=== PATIENT | female | born 1955 | race African-American/Black ===

== ENCOUNTER 2016-09-26 21:34 | Inpatient (IN) ==
[2016-09-26] MEDS ORDERED: Ondansetron 4 MG/2 ML VIAL IVP ONE (21:51)
[2016-09-26] MEDS ORDERED: *HR* Morphine 2 MG/ML SYRINGE IVP ONE (21:51)
--- NOTE | 2016-09-26 21:55 | Emergency Department Note ---
Disposition Clinical Impression: Hyperglycemia Abdominal pain Qualifiers: Abdominal location: generalized Qualified Code(s): R10.84 - Generalized abdominal pain Disposition: Still a Patient Condition: Fair Forms: ED Satisfaction Letter Nausea/Vomiting/Diarrhea HPI - General Chief complaint: ED Nausea/Vomiting/Diarrhea Stated complaint: hyperglycemia/n/abd pain Source: patient Limitations: no limitations Nursing Notes Reviewed: Yes Vital Signs Reviewed: Yes - History of Present Illness HPI Narrative: 60-year-old female presents to the emergency Department chief complaint of abdominal pain and nausea. Patient states that she was seen by her primary care doctor and had an abdominal x-rays, but was told she had a high glucose and was subsequently sent to the emergency department for evaluation and treatment. She says she has had nausea without vomiting no diarrhea. Denies fevers or chills. She said the abdominal pain is diffuse and dull in nature. She is a very poor historian and is unsure what medications she is on she is unsure what allergies she has and she is unsure what her medical conditions are. Pt Subjective Complaint: nausea, abdominal pain Onset (ago): day(s) Description of emesis: food contents Associated Abdominal Pain: Yes If pain, Location of pain: diffuse Radiation: diffuse Severity: none Consistency: constant Improves with: nothing Worsens with: nonthing Associated symptoms: Reports: denies other symptoms - Related Data Home Medications Medication Instructions Recorded Confirmed Oxygen 1 each .ROUTE AD 09/26/16 09/26/16 Previous Rx's Medication Instructions Recorded Docusate [Colace] 1 tab PO BID #60 capsule 02/09/16 Polyethylene Glycol 3350 [MiraLAX] 17 gm PO DAILY #1 tub 02/09/16 Fluticasone Propionate Nasal 50 mcg NS BID #1 bottle 03/30/16 [Flonase] Supplies [SUPPLIES] 1 each .ROUTE DAILY #1 each 03/30/16 Supplies [SUPPLIES] 1 each .ROUTE DAILY #1 each 06/09/16 Loratadine [Claritin] 10 mg PO DAILY #30 capsule 08/22/16 GuaiFENesin/Codeine [Robitussin 5 ml PO Q6HR #240 liquid 09/26/16 w/Codeine] Omeprazole [PriLOSEC] 1 cap PO DAILY #30 cap 09/26/16 Oxycodone HCl/Acetaminophen 1 each PO Q6H PRN #60 tablet 09/26/16 [Percocet 5-325 mg Tablet] Promethazine [Phenergan] 25 mg PO Q6HR PRN #30 tablet 09/26/16 Ranitidine HCl [Zantac] 1 tab PO BID #60 tablet 09/26/16 Vitamin E (Dl,Tocopheryl Acet) 1 tab PO BID #60 cap 09/26/16 [Vitamin E] Allergies Allergy/AdvReac Type Severity Reaction Status Date / Time Penicillins [PCN] Allergy Hives Verified 09/26/16 15:11 All systems ED: reviewed and negative except as stated. Constitutional: Reports: as per HPI Eyes: Reports: as per HPI ENT ED: Reports: as per HPI Cardiovascular: Reports: as per HPI Respiratory: Reports: as per HPI Past Medical History - Past Medical History Attestation: Yes The following information was validated with the patient. Medical history: Reports: asthma, CHF, COPD, diabetes, hypertension Psychiatric history: Reports: no psych history - Social History Smoking Status: Former smoker Smokeless Tobacco Status: No Alcohol use: Reports: none Drug use: Reports: none Physical Exam - General Limitations: no limitations General appearance: alert, in no apparent distress - Head Head exam: atraumatic - Eye Eye exam: Present: normal appearance - ENT ENT exam: normal exam - Neck Neck exam: Present: normal inspection - Chest Chest inspection: Present: normal inspection - Respiratory Respiratory exam: Present: normal lung sounds bilaterally - Cardiovascular Cardiovascular exam: Present: regular rate, normal rhythm - Abdominal Exam Abdominal exam: Present: soft, tenderness, normal bowel sounds. Absent: guarding, rigidity Abdominal tenderness: Present: diffuse - Neurological Exam Neurological exam: Present: alert, oriented X3 - Psychiatric Psychiatric exam: Present: normal affect, normal mood - Skin Skin exam: Present: warm, dry, intact Course Vital Signs Temperature 98.8 F 09/26/16 21:36 Pulse Rate 97 09/26/16 21:36 Respiratory Rate 16 09/26/16 21:36 Blood Pressure 133/88 09/26/16 21:36 O2 Sat by Pulse Oximetry 92 09/26/16 21:36 Temperature 98.8 F 09/26/16 21:36 Pulse Rate 99 09/26/16 22:10 Respiratory Rate 20 09/26/16 22:10 Blood Pressure 106/75 09/26/16 22:10 O2 Sat by Pulse Oximetry 94 09/26/16 22:10 Oxygen Delivery Oxygen Delivery Room Air Nausea/Vomiting/Diarrhea - MDM Narrative Medical decision making narrative: Workup for acute abdominal pain, and hyperglycemia. Have to be judicious about fluid used because patient has CHF. Patient was given IV insulin and a small amount of IV fluids. An ABG was ordered but looks to be resulting more like a VBG VBG was then ordered separately to help determine exactly what it was. At the time of shift in patient's workup was still incomplete. The patient was signed out to Dr. Hunt for follow-up on lab testing and final disposition which I anticipate will be admission to the hospital. We see his addendum for final results. - Lab Data Lab results reviewed: Yes I reviewed the patient's lab results. Lab Results 09/26/16 09/26/16 09/26/16 Range/Units 21:39 22:20 22:20 ABG pH 7.42 (7.32-7.45) pH Units ABG pCO2 42 (35-45) mmHg ABG pO2 49 L* (85-104) mmHg ABG HCO3 27.2 H (21-27) mEQ/L ABG Total CO2 28.5 H (20-26) mEq/L ABG O2 Saturation 85 L (95-98) % ABG Base Excess 2.3 (-2.0 to 3.0) mEq/L Blood Gas Modality RA Inspired O2 21 % POC Glucose 540 H* (58-89) Beta-Hydroxybutyric Acd 0.31 H (0.02-0.27) mmol/L S.B.A.R. - S.B.A.R. Transition of Care: Transition of care to 11 PM [facility] shift doctor. Report was given to . Who assumed care. Very little information was available in terms of lab testing and no radiology reports had been completed at the time of transfer care. Situation: Demographics Background: Presenting Complaint Assessment: Vital Signs, Course and respsone to treatment, Exam Concerns, Pertinant Lab Results, Outstanding Labs Recommendation: Recommendation based on pending studies, treatments, or consults S.B.A.R. Report Given to: Dr Hunt S.B.A.RJoseph Repor Time: 23:06
[2016-09-26 22:28] LABS: ABG Base Excess 2.3 mEq/L (-2.0 to 3.0); ABG HCO3 27.2 mEQ/L (21-27); ABG Oxygen Saturation 85 % (95-98); ABG PCO2 42 mmHg (35-45); ABG PH 7.42 pH Units (7.32-7.45); ABG TCO2 28.5 mEq/L (20-26)
[2016-09-26 22:32] LABS: ABG PO2 49 mmHg (85-104)
[2016-09-26 22:33] LABS: Blood Gas FiO2 21 %
[2016-09-26] MEDS ORDERED: Insulin Human Regular 10 UNIT in 0.9 % Sodium Chloride 10 ML IV ONE (22:47)
[2016-09-26] MEDS ORDERED: 0.9 % Sodium Chloride 250 ML IVC ONE (22:48)
[2016-09-26 22:59] LABS: Bilirubin,Urine Negative (Negative); Blood,Urine Small (Negative); Clarity,Urine Cloudy (Clear); Color,Urine Yellow (Yellow); Glucose,Urine (UA) >=1000 mg/dL (Normal); Ketones,Urine Negative (Negative); Leukocyte Esterase,Urine Small (Negative); Nitrite,Urine Negative (Negative); Protein,Urine 30 mg/dL (Neg-Trace); Specific Gravity,Urine 1.027 (1.010-1.025); Urobilinogen,Urine Normal (Normal)
[2016-09-26 23:04] LABS: Bacteria,Urine Moderate per hpf (None-Few); Hyaline Casts,Urine None Seen per lpf (None-Few); RBC,Urine 15-30 per hpf (0-3); Squamous Epithelial Cell,Urine Many per lpf (None-Few); WBC,Urine 50-100 per hpf (0-3)
[2016-09-26 23:50] LABS: VBG HCO3 26.6 mEq/L (21-27); VBG PH 7.3 pH Units (7.32-7.42)
[2016-09-26 23:57] LABS: Basophils % 0.4 %; Eosinophils % 0.1 %; Hematocrit 45.6 % (35.3-44.9); Hemoglobin 13.8 g/dL (11.5-15.4); Immature Granulocytes % 0.5 % (0-4); Immature Platelets 8.7 % (1.1-6.1); Lymphocytes # 1.3 K/mcL (0.6-4.6); Lymphocytes % 12.8 %; Mean Corpuscular HGB Conc 30.3 g/dL (31.6-35.5); Mean Corpuscular Hemoglobin 21.8 pg (28.0-33.3); Monocytes # 0.3 K/mcL (0.0-1.3); Monocytes % 3.3 %; Platelet Count 136 K/mcL (140-400); Red Blood Count 6.33 M/mcL (3.82-4.97); Red Cell Distribution Width 17.2 % (11.5-14.5); Segmented Neutrophils % 82.9 %
[2016-09-27] LABS: Neutrophils # 8.5 K/mcL (1.6-8.9)
[2016-09-27 00:15] LABS: Anisocytosis 1+ (Not Present); Hypochromasia Present (Not Present); Large Platelets Present (Not Present); Microcytosis Present (Not Present); Platelet Estimate Normal (Normal)
[2016-09-27 00:44] LABS: Albumin/Globulin Ratio 0.7 (1.1-2.2); Bilirubin,Total 1.6 mg/dL (0.2-1.2); Globulin 4.7 g/dL (2.4-3.5)
[2016-09-27 00:45] LABS: Calcium 9.5 mg/dL (8.6-10.8); Total Protein 7.8 g/dL (6.0-8.3)
[2016-09-27 00:46] LABS: Albumin 3.1 g/dL (3.5-5.0)
[2016-09-27] MEDS ORDERED: Levofloxacin 750 MG/150 ML 750 MG/150 ML BAG IVPB STA (00:52)
[2016-09-27] MEDS ORDERED: 0.9 % Sodium Chloride 500 ML IVC ONE ×2 (00:58→20:01)
[2016-09-27] MEDS ORDERED: Insulin Human Regular 20 UNIT in 0.9 % Sodium Chloride 10 ML IV ONE (00:59)
[2016-09-27] MEDS ORDERED: 0.9 % Sodium Chloride 1,000 ML IVC ONE ×2 (02:54→04:17)
--- NOTE | 2016-09-27 02:56 | Emergency Department Note ---
Disposition Clinical Impression: Hyperglycemia, DKA (diabetic ketoacidoses), UTI (urinary tract infection), Hypotension Abdominal pain Qualifiers: Abdominal location: generalized Qualified Code(s): R10.84 - Generalized abdominal pain Disposition: Admitted As Inpatient Condition: Fair Referrals: NO,PCP [Primary Care Provider] - Forms: ED Satisfaction Letter Time of Disposition: 01:00 General Adult HPI - General Chief complaint: ED Nausea/Vomiting/Diarrhea Stated complaint: hyperglycemia/n/abd pain Time Seen by Provider: 09/26/16 23:02 Source: patient Limitations: no limitations - History of Present Illness Pain Scale: 2 - Related Data Home Medications Medication Instructions Recorded Confirmed Oxygen 1 each .ROUTE AD 09/26/16 09/26/16 Previous Rx's Medication Instructions Recorded Docusate [Colace] 1 tab PO BID #60 capsule 02/09/16 Polyethylene Glycol 3350 [MiraLAX] 17 gm PO DAILY #1 tub 02/09/16 Fluticasone Propionate Nasal 50 mcg NS BID #1 bottle 03/30/16 [Flonase] Supplies [SUPPLIES] 1 each .ROUTE DAILY #1 each 03/30/16 Supplies [SUPPLIES] 1 each .ROUTE DAILY #1 each 06/09/16 Loratadine [Claritin] 10 mg PO DAILY #30 capsule 08/22/16 GuaiFENesin/Codeine [Robitussin 5 ml PO Q6HR #240 liquid 09/26/16 w/Codeine] Omeprazole [PriLOSEC] 1 cap PO DAILY #30 cap 09/26/16 Oxycodone HCl/Acetaminophen 1 each PO Q6H PRN #60 tablet 09/26/16 [Percocet 5-325 mg Tablet] Promethazine [Phenergan] 25 mg PO Q6HR PRN #30 tablet 09/26/16 Ranitidine HCl [Zantac] 1 tab PO BID #60 tablet 09/26/16 Vitamin E (Dl,Tocopheryl Acet) 1 tab PO BID #60 cap 09/26/16 [Vitamin E] Allergies Allergy/AdvReac Type Severity Reaction Status Date / Time Penicillins [PCN] Allergy Hives Verified 09/27/16 06:50 Constitutional: Reports: as per HPI Eyes: Reports: as per HPI ENT ED: Reports: as per HPI Cardiovascular: Reports: as per HPI Respiratory: Reports: as per HPI Past Medical History - Past Medical History Medical history: Reports: asthma, CHF, COPD, diabetes, hypertension Psychiatric history: Reports: no psych history - Social History Smoking Status: Former smoker Smokeless Tobacco Status: No Alcohol use: Reports: none Drug use: Reports: none Physical Exam - General Limitations: no limitations General appearance: alert, in no apparent distress Course Vital Signs Temperature 98.8 F 09/26/16 21:36 Pulse Rate 97 09/26/16 21:36 Respiratory Rate 16 09/26/16 21:36 Blood Pressure 133/88 09/26/16 21:36 O2 Sat by Pulse Oximetry 92 09/26/16 21:36 Temperature 98.8 F 09/26/16 21:36 Pulse Rate 100 09/27/16 06:40 Respiratory Rate 20 09/27/16 06:40 Blood Pressure 97/45 09/27/16 06:40 O2 Sat by Pulse Oximetry 96 09/27/16 06:40 Oxygen Delivery Oxygen Delivery Nasal Cannula Procedures - Central Line Placement Right IJ Central Line Inserted*: Yes Central Line Insertion: emergent Consent Obtained: written consent Procedural Pause: verify patient name and date of , timeout performed per policy, yoav and assess the site, assemble equipment and verify supplies, perform hand hygiene Patient Placed on Monitor/Pulse Ox: Yes During the Procedure: clinician is wearing sterile gloves, cap, mask,& gown during insertion, sterile field and sterile technique are maintained, patient's face is covered with drape or mask and wearing a cap, everyone in room is wearing a mask Prep the Procedure Site: apply chloraprep to the skin using a back and forth scrubbing motion, apply chloraprep for 30 seconds (upper body), 1-2 min ( femoral sites), allow prep to dry, drape the patient with a full body drape Local Anesthetic: lidocaine 1% Amount of anesthesia used (mL): 3 Ultrasound Used for Placement: Yes Central Line Lumen Inserted: triple Post Procedure: sutured in place, good blood return, all ports aspirated, flushed, capped, sterile dressing applied, guide wire removed and visualized, dressing is dated Post Procedure X-Ray: tip of catheter in good position, no pneumothorax seen Patient Tolerated Procedure: well, no complications Complications: none Name of Clinician Inserting Central Line: Zackery Date: 09/27/16 Time: 02:56 Medical Decision Making - MDM Narrative Medical decision making narrative: Patient received in sign out from Dr. Rider pending laboratory evaluation, imaging and disposition. Patient blood pressure became hypotensive during her stay and required resuscitation with IV fluids. Patient was possibly going to require pressors for control of her blood pressure. However after administration of 2 L of IV fluid her BP improved to a map greater than 65. Patient given levofloxacin for likely urinary tract infection causing DKA. Patient is comfortable with the plan for admission to the hospital for continuation of care. - Lab Data Result diagrams: 09/27/16 06:06 09/27/16 06:06 Lab Results 09/26/16 09/26/16 09/26/16 Range/Units 21:39 21:51 22:20 WBC (4.3-11.1) K/mcL RBC (3.82-4.97) M/mcL Hgb (11.5-15.4) g/dL Hct (35.3-44.9) % MCV (83.0-100.0) fL MCH (28.0-33.3) pg MCHC (31.6-35.5) g/dL RDW (11.5-14.5) % Plt Count (140-400) K/mcL MPV Immature Gran % (0-4) % Seg Neutrophils % % Lymphocytes % % Monocytes % % Eosinophils % % Basophils % % Neutrophils # (1.6-8.9) K/mcL Lymphocytes # (0.6-4.6) K/mcL Monocytes # (0.0-1.3) K/mcL Eosinophils # (0.0-0.6) K/mcL Basophils # (0.0-0.2) K/mcL Platelet Estimate (Normal) Large Platelets (Not Present) Immature Plt Fraction (1.1-6.1) % Hypochromasia (Not Present) Anisocytosis (Not Present) Microcytosis (Not Present) ABG pH (7.32-7.45) pH Units ABG pCO2 (35-45) mmHg ABG pO2 (85-104) mmHg ABG HCO3 (21-27) mEQ/L ABG Total CO2 (20-26) mEq/L ABG O2 Saturation (95-98) % ABG Base Excess (-2.0 to 3.0) mEq/L VBG pH (7.32-7.42) pH Units VBG pCO2 (41-51) mmHg VBG pO2 (25-40) mmHg VBG HCO3 (21-27) mEq/L Blood Gas Modality Inspired O2 % Sodium (136-145) mEq/L Potassium (3.5-4.5) mEq/L Chloride (98-109) mEq/L Carbon Dioxide (19-29) mEq/L BUN (7-20) mg/dL Creatinine (0.57-1.11) mg/dL Est GFR ( Amer) (> 60) Est GFR (Non-Af Amer) (> 60) BUN/Creatinine Ratio (6-26) Glucose (70-99) mg/dL POC Glucose 540 H* (58-89) Calculated Osmolality (280-300) Calcium (8.6-10.8) mg/dL Magnesium (1.6-2.6) mg/dL Total Bilirubin (0.2-1.2) mg/dL AST (5-34) Units/L ALT (0-55) Units/L Alkaline Phosphatase (38-126) Units/L Serum Total Protein (6.0-8.3) g/dL Albumin (3.5-5.0) g/dL Globulin (2.4-3.5) g/dL Albumin/Globulin Ratio (1.1-2.2) Beta-Hydroxybutyric Acd 0.31 H (0.02-0.27) mmol/L Urine Color Yellow (Yellow) Urine Clarity Cloudy A (Clear) Urine pH 6.0 (5.0-8.0) pH Units Ur Specific [place] 1.027 H (1.010-1.025) Urine Protein 30 H (Neg-Trace) mg/dL Urine Glucose (UA) >=1000 H (Normal) mg/dL Urine Ketones Negative (Negative) mg/dL Urine Blood Small H (Negative) Urine Nitrite Negative (Negative) Urine Bilirubin Negative (Negative) Urine Urobilinogen Normal (Normal) mg/dL Ur Leukocyte Esterase Small H (Negative) Urine Microscopic RBC 15-30 H (0-3) per hpf Urine Microscopic WBC 50-100 H (0-3) per hpf Ur Squamous Epith Cells Many H (None-Few) per lpf Urine Bacteria Moderate H (None-Few) per hpf Hyaline Casts None Seen (None-Few) per lpf Ur Culture Indicated? YES A (NO) 09/26/16 09/26/16 09/26/16 Range/Units 22:20 23:45 23:45 WBC 10.3 (4.3-11.1) K/mcL RBC 6.33 H (3.82-4.97) M/mcL Hgb 13.8 (11.5-15.4) g/dL Hct 45.6 H (35.3-44.9) % MCV 72.0 L (83.0-100.0) fL MCH 21.8 L (28.0-33.3) pg MCHC 30.3 L (31.6-35.5) g/dL RDW 17.2 H (11.5-14.5) % Plt Count 136 L (140-400) K/mcL MPV TNP Immature Gran % 0.5 (0-4) % Seg Neutrophils % 82.9 % Lymphocytes % 12.8 % Monocytes % 3.3 % Eosinophils % 0.1 % Basophils % 0.4 % Neutrophils # 8.5 (1.6-8.9) K/mcL Lymphocytes # 1.3 (0.6-4.6) K/mcL Monocytes # 0.3 (0.0-1.3) K/mcL Eosinophils # 0.0 (0.0-0.6) K/mcL Basophils # 0.0 (0.0-0.2) K/mcL Platelet Estimate Normal (Normal) Large Platelets Present A (Not Present) Immature Plt Fraction 8.7 H (1.1-6.1) % Hypochromasia Present A (Not Present) Anisocytosis 1+ A (Not Present) Microcytosis Present A (Not Present) ABG pH 7.42 (7.32-7.45) pH Units ABG pCO2 42 (35-45) mmHg ABG pO2 49 L* (85-104) mmHg ABG HCO3 27.2 H (21-27) mEQ/L ABG Total CO2 28.5 H (20-26) mEq/L ABG O2 Saturation 85 L (95-98) % ABG Base Excess 2.3 (-2.0 to 3.0) mEq/L VBG pH (7.32-7.42) pH Units VBG pCO2 (41-51) mmHg VBG pO2 (25-40) mmHg VBG HCO3 (21-27) mEq/L Blood Gas Modality RA Inspired O2 21 % Sodium 133 L (136-145) mEq/L Potassium 5.0 H (3.5-4.5) mEq/L Chloride 95 L (98-109) mEq/L Carbon Dioxide 22 (19-29) mEq/L BUN 20 (7-20) mg/dL Creatinine 2.04 H (0.57-1.11) mg/dL Est GFR ( Amer) 30 L (> 60) Est GFR (Non-Af Amer) 25 L (> 60) BUN/Creatinine Ratio 10 (6-26) Glucose 529 H* (70-99) mg/dL POC Glucose (58-89) Calculated Osmolality 303 H (280-300) Calcium 9.5 (8.6-10.8) mg/dL Magnesium (1.6-2.6) mg/dL Total Bilirubin 1.6 H (0.2-1.2) mg/dL AST 28 (5-34) Units/L ALT 43 (0-55) Units/L Alkaline Phosphatase 118 (38-126) Units/L Serum Total Protein 7.8 (6.0-8.3) g/dL Albumin 3.1 L (3.5-5.0) g/dL Globulin 4.7 H (2.4-3.5) g/dL Albumin/Globulin Ratio 0.7 L (1.1-2.2) Beta-Hydroxybutyric Acd (0.02-0.27) mmol/L Urine Color (Yellow) Urine Clarity (Clear) Urine pH (5.0-8.0) pH Units Ur Specific [place] (1.010-1.025) Urine Protein (Neg-Trace) mg/dL Urine Glucose (UA) (Normal) mg/dL Urine Ketones (Negative) mg/dL Urine Blood (Negative) Urine Nitrite (Negative) Urine Bilirubin (Negative) Urine Urobilinogen (Normal) mg/dL Ur Leukocyte Esterase (Negative) Urine Microscopic RBC (0-3) per hpf Urine Microscopic WBC (0-3) per hpf Ur Squamous Epith Cells (None-Few) per lpf Urine Bacteria (None-Few) per hpf Hyaline Casts (None-Few) per lpf Ur Culture Indicated? (NO) 09/26/16 09/27/16 09/27/16 Range/Units 23:45 00:21 00:22 WBC (4.3-11.1) K/mcL RBC (3.82-4.97) M/mcL Hgb (11.5-15.4) g/dL Hct (35.3-44.9) % MCV (83.0-100.0) fL MCH (28.0-33.3) pg MCHC (31.6-35.5) g/dL RDW (11.5-14.5) % Plt Count (140-400) K/mcL MPV Immature Gran % (0-4) % Seg Neutrophils % % Lymphocytes % % Monocytes % % Eosinophils % % Basophils % % Neutrophils # (1.6-8.9) K/mcL Lymphocytes # (0.6-4.6) K/mcL Monocytes # (0.0-1.3) K/mcL Eosinophils # (0.0-0.6) K/mcL Basophils # (0.0-0.2) K/mcL Platelet Estimate (Normal) Large Platelets (Not Present) Immature Plt Fraction (1.1-6.1) % Hypochromasia (Not Present) Anisocytosis (Not Present) Microcytosis (Not Present) ABG pH (7.32-7.45) pH Units ABG pCO2 (35-45) mmHg ABG pO2 (85-104) mmHg ABG HCO3 (21-27) mEQ/L ABG Total CO2 (20-26) mEq/L ABG O2 Saturation (95-98) % ABG Base Excess (-2.0 to 3.0) mEq/L VBG pH 7.30 L (7.32-7.42) pH Units VBG pCO2 54 H (41-51) mmHg VBG pO2 25 (25-40) mmHg VBG HCO3 26.6 (21-27) mEq/L Blood Gas Modality Inspired O2 % Sodium (136-145) mEq/L Potassium (3.5-4.5) mEq/L Chloride (98-109) mEq/L Carbon Dioxide (19-29) mEq/L BUN (7-20) mg/dL Creatinine (0.57-1.11) mg/dL Est GFR ( Amer) (> 60) Est GFR (Non-Af Amer) (> 60) BUN/Creatinine Ratio (6-26) Glucose (70-99) mg/dL POC Glucose 449 H* 468 H* (58-89) Calculated Osmolality (280-300) Calcium (8.6-10.8) mg/dL Magnesium (1.6-2.6) mg/dL Total Bilirubin (0.2-1.2) mg/dL AST (5-34) Units/L ALT (0-55) Units/L Alkaline Phosphatase (38-126) Units/L Serum Total Protein (6.0-8.3) g/dL Albumin (3.5-5.0) g/dL Globulin (2.4-3.5) g/dL Albumin/Globulin Ratio (1.1-2.2) Beta-Hydroxybutyric Acd (0.02-0.27) mmol/L Urine Color (Yellow) Urine Clarity (Clear) Urine pH (5.0-8.0) pH Units Ur Specific [place] (1.010-1.025) Urine Protein (Neg-Trace) mg/dL Urine Glucose (UA) (Normal) mg/dL Urine Ketones (Negative) mg/dL Urine Blood (Negative) Urine Nitrite (Negative) Urine Bilirubin (Negative) Urine Urobilinogen (Normal) mg/dL Ur Leukocyte Esterase (Negative) Urine Microscopic RBC (0-3) per hpf Urine Microscopic WBC (0-3) per hpf Ur Squamous Epith Cells (None-Few) per lpf Urine Bacteria (None-Few) per hpf Hyaline Casts (None-Few) per lpf Ur Culture Indicated? (NO) 09/27/16 09/27/16 09/27/16 Range/Units 04:42 06:06 06:06 WBC 15.8 H D (4.3-11.1) K/mcL RBC 5.26 H (3.82-4.97) M/mcL Hgb 11.7 D (11.5-15.4) g/dL Hct 37.3 (35.3-44.9) % MCV 70.9 L (83.0-100.0) fL MCH 22.2 L (28.0-33.3) pg MCHC 31.4 L (31.6-35.5) g/dL RDW 15.7 H (11.5-14.5) % Plt Count 137 L (140-400) K/mcL MPV 12.4 Immature Gran % (0-4) % Seg Neutrophils % % Lymphocytes % % Monocytes % % Eosinophils % % Basophils % % Neutrophils # (1.6-8.9) K/mcL Lymphocytes # (0.6-4.6) K/mcL Monocytes # (0.0-1.3) K/mcL Eosinophils # (0.0-0.6) K/mcL Basophils # (0.0-0.2) K/mcL Platelet Estimate (Normal) Large Platelets (Not Present) Immature Plt Fraction 8.6 H (1.1-6.1) % Hypochromasia (Not Present) Anisocytosis (Not Present) Microcytosis (Not Present) ABG pH (7.32-7.45) pH Units ABG pCO2 (35-45) mmHg ABG pO2 (85-104) mmHg ABG HCO3 (21-27) mEQ/L ABG Total CO2 (20-26) mEq/L ABG O2 Saturation (95-98) % ABG Base Excess (-2.0 to 3.0) mEq/L VBG pH (7.32-7.42) pH Units VBG pCO2 (41-51) mmHg VBG pO2 (25-40) mmHg VBG HCO3 (21-27) mEq/L Blood Gas Modality Inspired O2 % Sodium 133 L (136-145) mEq/L Potassium 4.7 H (3.5-4.5) mEq/L Chloride 101 (98-109) mEq/L Carbon Dioxide 22 (19-29) mEq/L BUN 22 H (7-20) mg/dL Creatinine 2.54 H (0.57-1.11) mg/dL Est GFR ( Amer) 23 L (> 60) Est GFR (Non-Af Amer) 19 L (> 60) BUN/Creatinine Ratio 9 (6-26) Glucose 478 H (70-99) mg/dL POC Glucose 409 H* (58-89) Calculated Osmolality 300 (280-300) Calcium 8.1 L (8.6-10.8) mg/dL Magnesium 1.1 L (1.6-2.6) mg/dL Total Bilirubin (0.2-1.2) mg/dL AST (5-34) Units/L ALT (0-55) Units/L Alkaline Phosphatase (38-126) Units/L Serum Total Protein (6.0-8.3) g/dL Albumin (3.5-5.0) g/dL Globulin (2.4-3.5) g/dL Albumin/Globulin Ratio (1.1-2.2) Beta-Hydroxybutyric Acd (0.02-0.27) mmol/L Urine Color (Yellow) Urine Clarity (Clear) Urine pH (5.0-8.0) pH Units Ur Specific [place] (1.010-1.025) Urine Protein (Neg-Trace) mg/dL Urine Glucose (UA) (Normal) mg/dL Urine Ketones (Negative) mg/dL Urine Blood (Negative) Urine Nitrite (Negative) Urine Bilirubin (Negative) Urine Urobilinogen (Normal) mg/dL Ur Leukocyte Esterase (Negative) Urine Microscopic RBC (0-3) per hpf Urine Microscopic WBC (0-3) per hpf Ur Squamous Epith Cells (None-Few) per lpf Urine Bacteria (None-Few) per hpf Hyaline Casts (None-Few) per lpf Ur Culture Indicated? (NO) Critical Care Time Critical Care Time: Yes Total Critical Care Time: 62 Attestation: The high probability of a clinically significant, sudden or life threatening deterioration of the cardiovascular system(s) required my full and direct attention, intervention and personal management. The aggregate critical care time was 62 minutes. This time is in addition to time spent performing reported procedures but includes the following: x Data Review and interpretation x Patient assessment and monitoring of vital signs x Documentation x Medication orders and management
[2016-09-27] MEDS ORDERED: 0.9 % Sodium Chloride 1,000 ML ONE (04:16)
[2016-09-27] MEDS ORDERED: Sodium Bicarbonate 50 MEQ/50 ML VIAL IVP ONE (05:06)
[2016-09-27] MEDS ORDERED: Sodium Bicarbonate 150 MEQ in D5% in Water 1,000 ML IVC SCH (05:15)
[2016-09-27 06:18] LABS: Mean Corpuscular Hemoglobin 22.2 pg (28.0-33.3)
[2016-09-27 06:20] LABS: Hematocrit 37.3 % (35.3-44.9); Hemoglobin 11.7 g/dL (11.5-15.4); Immature Platelets 8.6 % (1.1-6.1); Mean Corpuscular HGB Conc 31.4 g/dL (31.6-35.5); Mean Corpuscular Volume 70.9 fL (83.0-100.0); Mean Platelet Volume 12.4 fL (9.4-12.4); Platelet Count 137 K/mcL (140-400); Red Blood Count 5.26 M/mcL (3.82-4.97); Red Cell Distribution Width 15.7 % (11.5-14.5)
[2016-09-27 06:32] LABS: Calcium 8.1 mg/dL (8.6-10.8); Magnesium 1.1 mg/dL (1.6-2.6); Potassium 4.7 mEq/L (3.5-4.5)
[2016-09-27] MEDS ORDERED: Sodium Bicarbonate 50 MEQ/50 ML VIAL ONE (06:58)
[2016-09-27 07:03] LABS: Hypochromasia Present (Not Present); Lymphocytes # 2.2 K/mcL (0.6-4.6); Neutrophils # 11.7 K/mcL (1.6-8.9)
[2016-09-27 07:04] LABS: Large Platelets Present (Not Present); Microcytosis Present (Not Present); Platelet Estimate Normal (Normal)
[2016-09-27] MEDS ORDERED: Insulin Regular, Human 100 UNIT/ML IV PRN (07:10)
[2016-09-27] MEDS ORDERED: *HR* Dextrose 50 % in Water (Syg) 50 ML SYRINGE IVP PRN ×2 (07:10→14:30)
[2016-09-27] MEDS ORDERED: D5% in 0.45% NACL 1,000 ML IVC PRN (07:10)
--- NOTE | 2016-09-27 07:57 | Emergency Department Note ---
Disposition Clinical Impression: Hyperglycemia, DKA (diabetic ketoacidoses), UTI (urinary tract infection), Hypotension Abdominal pain Qualifiers: Abdominal location: generalized Qualified Code(s): R10.84 - Generalized abdominal pain Disposition: Admitted As Inpatient Condition: Fair Referrals: NO,PCP [Primary Care Provider] - Forms: ED Satisfaction Letter General Adult HPI - General Chief complaint: ED Nausea/Vomiting/Diarrhea Stated complaint: hyperglycemia/n/abd pain Time Seen by Provider: 09/26/16 23:02 Source: patient Limitations: no limitations - History of Present Illness Pain Scale: 3 - Related Data Home Medications Medication Instructions Recorded Confirmed Oxygen 1 each .ROUTE AD 09/26/16 09/26/16 Previous Rx's Medication Instructions Recorded Docusate [Colace] 1 tab PO BID #60 capsule 02/09/16 Polyethylene Glycol 3350 [MiraLAX] 17 gm PO DAILY #1 tub 02/09/16 Fluticasone Propionate Nasal 50 mcg NS BID #1 bottle 03/30/16 [Flonase] Supplies [SUPPLIES] 1 each .ROUTE DAILY #1 each 03/30/16 Supplies [SUPPLIES] 1 each .ROUTE DAILY #1 each 06/09/16 Loratadine [Claritin] 10 mg PO DAILY #30 capsule 08/22/16 GuaiFENesin/Codeine [Robitussin 5 ml PO Q6HR #240 liquid 09/26/16 w/Codeine] Omeprazole [PriLOSEC] 1 cap PO DAILY #30 cap 09/26/16 Oxycodone HCl/Acetaminophen 1 each PO Q6H PRN #60 tablet 09/26/16 [Percocet 5-325 mg Tablet] Promethazine [Phenergan] 25 mg PO Q6HR PRN #30 tablet 09/26/16 Ranitidine HCl [Zantac] 1 tab PO BID #60 tablet 09/26/16 Vitamin E (Dl,Tocopheryl Acet) 1 tab PO BID #60 cap 09/26/16 [Vitamin E] Allergies Allergy/AdvReac Type Severity Reaction Status Date / Time Penicillins [PCN] Allergy Hives Verified 09/27/16 06:50 Constitutional: Reports: as per HPI Eyes: Reports: as per HPI ENT ED: Reports: as per HPI Cardiovascular: Reports: as per HPI Respiratory: Reports: as per HPI Past Medical History - Past Medical History Medical history: Reports: asthma, CHF, COPD, diabetes, hypertension Psychiatric history: Reports: no psych history - Social History Smoking Status: Former smoker Smokeless Tobacco Status: No Alcohol use: Reports: none Drug use: Reports: none Physical Exam - General Limitations: no limitations General appearance: alert, in no apparent distress Course Vital Signs Temperature 98.8 F 09/26/16 21:36 Pulse Rate 97 09/26/16 21:36 Respiratory Rate 16 09/26/16 21:36 Blood Pressure 133/88 09/26/16 21:36 O2 Sat by Pulse Oximetry 92 09/26/16 21:36 Temperature 98.8 F 09/26/16 21:36 Pulse Rate 99 09/27/16 07:45 Respiratory Rate 24 09/27/16 07:45 Blood Pressure 112/96 09/27/16 07:45 O2 Sat by Pulse Oximetry 96 09/27/16 07:45 Oxygen Delivery Oxygen Delivery Nasal Cannula Medical Decision Making - Lab Data Result diagrams: 09/27/16 06:06 09/27/16 06:06 Lab Results 09/26/16 09/26/16 09/26/16 Range/Units 21:39 21:51 22:20 WBC (4.3-11.1) K/mcL RBC (3.82-4.97) M/mcL Hgb (11.5-15.4) g/dL Hct (35.3-44.9) % MCV (83.0-100.0) fL MCH (28.0-33.3) pg MCHC (31.6-35.5) g/dL RDW (11.5-14.5) % Plt Count (140-400) K/mcL MPV Immature Gran % (0-4) % Seg Neutrophils % % Band Neutrophils % (0-4) % Lymphocytes % % Monocytes % % Eosinophils % % Basophils % % Metamyelocytes % (0) % Myelocytes % (0) % Neutrophils # (1.6-8.9) K/mcL Lymphocytes # (0.6-4.6) K/mcL Monocytes # (0.0-1.3) K/mcL Eosinophils # (0.0-0.6) K/mcL Basophils # (0.0-0.2) K/mcL Platelet Estimate (Normal) Large Platelets (Not Present) Immature Plt Fraction (1.1-6.1) % Hypochromasia (Not Present) Anisocytosis (Not Present) Microcytosis (Not Present) ABG pH (7.32-7.45) pH Units ABG pCO2 (35-45) mmHg ABG pO2 (85-104) mmHg ABG HCO3 (21-27) mEQ/L ABG Total CO2 (20-26) mEq/L ABG O2 Saturation (95-98) % ABG Base Excess (-2.0 to 3.0) mEq/L VBG pH (7.32-7.42) pH Units VBG pCO2 (41-51) mmHg VBG pO2 (25-40) mmHg VBG HCO3 (21-27) mEq/L Blood Gas Modality Inspired O2 % Sodium (136-145) mEq/L Potassium (3.5-4.5) mEq/L Chloride (98-109) mEq/L Carbon Dioxide (19-29) mEq/L BUN (7-20) mg/dL Creatinine (0.57-1.11) mg/dL Est GFR ( Amer) (> 60) Est GFR (Non-Af Amer) (> 60) BUN/Creatinine Ratio (6-26) Glucose (70-99) mg/dL POC Glucose 540 H* (58-89) Calculated Osmolality (280-300) Lactic Acid (0.5-2.2) mmol/L Calcium (8.6-10.8) mg/dL Magnesium (1.6-2.6) mg/dL Total Bilirubin (0.2-1.2) mg/dL AST (5-34) Units/L ALT (0-55) Units/L Alkaline Phosphatase (38-126) Units/L Serum Total Protein (6.0-8.3) g/dL Albumin (3.5-5.0) g/dL Globulin (2.4-3.5) g/dL Albumin/Globulin Ratio (1.1-2.2) Beta-Hydroxybutyric Acd 0.31 H (0.02-0.27) mmol/L Urine Color Yellow (Yellow) Urine Clarity Cloudy A (Clear) Urine pH 6.0 (5.0-8.0) pH Units Ur Specific [place] 1.027 H (1.010-1.025) Urine Protein 30 H (Neg-Trace) mg/dL Urine Glucose (UA) >=1000 H (Normal) mg/dL Urine Ketones Negative (Negative) mg/dL Urine Blood Small H (Negative) Urine Nitrite Negative (Negative) Urine Bilirubin Negative (Negative) Urine Urobilinogen Normal (Normal) mg/dL Ur Leukocyte Esterase Small H (Negative) Urine Microscopic RBC 15-30 H (0-3) per hpf Urine Microscopic WBC 50-100 H (0-3) per hpf Ur Squamous Epith Cells Many H (None-Few) per lpf Urine Bacteria Moderate H (None-Few) per hpf Hyaline Casts None Seen (None-Few) per lpf Ur Culture Indicated? YES A (NO) 09/26/16 09/26/16 09/26/16 Range/Units 22:20 23:45 23:45 WBC 10.3 (4.3-11.1) K/mcL RBC 6.33 H (3.82-4.97) M/mcL Hgb 13.8 (11.5-15.4) g/dL Hct 45.6 H (35.3-44.9) % MCV 72.0 L (83.0-100.0) fL MCH 21.8 L (28.0-33.3) pg MCHC 30.3 L (31.6-35.5) g/dL RDW 17.2 H (11.5-14.5) % Plt Count 136 L (140-400) K/mcL MPV TNP Immature Gran % 0.5 (0-4) % Seg Neutrophils % 82.9 % Band Neutrophils % (0-4) % Lymphocytes % 12.8 % Monocytes % 3.3 % Eosinophils % 0.1 % Basophils % 0.4 % Metamyelocytes % (0) % Myelocytes % (0) % Neutrophils # 8.5 (1.6-8.9) K/mcL Lymphocytes # 1.3 (0.6-4.6) K/mcL Monocytes # 0.3 (0.0-1.3) K/mcL Eosinophils # 0.0 (0.0-0.6) K/mcL Basophils # 0.0 (0.0-0.2) K/mcL Platelet Estimate Normal (Normal) Large Platelets Present A (Not Present) Immature Plt Fraction 8.7 H (1.1-6.1) % Hypochromasia Present A (Not Present) Anisocytosis 1+ A (Not Present) Microcytosis Present A (Not Present) ABG pH 7.42 (7.32-7.45) pH Units ABG pCO2 42 (35-45) mmHg ABG pO2 49 L* (85-104) mmHg ABG HCO3 27.2 H (21-27) mEQ/L ABG Total CO2 28.5 H (20-26) mEq/L ABG O2 Saturation 85 L (95-98) % ABG Base Excess 2.3 (-2.0 to 3.0) mEq/L VBG pH (7.32-7.42) pH Units VBG pCO2 (41-51) mmHg VBG pO2 (25-40) mmHg VBG HCO3 (21-27) mEq/L Blood Gas Modality RA Inspired O2 21 % Sodium 133 L (136-145) mEq/L Potassium 5.0 H (3.5-4.5) mEq/L Chloride 95 L (98-109) mEq/L Carbon Dioxide 22 (19-29) mEq/L BUN 20 (7-20) mg/dL Creatinine 2.04 H (0.57-1.11) mg/dL Est GFR ( Amer) 30 L (> 60) Est GFR (Non-Af Amer) 25 L (> 60) BUN/Creatinine Ratio 10 (6-26) Glucose 529 H* (70-99) mg/dL POC Glucose (58-89) Calculated Osmolality 303 H (280-300) Lactic Acid (0.5-2.2) mmol/L Calcium 9.5 (8.6-10.8) mg/dL Magnesium (1.6-2.6) mg/dL Total Bilirubin 1.6 H (0.2-1.2) mg/dL AST 28 (5-34) Units/L ALT 43 (0-55) Units/L Alkaline Phosphatase 118 (38-126) Units/L Serum Total Protein 7.8 (6.0-8.3) g/dL Albumin 3.1 L (3.5-5.0) g/dL Globulin 4.7 H (2.4-3.5) g/dL Albumin/Globulin Ratio 0.7 L (1.1-2.2) Beta-Hydroxybutyric Acd (0.02-0.27) mmol/L Urine Color (Yellow) Urine Clarity (Clear) Urine pH (5.0-8.0) pH Units Ur Specific [place] (1.010-1.025) Urine Protein (Neg-Trace) mg/dL Urine Glucose (UA) (Normal) mg/dL Urine Ketones (Negative) mg/dL Urine Blood (Negative) Urine Nitrite (Negative) Urine Bilirubin (Negative) Urine Urobilinogen (Normal) mg/dL Ur Leukocyte Esterase (Negative) Urine Microscopic RBC (0-3) per hpf Urine Microscopic WBC (0-3) per hpf Ur Squamous Epith Cells (None-Few) per lpf Urine Bacteria (None-Few) per hpf Hyaline Casts (None-Few) per lpf Ur Culture Indicated? (NO) 09/26/16 09/27/16 09/27/16 Range/Units 23:45 00:21 00:22 WBC (4.3-11.1) K/mcL RBC (3.82-4.97) M/mcL Hgb (11.5-15.4) g/dL Hct (35.3-44.9) % MCV (83.0-100.0) fL MCH (28.0-33.3) pg MCHC (31.6-35.5) g/dL RDW (11.5-14.5) % Plt Count (140-400) K/mcL MPV Immature Gran % (0-4) % Seg Neutrophils % % Band Neutrophils % (0-4) % Lymphocytes % % Monocytes % % Eosinophils % % Basophils % % Metamyelocytes % (0) % Myelocytes % (0) % Neutrophils # (1.6-8.9) K/mcL Lymphocytes # (0.6-4.6) K/mcL Monocytes # (0.0-1.3) K/mcL Eosinophils # (0.0-0.6) K/mcL Basophils # (0.0-0.2) K/mcL Platelet Estimate (Normal) Large Platelets (Not Present) Immature Plt Fraction (1.1-6.1) % Hypochromasia (Not Present) Anisocytosis (Not Present) Microcytosis (Not Present) ABG pH (7.32-7.45) pH Units ABG pCO2 (35-45) mmHg ABG pO2 (85-104) mmHg ABG HCO3 (21-27) mEQ/L ABG Total CO2 (20-26) mEq/L ABG O2 Saturation (95-98) % ABG Base Excess (-2.0 to 3.0) mEq/L VBG pH 7.30 L (7.32-7.42) pH Units VBG pCO2 54 H (41-51) mmHg VBG pO2 25 (25-40) mmHg VBG HCO3 26.6 (21-27) mEq/L Blood Gas Modality Inspired O2 % Sodium (136-145) mEq/L Potassium (3.5-4.5) mEq/L Chloride (98-109) mEq/L Carbon Dioxide (19-29) mEq/L BUN (7-20) mg/dL Creatinine (0.57-1.11) mg/dL Est GFR ( Amer) (> 60) Est GFR (Non-Af Amer) (> 60) BUN/Creatinine Ratio (6-26) Glucose (70-99) mg/dL POC Glucose 449 H* 468 H* (58-89) Calculated Osmolality (280-300) Lactic Acid (0.5-2.2) mmol/L Calcium (8.6-10.8) mg/dL Magnesium (1.6-2.6) mg/dL Total Bilirubin (0.2-1.2) mg/dL AST (5-34) Units/L ALT (0-55) Units/L Alkaline Phosphatase (38-126) Units/L Serum Total Protein (6.0-8.3) g/dL Albumin (3.5-5.0) g/dL Globulin (2.4-3.5) g/dL Albumin/Globulin Ratio (1.1-2.2) Beta-Hydroxybutyric Acd (0.02-0.27) mmol/L Urine Color (Yellow) Urine Clarity (Clear) Urine pH (5.0-8.0) pH Units Ur Specific [place] (1.010-1.025) Urine Protein (Neg-Trace) mg/dL Urine Glucose (UA) (Normal) mg/dL Urine Ketones (Negative) mg/dL Urine Blood (Negative) Urine Nitrite (Negative) Urine Bilirubin (Negative) Urine Urobilinogen (Normal) mg/dL Ur Leukocyte Esterase (Negative) Urine Microscopic RBC (0-3) per hpf Urine Microscopic WBC (0-3) per hpf Ur Squamous Epith Cells (None-Few) per lpf Urine Bacteria (None-Few) per hpf Hyaline Casts (None-Few) per lpf Ur Culture Indicated? (NO) 09/27/16 09/27/16 09/27/16 Range/Units 04:42 06:06 06:06 WBC 15.8 H D (4.3-11.1) K/mcL RBC 5.26 H (3.82-4.97) M/mcL Hgb 11.7 D (11.5-15.4) g/dL Hct 37.3 (35.3-44.9) % MCV 70.9 L (83.0-100.0) fL MCH 22.2 L (28.0-33.3) pg MCHC 31.4 L (31.6-35.5) g/dL RDW 15.7 H (11.5-14.5) % Plt Count 137 L (140-400) K/mcL MPV 12.4 Immature Gran % (0-4) % Seg Neutrophils % 70.0 % Band Neutrophils % 4.0 (0-4) % Lymphocytes % 14.0 % Monocytes % 6.0 % Eosinophils % % Basophils % % Metamyelocytes % 4.0 H (0) % Myelocytes % 2.0 H (0) % Neutrophils # 11.7 H (1.6-8.9) K/mcL Lymphocytes # 2.2 (0.6-4.6) K/mcL Monocytes # 1.0 (0.0-1.3) K/mcL Eosinophils # (0.0-0.6) K/mcL Basophils # (0.0-0.2) K/mcL Platelet Estimate Normal (Normal) Large Platelets Present A (Not Present) Immature Plt Fraction 8.6 H (1.1-6.1) % Hypochromasia Present A (Not Present) Anisocytosis (Not Present) Microcytosis Present A (Not Present) ABG pH (7.32-7.45) pH Units ABG pCO2 (35-45) mmHg ABG pO2 (85-104) mmHg ABG HCO3 (21-27) mEQ/L ABG Total CO2 (20-26) mEq/L ABG O2 Saturation (95-98) % ABG Base Excess (-2.0 to 3.0) mEq/L VBG pH (7.32-7.42) pH Units VBG pCO2 (41-51) mmHg VBG pO2 (25-40) mmHg VBG HCO3 (21-27) mEq/L Blood Gas Modality Inspired O2 % Sodium 133 L (136-145) mEq/L Potassium 4.7 H (3.5-4.5) mEq/L Chloride 101 (98-109) mEq/L Carbon Dioxide 22 (19-29) mEq/L BUN 22 H (7-20) mg/dL Creatinine 2.54 H (0.57-1.11) mg/dL Est GFR ( Amer) 23 L (> 60) Est GFR (Non-Af Amer) 19 L (> 60) BUN/Creatinine Ratio 9 (6-26) Glucose 478 H (70-99) mg/dL POC Glucose 409 H* (58-89) Calculated Osmolality 300 (280-300) Lactic Acid (0.5-2.2) mmol/L Calcium 8.1 L (8.6-10.8) mg/dL Magnesium 1.1 L (1.6-2.6) mg/dL Total Bilirubin (0.2-1.2) mg/dL AST (5-34) Units/L ALT (0-55) Units/L Alkaline Phosphatase (38-126) Units/L Serum Total Protein (6.0-8.3) g/dL Albumin (3.5-5.0) g/dL Globulin (2.4-3.5) g/dL Albumin/Globulin Ratio (1.1-2.2) Beta-Hydroxybutyric Acd (0.02-0.27) mmol/L Urine Color (Yellow) Urine Clarity (Clear) Urine pH (5.0-8.0) pH Units Ur Specific [place] (1.010-1.025) Urine Protein (Neg-Trace) mg/dL Urine Glucose (UA) (Normal) mg/dL Urine Ketones (Negative) mg/dL Urine Blood (Negative) Urine Nitrite (Negative) Urine Bilirubin (Negative) Urine Urobilinogen (Normal) mg/dL Ur Leukocyte Esterase (Negative) Urine Microscopic RBC (0-3) per hpf Urine Microscopic WBC (0-3) per hpf Ur Squamous Epith Cells (None-Few) per lpf Urine Bacteria (None-Few) per hpf Hyaline Casts (None-Few) per lpf Ur Culture Indicated? (NO) 09/27/16 09/27/16 Range/Units 07:54 07:54 WBC (4.3-11.1) K/mcL RBC (3.82-4.97) M/mcL Hgb (11.5-15.4) g/dL Hct (35.3-44.9) % MCV (83.0-100.0) fL MCH (28.0-33.3) pg MCHC (31.6-35.5) g/dL RDW (11.5-14.5) % Plt Count (140-400) K/mcL MPV Immature Gran % (0-4) % Seg Neutrophils % % Band Neutrophils % (0-4) % Lymphocytes % % Monocytes % % Eosinophils % % Basophils % % Metamyelocytes % (0) % Myelocytes % (0) % Neutrophils # (1.6-8.9) K/mcL Lymphocytes # (0.6-4.6) K/mcL Monocytes # (0.0-1.3) K/mcL Eosinophils # (0.0-0.6) K/mcL Basophils # (0.0-0.2) K/mcL Platelet Estimate (Normal) Large Platelets (Not Present) Immature Plt Fraction (1.1-6.1) % Hypochromasia (Not Present) Anisocytosis (Not Present) Microcytosis (Not Present) ABG pH (7.32-7.45) pH Units ABG pCO2 (35-45) mmHg ABG pO2 (85-104) mmHg ABG HCO3 (21-27) mEQ/L ABG Total CO2 (20-26) mEq/L ABG O2 Saturation (95-98) % ABG Base Excess (-2.0 to 3.0) mEq/L VBG pH 7.41 (7.32-7.42) pH Units VBG pCO2 45 (41-51) mmHg VBG pO2 51 H (25-40) mmHg VBG HCO3 28.5 H (21-27) mEq/L Blood Gas Modality Inspired O2 % Sodium (136-145) mEq/L Potassium (3.5-4.5) mEq/L Chloride (98-109) mEq/L Carbon Dioxide (19-29) mEq/L BUN (7-20) mg/dL Creatinine (0.57-1.11) mg/dL Est GFR ( Amer) (> 60) Est GFR (Non-Af Amer) (> 60) BUN/Creatinine Ratio (6-26) Glucose (70-99) mg/dL POC Glucose (58-89) Calculated Osmolality (280-300) Lactic Acid 2.0 (0.5-2.2) mmol/L Calcium (8.6-10.8) mg/dL Magnesium (1.6-2.6) mg/dL Total Bilirubin (0.2-1.2) mg/dL AST (5-34) Units/L ALT (0-55) Units/L Alkaline Phosphatase (38-126) Units/L Serum Total Protein (6.0-8.3) g/dL Albumin (3.5-5.0) g/dL Globulin (2.4-3.5) g/dL Albumin/Globulin Ratio (1.1-2.2) Beta-Hydroxybutyric Acd (0.02-0.27) mmol/L Urine Color (Yellow) Urine Clarity (Clear) Urine pH (5.0-8.0) pH Units Ur Specific [place] (1.010-1.025) Urine Protein (Neg-Trace) mg/dL Urine Glucose (UA) (Normal) mg/dL Urine Ketones (Negative) mg/dL Urine Blood (Negative) Urine Nitrite (Negative) Urine Bilirubin (Negative) Urine Urobilinogen (Normal) mg/dL Ur Leukocyte Esterase (Negative) Urine Microscopic RBC (0-3) per hpf Urine Microscopic WBC (0-3) per hpf Ur Squamous Epith Cells (None-Few) per lpf Urine Bacteria (None-Few) per hpf Hyaline Casts (None-Few) per lpf Ur Culture Indicated? (NO) Attestation Statement - Attestation Attestation: Care assumed from at 7 AM pending admission. Patient with a known history of diabetes presented with hyperglycemia. She was hypotensive. She required IV fluids through a central line. 07:30: Dr. Stockton, aspirins, recommends admission to the ICU based on her persistent hypotension. I discussed this case with the lace sewer states the patient does not need an ICU bed. The hospitalist and lace sewer discussed this case and mutually agreed that the patient could go to an ICU bed, however there are none available at this time. Recommended transfer. The patient agrees to be transferred to a tertiary center. Call placed to [facility] 08:32: Dr. Welsh accepts transfer to [facility]
[2016-09-27 08:02] LABS: VBG HCO3 28.5 mEq/L (21-27); VBG PH 7.41 pH Units (7.32-7.42)
[2016-09-27] MEDS: Insulin Regular, Human 100 UNIT/ML IV PRN ×2 (10:52→12:41)
[2016-09-27] MEDS ORDERED: Vancomycin 1,000 MG in D5% in Water 250 ML IVPB SCH (14:00)
[2016-09-27] MEDS ORDERED: Magnesium Sulfate 2 GM in D5% in Water 100 ML IVPB ONE (14:07)
[2016-09-27] MEDS ORDERED: Vancomycin 2,000 MG in D5% in Water 500 ML IVPB ONE (14:13)
--- NOTE | 2016-09-27 14:13 | Event Note ---
Date of Encounter: 09/27/16 Time of Encounter: 14:25 Patient seen and examined with nurse practitioner. Acute pyelonephritis with severe sepsis. She had received 5 L of fluids in the emergency room. Blood pressure currently 110 to 120 systolic. She still tachycardic rate 110-120. ICU evaluated the patient and felt that she can go to step down bed. Blood cultures and urine culture will be drawn broad-spectrum antibiotics with vancomycin and cefepime. Lactic acid now is 2. She is currently alert, oriented times 3. She has a central line. Will attempt to check central venous pressure. Continue normal saline 100 ml/h. Perera catheter will be placed. hourly monitoring of urine output. Keep MAP > 65 at all times. If map decreases below 65 shall be transferred to intensive care unit for pressor support.
[2016-09-27] MEDS ORDERED: 0.9 % Sodium Chloride 1,000 ML IVC SCH ×2 (14:15→17:14)
[2016-09-27] MEDS ORDERED: Naloxone 0.4 MG/ML INJ IVP PRN (14:23)
[2016-09-27] MEDS ORDERED: Acetaminophen 325 MG TABLET PO PRN (14:23)
[2016-09-27] MEDS ORDERED: Dextrose Gel 15 GM PO PRN ×2 (14:30)
[2016-09-27] MEDS ORDERED: D5% in Water 1,000 ML IVC PRN (14:30)
--- NOTE | 2016-09-27 14:39 | Internal Med History&Physical ---
Date of Encounter: 09/27/16 Time of Encounter: 13:30 Assessment and Plan (1) Sepsis Current visit: Yes Status: Acute 1 patient presented with abdominal pain nausea vomiting heart rate was greater than 100 white count was 15,000 lactate was 2 creatinines greater than 2. Source appears to be urinary Blood cultures as well as urine cultures were obtained 2 broad-spectrum antibiotic treatment vancomycin cefepime 3 strict intake and output-Perera catheter is maintain urine output greater than 0.05 mL/kg per hour 4 maintain MAP greater than 60 5 continuous cardiac monitoring 6 we will continue with IV fluid at 100 hour Qualifiers: Sepsis type: sepsis due to unspecified organism Qualified Code(s): A41.9 - Sepsis, unspecified organism (2) DKA (diabetic ketoacidoses) Current visit: Yes Status: Acute 1 presently improving. Upon presentation the patient's blood sugar greater than 500 bid hydroxylate 0.31 pH was 7.3 PCO2 is 54 bicarbonate was 26. Anion gap is 10. We will place patient on Accu-Cheks every 4 hours with sliding scale insulin presently blood sugar down around 300 continue to monitor Qualifiers: Diabetes mellitus type: type 2 Diabetes mellitus complication detail: without coma Qualified Code(s): E13.10 - Other specified diabetes mellitus with ketoacidosis without coma (3) BRENDA (acute kidney injury) Current visit: Yes Status: Acute 1 most likely secondary to sepsis. Appears patient's baseline is around less than 1. Continue to monitor creatinine 2 avoid nephrotoxins 3 maintain MAP greater than 60 4 renal dose antibiotics (4) Pyelonephritis, acute Current visit: Yes Status: Acute 1 patient's white count was greater than 15 urinalysis positive for leuk esterase and bacteria and blood CT of abdomen revealed mild inflammatory process. We will continue with antibiotics awaiting cultures 2 monitor intake and output continue IV fluids (5) COPD (chronic obstructive pulmonary disease) Current visit: Yes Status: Acute 1 no exacerbation at this time. We will continue with oxygen and maintain SPO2 greater than 92% Qualifiers: COPD type: unspecified COPD Qualified Code(s): J44.9 - Chronic obstructive pulmonary disease, unspecified (6) HTN (hypertension) Current visit: Yes Status: Acute 1 presently hypotensive we will hold antihypertensives for now resume once back to baseline Qualifiers: Hypertension type: essential hypertension Qualified Code(s): I10 - Essential (primary) hypertension (7) DVT prophylaxis Current visit: Yes Status: Acute 1 heparin Internal Medicine - H&P: HPI Admitted From: Emergency Dept Plans for Post Hospital Care: Home History of present illness: Ms. Carl is a 60 year old female past history of asthma CHF COPD diabetes hypertension. According to patient on Monday she began to experience an onset of right abdominal pain nausea vomiting dry nonproductive cough subjective fever chills, as well as dysuria and frequency. She saw her oncologist on Monday which was a reversely scheduled appointment at that time CT of abdomen and lab work was obtained. She was notified later in the evening to report to the ER for evaluation. According to the ER records on presentation patient's blood pressure was in the 70 systolic she was tachycardic white count was 15.8, glucose was greater than 500 lactate 2.0 [address] revealed U[address] CT of abdomen indicates pyelonephritis. Patient was given aggressive fluid resuscitation, blood and urine cultures obtained given antibiotics. Patient to be transferred to [facility] due to no ICU beds available however at that time. No [facility] beds available. Case discussed with ICU physician per ER physician who advised him to patient's lactate is trending down as well as pressures are stable patient can go to 2 N. patient's been admitted for further workup and evaluation. Presently patient pressures systolic 120 blood sugars 300 afebrile continues to be tachycardic. Patient given broad-spectrum antibiotics, continue with IV fluids, denies any chest pain or shortness of breath this time. Abdomen is soft to palpation in right upper quadrant. I reviewed this case with Dr. Stockton who agrees with plan Past Med Surg Social Fam HX - Past Medical History Medical history: asthma, CHF, COPD, diabetes, hypertension Psychiatric history: no psych history - Past Surgical History Surgical History: - Social History Smoking Status: Former smoker Smokeless Tobacco Status: No Alcohol use: none Drug use: none - Family History Mother Living Status: Still Living Hx Family Endocrine Disorder: Yes (DM) Father Living Status: Still Living Hx Family Respiratory Disorders: Yes (blood clot) Internal Medicine - H&P: Meds Loratadine [Claritin] 10 mg PO DAILY #30 capsule 08/22/16 [Rx] Ranitidine HCl [Zantac] 1 tab PO BID #60 tablet 09/26/16 [Rx] Aspirin 81 mg PO DAILY 09/27/16 [History] Atorvastatin Calcium [Lipitor] 80 mg PO HS 09/27/16 [History] Docusate [Colace] 100 mg PO BID 09/27/16 [History] Insulin Glargine [Lantus] 35 unit SQ HS 09/27/16 [History] Insulin LISPRO [Humalog Kwikpen U-100] 0 unit SQ TID PRN 09/27/16 [History] Losartan Potassium [Cozaar] 50 mg PO DAILY 09/27/16 [History] Metoprolol [Lopressor] 25 mg PO BID 09/27/16 [History] Montelukast [Singulair] 10 mg PO DAILY 09/27/16 [History] Mv-Mn/FA/Vit K/Lycop/Lut/Coq10 [Daily Multivitamin Capsule] 1 each PO DAILY 07/15 [History] Omeprazole [PriLOSEC] 20 mg PO DAILY 09/27/16 [History] Potassium Chloride [K-Tab ER] 20 meq PO DAILY 09/27/16 [History] Torsemide [Demadex] 20 mg PO DAILY 09/27/16 [History] Allergies Penicillins [PCN] Allergy (Verified 09/27/16 13:45) Hives All Systems PM: A 10-system review of systems was performed and is negative for pertinent findings except as documented above in the HPI. - Constitutional Constitutional: fever(s) - Cardiovascular Cardiovascular ROS IM: no chest pain, no diaphoresis, no dyspnea, no lightheadedness, no palpitations, no syncope - Respiratory Respiratory: cough, dyspnea - Gastrointestinal Gastrointestinal: abdominal pain, nausea, vomiting, no diarrhea, no hematemesis , no hematochezia, no melena - Genitourinary Genitourinary: dysuria, urinary frequency - Musculoskeletal Musculoskeletal ROS IM: no numbness, no tingling - Integumentary Integumentary IM: no rash, no unusual bruising - Neurological Neurological ROS: no confusion, no convulsions, no focal weakness, no numbness, no tingling, no tremor(s) - Constitutional Vitals: Temp Pulse Resp BP Pulse Ox 99 F 116 19 117/42 97 09/27/16 14:17 09/27/16 14:17 09/27/16 14:17 09/27/16 14:17 09/27/16 14:17 General appearance: Present: A&O X 3 - Head Head exam: Present: atraumatic, normocephalic - Eye Eye exam: Present: PERRL, conjuntiva pink, sclera anicteric Pupils: Present: PERRL Additional comments: Strabismus - Neck Neck exam general surgery: Present: supple, trachea midline. Absent: lymphadenopathy - Respiratory Respiratory exam: Present: CTAB. Absent: accessory muscle use, rales, rhonchi, wheezes - Cardiovascular Cardiovascular exam: Present: RRR, +S1, +S2. Absent: diastolic murmur, gallop, rubs, systolic murmur - GI/Abdominal GI/Abdominal exam: Present: normal bowel sounds, soft, tenderness, no peritoneal signs. Absent: distended - Extremities Exam Extremities exam: Present: warm, radial pulses palpable and symetrical. Absent : calf tenderness, cyanotic, pedal edema - Neurological Exam Neurological exam: Present: CN II-XII intact, oriented X3, no focal deficits. Absent: pronater drift, facial droop, speech deficit - Skin Skin exam: Present: dry, intact Internal Med - H&P Results - Labs CBC & Chem 7: 09/27/16 06:06 09/27/16 06:06 - Diagnostic Studies Other Images Additional comments: Abdomen/Pelvis CT 09/26/16 21:51 IMPRESSION: 1. Severe fatty infiltration of the liver with multiple areas of hyperdensity and inhomogeneity. This appearance is significantly worse compared with the previous evaluation. Neoplasm should be considered. Areas of liver necrosis should also be considered. 2. No evidence of acute gallbladder or biliary disease. 3. Mild inflammatory changes around the left kidney although no obstructive uropathy noted. 4. Diverticulosis but no acute diverticulitis. Normal appendix. RECOMMENDATIONS: Liver MRI for further evaluation for the possibility of neoplasm. D/ / 09/26/2016 23:16:54 Margie Camargo MD / Shari Ellsworth Interpreting Provider: Margie Camargo MD Chest X-Ray 09/27/16 02:54 IMPRESSION: Central line in adequate position with the tip at the SVC/right atrial junction. No obvious complications. D/ / 09/27/2016 06:50:30 Margie Camargo MD / tkyer Interpreting Provider: Margie Camargo MD
[2016-09-27] MEDS: Cefepime HCl 2,000 MG in D5% in Water (Mini-Bag+) 100 ML IVPB SCH (15:37)
[2016-09-27] MEDS ORDERED: Insulin LISPRO 300 UNITS/3 ML VIAL SQ SCH (16:00)
[2016-09-27] MEDS: Insulin Human Regular 100 UNIT in 0.9 % Sodium Chloride 100 ML IVC SCH ×2 (17:45→23:25)
[2016-09-27 17:46] LABS: Calcium 7.6 mg/dL (8.6-10.8); Potassium 4.2 mEq/L (3.5-4.5)
[2016-09-27] MEDS: *HR* Heparin 5,000 UNIT/ML VIAL SQ SCH (17:56)
[2016-09-27] MEDS ORDERED: Ipratropium/Albuterol Neb 3 ML IH PRN (20:01)
[2016-09-27] MEDS ORDERED: 0.9 % Sodium Chloride w KCl 20 MEQ/1,000 ML MLS IVC ONE (20:22)
[2016-09-27] MEDS: 0.9 % Sodium Chloride w KCl 20 MEQ/1,000 ML MLS IVC SCH (20:30)
[2016-09-27 21:38] LABS: Basophils % 0.3 %; Eosinophils % 0.2 %; Hemoglobin 10.8 g/dL (11.5-15.4); Immature Granulocytes % 0.7 % (0-4); Immature Platelets 10.6 % (1.1-6.1); Lymphocytes # 2.2 K/mcL (0.6-4.6); Lymphocytes % 16.8 %; Mean Corpuscular HGB Conc 30.9 g/dL (31.6-35.5); Mean Corpuscular Volume 71.4 fL (83.0-100.0); Monocytes # 1.3 K/mcL (0.0-1.3); Monocytes % 10.1 %; Platelet Count 113 K/mcL (140-400); Red Cell Distribution Width 15.8 % (11.5-14.5); Segmented Neutrophils % 71.9 %
[2016-09-27 21:44] LABS: Calcium 7.6 mg/dL (8.6-10.8); Magnesium 1.7 mg/dL (1.6-2.6); Neutrophils # 9.4 K/mcL (1.6-8.9); Phosphorous 2.1 mg/dL (2.3-4.7); Potassium 3.8 mEq/L (3.5-4.5)
[2016-09-27 22:02] LABS: Dohle Bodies Present (Not Present)
[2016-09-28 01:29] LABS: Phosphorous 2.4 mg/dL (2.3-4.7); Potassium 3.7 mEq/L (3.5-4.5)
[2016-09-28] MEDS: 0.9 % Sodium Chloride w KCl 20 MEQ/1,000 ML MLS IVC SCH ×2 (04:27→11:34)
[2016-09-28 04:39] LABS: Hemoglobin 10.6 g/dL (11.5-15.4)
[2016-09-28 04:41] LABS: Hematocrit 34.6 % (35.3-44.9); Immature Platelets 10.5 % (1.1-6.1); Mean Corpuscular HGB Conc 30.6 g/dL (31.6-35.5); Mean Corpuscular Hemoglobin 21.9 pg (28.0-33.3); Mean Corpuscular Volume 71.6 fL (83.0-100.0); Platelet Count 120 K/mcL (140-400); Red Blood Count 4.83 M/mcL (3.82-4.97)
[2016-09-28 04:49] LABS: Calcium 7.7 mg/dL (8.6-10.8); Magnesium 1.6 mg/dL (1.6-2.6); Phosphorous 2.5 mg/dL (2.3-4.7); Potassium 3.9 mEq/L (3.5-4.5)
[2016-09-28 05:22] LABS: Basophils # 0.3 K/mcL (0.0-0.2); Eosinophils # 0.3 K/mcL (0.0-0.6); Lymphocytes # 1.8 K/mcL (0.6-4.6); Monocytes # 1.3 K/mcL (0.0-1.3); Neutrophils # 9.1 K/mcL (1.6-8.9); Platelet Estimate Slight Decrease (Normal)
[2016-09-28] MEDS ORDERED: *HR* Enoxaparin 40 MG/0.4 ML SYRINGE SQ SCH (06:00)
[2016-09-28] MEDS: *HR* Heparin 5,000 UNIT/ML VIAL SQ SCH ×2 (06:20→16:44)
[2016-09-28] MEDS: Cefepime HCl 2,000 MG in D5% in Water (Mini-Bag+) 100 ML IVPB SCH ×2 (08:51→11:35)
[2016-09-28] MEDS: Aspirin 81 MG TAB.CHEW PO SCH (08:51)
[2016-09-28] MEDS: Insulin Human Regular 100 UNIT in 0.9 % Sodium Chloride 100 ML IVC SCH (09:07)
[2016-09-28] MEDS: Vancomycin 1,500 MG in D5% in Water 250 ML IVPB SCH (11:39)
--- NOTE | 2016-09-28 12:16 | Gastroenterology Consult Note ---
<Tyler Wade - Last Filed: 09/28/16 12:09> Date of Encounter: 09/28/16 Time of Encounter: 11:30 - Assessment and plan (1) Liver lesion Current Visit: Yes Status: Acute Assessment and plan: CT A/P with severe fatty infiltration, multiple areas of hypodensity and inhomogeneity concerning for neoplasm or necrosis. Check MRI to better evaluate liver lesion. Consider biopsy of liver lesion. Continue to monitor hepatic panel. (2) Sepsis Current Visit: Yes Status: Acute Assessment and plan: Continue IV antibiotics and IV fluids. Qualifiers: Sepsis type: sepsis due to unspecified organism Qualified Code(s): A41.9 - Sepsis, unspecified organism (3) DKA (diabetic ketoacidoses) Current Visit: Yes Status: Acute Assessment and plan: Management per primary team. Qualifiers: Diabetes mellitus type: type 2 Diabetes mellitus complication detail: without coma Qualified Code(s): E13.10 - Other specified diabetes mellitus with ketoacidosis without coma (4) UTI (urinary tract infection) Current Visit: Yes Status: Acute Assessment and plan: Management per primary team. Qualifiers: Qualified Code(s): N39.0 - Urinary tract infection, site not specified (5) Morbid obesity Current Visit: Yes Status: Acute Qualifiers: Obesity type: due to excess calories Qualified Code(s): E66.01 - Morbid ( severe) obesity due to excess calories (6) Pyelonephritis, acute Current Visit: Yes Status: Acute Assessment and plan: Management per primary team. - Time Spent With Patient Total time spent is greater than 50% in coordination of care (as documented) at patient's floor/unit and/or counseling patient: GI History of Present Illness - Data of Consult Patient: new to practice Consult date: 09/28/16 Requesting Physician: Isaiah Hsieh MD - Consult Narrative Reason for consult: Liver lesion History of present illness: Ms. Carl is a 60 year old female with PMHx of asthma, CHF, COPD, and HTN who was admitted with sepsis, DKA, BRENDA, and acute pyelonephritis. On arrival to the ED her SBP was 70, she was tachycardic, with WBC of 15.8, glucose over 500, and lactate 2. Blood and urine cultures pending. Patient was started on vancomycin and cefepime. She was to be transferred to [facility] is no ICU beds were available here, but no ICU beds were available at [facility] either. CT A/P with severe fatty infiltration, multiple areas of hypodensity and inhomogeneity concerning for neoplasm or necrosis. We were consulted to evaluate her liver lesion. Procedures: EGD 03/16/2009 Dr. Hinojosa: Minimal gastritis Colonoscopy 03/13/2009 Dr. Hinojosa: Serrated adenoma in the transverse colon, 2 hyperplastic polyps. NSAIDs: ASA Anticoagulation: None Past Med Surg Social Fam HX - Past Medical History Medical history: asthma, CHF, COPD, diabetes, hypertension Psychiatric history: no psych history - Past Surgical History Surgical History: - Social History Smoking Status: Former smoker Smokeless Tobacco Status: No Alcohol use: none Drug use: none - Family History Mother Living Status: Still Living Hx Family Endocrine Disorder: Yes (DM) Father Living Status: Still Living Hx Family Respiratory Disorders: Yes (blood clot) - Gastrointestinal Gastrointestinal: Present: as per HPI - Constitutional Constitutional: as per HPI - EENT Eyes: as per HPI Ears: Present: as per HPI Nose, mouth and throat: Present: as per HPI - Cardiovascular Cardiovascular ROS: Present: as per HPI - Respiratory Respiratory IM: Present: as per HPI - Genitourinary Genitourinary: Absent: change in color, Urinary frequency - Neurological ROS Neurological GI: Present: as per HPI - Hematologic/Lymphatic Hematologic/Lymphatic pediatric: Present: as per HPI - Musculoskeletal Musculoskeletal ROS GI: Present: as per HPI - Integumentary Integumentary GI: Present: as per HPI - Psychiatric ROS Psychiatric GI: Present: as per HPI - Endocrine Endocrine IM: Present: as per HPI - Constitutional Vitals: Temp Pulse Resp BP Pulse Ox 98.4 F 100 18 110/60 96 09/28/16 11:07 09/28/16 11:07 09/28/16 11:07 09/28/16 11:07 09/28/16 11:07 General appearance: Present: cooperative, A&O X 3, no acute distress, answers questions appropriately - Head Head exam: Present: atraumatic, normocephalic - Eye Eye exam: Present: normal appearance, sclera anicteric - ENT ENT exam: Present: mucous membranes moist - Neck Neck exam general surgery: Present: normal inspection, trachea midline - Respiratory Respiratory exam: Present: CTAB. Absent: rales, rhonchi, wheezes - Cardiovascular Cardiovascular exam: Present: RRR, +S1, +S2 - GI/Abdominal GI/Abdominal exam: Present: soft, tenderness (generalized), no peritoneal signs. Absent: distended, guarding, hernia Additional comments: morbid obesity - Rectal Rectal exam: Present: deferred - Extremities Exam Extremities exam: Present: warm - Neurological Exam Neurological exam: Present: no focal deficits - Psychiatric Psychiatric exam: Present: normal affect, normal mood - Skin Skin exam: Present: dry, intact, normal color, warm Results - Labs CBC & Chem 7: 09/28/16 04:15 09/28/16 04:15 Labs: Last Result Calcium 7.7 mg/dL (8.6-10.8) L 09/28/16 04:15 C-Reactive Protein 253 mg/L (Less than 5) H 09/27/16 21:20 Entire Visit Hgb 10.6 g/dL (11.5-15.4) L 09/28/16 04:15 Hct 34.6 % (35.3-44.9) L 09/28/16 04:15 Total Bilirubin 1.6 mg/dL (0.2-1.2) H 09/26/16 23:45 AST 28 Units/L (5-34) 09/26/16 23:45 ALT 43 Units/L (0-55) 09/26/16 23:45 - ABG ABG results: ABG ABG pH 7.42 pH Units (7.32-7.45) 09/26/16 22:20 ABG pCO2 42 mmHg (35-45) 09/26/16 22:20 ABG pO2 49 mmHg (85-104) L* 09/26/16 22:20 ABG O2 Saturation 85 % (95-98) L 09/26/16 22:20 Consult Discharge Plan - Plan Referrals: Yeyo Faye DO [Resident] - (SENT WEB REQUEST FOR APPOINMENT ON 09-27 @ 3402) <Lety Richmond - Last Filed: 09/28/16 18:00> Date of Encounter: 09/28/16 Time of Encounter: 13:00 - Time Spent With Patient Total time spent is greater than 50% in coordination of care (as documented) at patient's floor/unit and/or counseling patient: GI History of Present Illness - Data of Consult Requesting Physician: Isaiah Hsieh MD - Consult Narrative History of present illness: Ms. Carl is a 60 year old female - Constitutional Vitals: Temp Pulse Resp BP Pulse Ox 98.3 F 100 18 119/86 97 09/28/16 16:33 09/28/16 16:33 09/28/16 16:33 09/28/16 16:33 09/28/16 16:42 Results - Labs CBC & Chem 7: 09/28/16 04:15 09/28/16 04:15 Labs: Last Result Calcium 7.7 mg/dL (8.6-10.8) L 09/28/16 04:15 C-Reactive Protein 253 mg/L (Less than 5) H 09/27/16 21:20 Entire Visit Hgb 10.6 g/dL (11.5-15.4) L 09/28/16 04:15 Hct 34.6 % (35.3-44.9) L 09/28/16 04:15 Total Bilirubin 1.6 mg/dL (0.2-1.2) H 09/26/16 23:45 AST 28 Units/L (5-34) 09/26/16 23:45 ALT 43 Units/L (0-55) 09/26/16 23:45 - ABG ABG results: ABG ABG pH 7.42 pH Units (7.32-7.45) 09/26/16 22:20 ABG pCO2 42 mmHg (35-45) 09/26/16 22:20 ABG pO2 49 mmHg (85-104) L* 09/26/16 22:20 ABG O2 Saturation 85 % (95-98) L 09/26/16 22:20 - Attending Attestation I examined this patient and my medical decision-making was reviewed with the ROLL UP MACHINE OPERATOR/PA/Advanced Practice Nurse/Resident Physician. I agree with the documented findings, disposition and treatment plan as described except to the extent set forth below. Patient seen CT reviewed with radiology lesion are concerning for abscesses versus metastases. Need MRI and then possible biopsy
--- NOTE | 2016-09-28 12:18 | Internal Med Progress Note ---
Date of Encounter: 09/28/16 Time of Encounter: 12:18 - Assessment and plan (1) Hyperglycemia Current Visit: Yes Status: Acute Assessment and plan: Secondary to uncontrolled DM FS have been acceptable D/C insulin drip and bridge ADA diet A1C 7.0 01/2016, repeat a.m Resume basal, prandial and correction dose insulin (2) DKA (diabetic ketoacidoses) Current Visit: Yes Status: Ruled-out Assessment and plan: Patient did not have DKA There is no diagnosis of DKA with a PH of 7.4 She did have severe hyperglycemia , however her ABG does not agree with DKA Rest of management as in hyperglycemia above Qualifiers: Diabetes mellitus type: type 2 Diabetes mellitus complication detail: without coma Qualified Code(s): E13.10 - Other specified diabetes mellitus with ketoacidosis without coma (3) Sepsis Current Visit: Yes Status: Acute Assessment and plan: Patient presented with tachycardia, vomiting, RUQ pain, evidence of pyelonephritis on CT, elevated lactate and low blood pressure She was started o cefepime and vanco pending culture results Urine culture grossly mixed Leukocytosis has improved, lactate has improved BRENDA is improved Urine culture has been sent again today Continue current antibiotics Follow blood cultures High risk patient due to Vancomycin use Qualifiers: Sepsis type: sepsis due to unspecified organism Qualified Code(s): A41.9 - Sepsis, unspecified organism (4) Pyelonephritis, acute Current Visit: Yes Status: Acute Assessment and plan: As above CT scan with mild inflammatory process, no stones or hydronephrosis (5) COPD (chronic obstructive pulmonary disease) Current Visit: Yes Status: Chronic Assessment and plan: Not in exacerbation Continue to monitor closely Duonebs prn Qualifiers: COPD type: unspecified COPD Qualified Code(s): J44.9 - Chronic obstructive pulmonary disease, unspecified (6) HTN (hypertension) Current Visit: Yes Status: Chronic Assessment and plan: Low normal BPs on admission hence meds were held Restart home BB Continue to hold diuretic and ARB Qualifiers: Hypertension type: essential hypertension Qualified Code(s): I10 - Essential (primary) hypertension (7) BRENDA (acute kidney injury) Current Visit: Yes Status: Acute Assessment and plan: Improving D/C IVF Encourage liberal fluid intake (8) Morbid obesity Current Visit: Yes Status: Chronic Assessment and plan: BMI 67.8 Lifestyle modification Qualifiers: Obesity type: due to excess calories Qualified Code(s): E66.01 - Morbid ( severe) obesity due to excess calories (9) Liver lesion Current Visit: Yes Status: Acute Assessment and plan: Follow MRI GI on board - Subjective Interval history: Seen and evaluated at bedside patient beinf managed for hyperglycemia, sepsis, BRENDA, pyelonephritis, new liver lesions She has a PMH of DM, HTN, Morbid Obesity, CHFpEF FS have improved BRENDA and leuocytosis improved Urine culture grossly mixed, will resend urine culture - Constitutional Vitals: Temp Pulse Resp BP Pulse Ox 98.4 F 100 18 110/60 96 09/28/16 11:07 09/28/16 11:07 09/28/16 11:07 09/28/16 11:07 09/28/16 11:07 General appearance: Present: A&O X 3 Exam: VSS, Gen: Morbidly obese, Not in any form of distress, speaks full sentences, Neuro: AAOX3, moves all limbs spontaneously, no focal deficits, no speech abnormality or facial asymmetry HEENT: Moist mucosa, no cyanosis, BARNEY Chest: Clear to auscultation bilaterally, no wheezes, no rhonchi, no stridor. Heart: S1, S2, no m/g/r Abdomen: Soft, vague RUQ tenderness, no palpably enlarged organs Extremities: Chronic venous stasis changes Internal Medicine: Result - Labs CBC & Chem 7: 09/28/16 04:15 09/28/16 04:15 Labs: Short CBC 09/27/16 09/28/16 Range/Units 21:20 04:15 WBC 13.0 H 12.6 H (4.3-11.1) K/mcL Hgb 10.8 L 10.6 L (11.5-15.4) g/dL Hct 35.0 L 34.6 L (35.3-44.9) % Plt Count 113 L 120 L (140-400) K/mcL Neutrophils # 9.4 H 9.1 H (1.6-8.9) K/mcL BMP 09/27/16 09/27/16 09/28/16 17:25 21:20 01:00 Sodium 131 L 132 L Potassium 4.2 3.8 3.7 Chloride 95 L 98 Carbon Dioxide 26 28 BUN 24 H 24 H Creatinine 2.19 H 2.07 H Glucose 572 H* 412 H Calcium 7.6 L 7.6 L 09/28/16 04:15 Sodium 137 Potassium 3.9 Chloride 102 Carbon Dioxide 29 BUN 24 H Creatinine 1.61 H Glucose 162 H Calcium 7.7 L - ABG Interpretation ABG results: ABG ABG pH 7.42 pH Units (7.32-7.45) 09/26/16 22:20 ABG pCO2 42 mmHg (35-45) 09/26/16 22:20 ABG pO2 49 mmHg (85-104) L* 09/26/16 22:20 ABG O2 Saturation 85 % (95-98) L 09/26/16 22:20 Consult Discharge Plan - Plan Referrals: Yeyo Faye DO [Resident] - (SENT WEB REQUEST FOR APPOINMENT ON 09-27 @ 1909)
[2016-09-28] MEDS ORDERED: D5% in Water 1,000 ML IVC PRN (12:41)
[2016-09-28] MEDS ORDERED: *HR* Dextrose 50 % in Water (Syg) 50 ML SYRINGE IVP PRN (12:41)
[2016-09-28] MEDS ORDERED: Dextrose Gel 15 GM PO PRN ×2 (12:41)
[2016-09-28] MEDS ORDERED: Insulin DETEMIR 100 UNIT/ML X5UNITS SQ ONE (12:43)
[2016-09-28] MEDS: Insulin LISPRO 300 UNITS/3 ML VIAL SQ SCH ×3 (16:44→21:50)
[2016-09-28] MEDS: Ondansetron 4 MG/2 ML VIAL IVP PRN (20:08)
[2016-09-28] MEDS ORDERED: Famotidine 20 MG TABLET PO SCH (21:00)
[2016-09-28] MEDS: Insulin DETEMIR 100 UNIT/ML X5UNITS SQ SCH (21:49)
[2016-09-29] MEDS: Cefepime HCl 2,000 MG in D5% in Water (Mini-Bag+) 100 ML IVPB SCH ×2 (00:38→11:55)
[2016-09-29 04:57] LABS: Hemoglobin 10.8 g/dL (11.5-15.4)
[2016-09-29 04:59] LABS: Basophils # 0.1 K/mcL (0.0-0.2); Basophils % 0.5 %; Eosinophils # 0.3 K/mcL (0.0-0.6); Eosinophils % 2.9 %; Hematocrit 35.5 % (35.3-44.9); Immature Granulocytes % 0.8 % (0-4); Immature Platelets 11.8 % (1.1-6.1); Lymphocytes # 2.1 K/mcL (0.6-4.6); Lymphocytes % 21.4 %; Mean Corpuscular HGB Conc 30.4 g/dL (31.6-35.5); Mean Corpuscular Hemoglobin 21.8 pg (28.0-33.3); Mean Corpuscular Volume 71.6 fL (83.0-100.0); Monocytes % 10.5 %; Neutrophils # 6.3 K/mcL (1.6-8.9); Platelet Count 136 K/mcL (140-400); Red Blood Count 4.96 M/mcL (3.82-4.97); Red Cell Distribution Width 16.2 % (11.5-14.5); Segmented Neutrophils % 63.9 %
[2016-09-29 05:04] LABS: Hemoglobin A1C 11.3 %
[2016-09-29 05:20] LABS: Calcium 8.1 mg/dL (8.6-10.8); Potassium 4.4 mEq/L (3.5-4.5)
[2016-09-29] MEDS: *HR* Heparin 5,000 UNIT/ML VIAL SQ SCH ×2 (06:35→17:07)
[2016-09-29 06:37] LABS: Anisocytosis 1+ (Not Present); Platelet Estimate Slight Decrease (Normal); Polychromasia 1+ (Not Present)
[2016-09-29] MEDS: Aspirin 81 MG TAB.CHEW PO SCH (09:10)
[2016-09-29] MEDS: *HR* HYDROcodone/Acet 5/325 mg TABLET PO PRN (09:11)
[2016-09-29] MEDS: Multivit/Ca/Min/Fe/FA 1 TAB TABLET PO SCH (09:12)
[2016-09-29] MEDS: Insulin LISPRO 300 UNITS/3 ML VIAL SQ SCH ×7 (09:14→21:22)
[2016-09-29] MEDS: Ondansetron 4 MG/2 ML VIAL IVP PRN (11:32)
[2016-09-29] MEDS: Vancomycin 1,500 MG in D5% in Water 250 ML IVPB SCH (11:57)
--- NOTE | 2016-09-29 12:04 | Internal Med Progress Note ---
Date of Encounter: 09/29/16 Time of Encounter: 12:04 - Assessment and plan (1) Hyperglycemia Current Visit: Yes Status: Acute Assessment and plan: Improved Secondary to uncontrolled DM FS have been acceptable Adjust levemir and lispro ADA diet A1C 11.3 family living educator to see (2) DKA (diabetic ketoacidoses) Current Visit: Yes Status: Ruled-out Assessment and plan: Patient did not have DKA There is no diagnosis of DKA with a PH of 7.4 She did have severe hyperglycemia , however her ABG does not agree with DKA Rest of management as in hyperglycemia above Qualifiers: Diabetes mellitus type: type 2 Diabetes mellitus complication detail: without coma Qualified Code(s): E13.10 - Other specified diabetes mellitus with ketoacidosis without coma (3) Sepsis Current Visit: Yes Status: Acute Assessment and plan: Patient presented with tachycardia, vomiting, RUQ pain, evidence of pyelonephritis on CT, elevated lactate and low blood pressure She was started on cefepime and vanco pending culture results Urine culture 09/26 grossly mixed Blood culture 09/27: prelim negative Repeat urine culture: No growth, final Leukocytosis has improved, lactate has improved BRENDA is improved D/C vancomycin and cefepime Change to Omnicef po bid D/C Perera catheter D/C CVC Qualifiers: Sepsis type: sepsis due to unspecified organism Qualified Code(s): A41.9 - Sepsis, unspecified organism (4) Pyelonephritis, acute Current Visit: Yes Status: Acute Assessment and plan: As above CT scan with mild inflammatory process, no stones or hydronephrosis (5) COPD (chronic obstructive pulmonary disease) Current Visit: Yes Status: Chronic Assessment and plan: Not in exacerbation Continue to monitor closely Duonebs prn Qualifiers: COPD type: unspecified COPD Qualified Code(s): J44.9 - Chronic obstructive pulmonary disease, unspecified (6) HTN (hypertension) Current Visit: Yes Status: Chronic Assessment and plan: Low normal BPs on admission hence meds were held Restart home BB Continue to hold diuretic and ARB due to BRENDA Qualifiers: Hypertension type: essential hypertension Qualified Code(s): I10 - Essential (primary) hypertension (7) BRENDA (acute kidney injury) Current Visit: Yes Status: Acute Assessment and plan: Improving D/C IVF Encourage liberal fluid intake (8) Morbid obesity Current Visit: Yes Status: Chronic Assessment and plan: BMI 67.8 Lifestyle modification Qualifiers: Obesity type: due to excess calories Qualified Code(s): E66.01 - Morbid ( severe) obesity due to excess calories (9) Liver lesion Current Visit: Yes Status: Acute Assessment and plan: MRI shows hepatic steatosis Patient is already on high intensity statin LFT WNL - Subjective Interval history: Seen and evaluated at bedside patient being managed for hyperglycemia, sepsis, BRENDA, pyelonephritis, new liver lesions She has a PMH of DM, HTN, Morbid Obesity, CHFpEF FS have improved BRENDA has improved remarkably and leukocytosis has resolved Abdomen MRI today showed hepatic steatosis, no liver masses Repeat Urine culture final, no growth - Constitutional Vitals: Temp Pulse Resp BP Pulse Ox 98.2 F 84 22 111/65 97 09/29/16 11:58 09/29/16 11:58 09/29/16 11:58 09/29/16 11:58 09/29/16 11:58 VSS, Gen: Morbidly obese, Not in any form of distress, speaks full sentences, Hirsuit Neuro: AAOX3, moves all limbs spontaneously, no focal deficits, no speech abnormality or facial asymmetry HEENT: Moist mucosa, no cyanosis, BARNEY Chest: Clear to auscultation bilaterally, no wheezes, no rhonchi, no stridor. Heart: S1, S2, no m/g/r Abdomen: Soft, not tender, no palpably enlarged organs Extremities: Chronic venous stasis changes General appearance: Present: A&O X 3 Internal Medicine: Result - Labs CBC & Chem 7: 09/29/16 03:55 09/29/16 03:55 Labs: Short CBC 09/29/16 Range/Units 03:55 WBC 9.9 (4.3-11.1) K/mcL Hgb 10.8 L (11.5-15.4) g/dL Hct 35.5 (35.3-44.9) % Plt Count 136 L (140-400) K/mcL Neutrophils # 6.3 (1.6-8.9) K/mcL BMP 09/29/16 03:55 Sodium 136 Potassium 4.4 Chloride 103 Carbon Dioxide 25 BUN 18 Creatinine 1.17 H Glucose 292 H Calcium 8.1 L - ABG Interpretation ABG results: ABG ABG pH 7.42 pH Units (7.32-7.45) 09/26/16 22:20 ABG pCO2 42 mmHg (35-45) 09/26/16 22:20 ABG pO2 49 mmHg (85-104) L* 09/26/16 22:20 ABG O2 Saturation 85 % (95-98) L 09/26/16 22:20 - Impressions Impressions Abdomen MRI 09/29/16 09:54 IMPRESSION: 1. Extremely suboptimal examination due to patient motion artifact and incomplete examination. 2. Heterogeneous, patchy hepatic steatosis, likely corresponding to the CT abnormality. No definite focal lesions are identified in the liver. Repeat examination may be obtained when the patient is able. D/ / Stephie Kong MD / Stephie Kong MD Interpreting Provider: Stephie Kong MD Consult Discharge Plan - Plan Referrals: Yessy Norton DO [Resident] - 10/05/16 10:20 am
[2016-09-29] MEDS ORDERED: Aminoglycoside Consult 1 EACH MC ONE (13:40)
[2016-09-29] MEDS ORDERED: Famotidine 20 MG TABLET PO SCH (13:45)
[2016-09-29] MEDS: Cefdinir 300 MG CAPSULE PO SCH (21:20)
[2016-09-29] MEDS: Insulin DETEMIR 100 UNIT/ML X5UNITS SQ SCH (21:20)
[2016-09-30 04:47] LABS: BUN/Creatinine Ratio 12 (6-26); Blood Urea Nitrogen 13 mg/dL (7-20); Carbon Dioxide 27 mEq/L (19-29); Chloride 103 mEq/L (98-109); Potassium 4.3 mEq/L (3.5-4.5); Sodium 137 mEq/L (136-145)
[2016-09-30 04:48] LABS: Glucose 307 mg/dL (70-99); Osmolality,Calculated 296 (280-300); eGFR For African Americans > 60 (> 60); eGFR For Non-African Americans 50 (> 60)
[2016-09-30] MEDS: *HR* Heparin 5,000 UNIT/ML VIAL SQ SCH (05:59)
[2016-09-30] MEDS: Insulin LISPRO 300 UNITS/3 ML VIAL SQ SCH ×4 (08:57→12:24)
[2016-09-30] MEDS: Aspirin 81 MG TAB.CHEW PO SCH (08:59)
[2016-09-30] MEDS: Multivit/Ca/Min/Fe/FA 1 TAB TABLET PO SCH (08:59)
[2016-09-30] MEDS: Cefdinir 300 MG CAPSULE PO SCH (08:59)
[2016-09-30] MEDS: *HR* HYDROcodone/Acet 5/325 mg TABLET PO PRN (09:07)
--- NOTE | 2016-09-30 10:49 | Discharge Summary ---
Date of Encounter: 09/30/16 Time of Encounter: 10:49 - Discharge Diagnosis (1) Hyperglycemia Priority: Primary Status: Resolved (2) DKA (diabetic ketoacidoses) Priority: Primary Status: Ruled-out Qualifiers: Diabetes mellitus type: type 2 Diabetes mellitus complication detail: without coma Qualified Code(s): E13.10 - Other specified diabetes mellitus with ketoacidosis without coma (3) Sepsis Priority: Primary Status: Resolved Qualifiers: Sepsis type: sepsis due to unspecified organism Qualified Code(s): A41.9 - Sepsis, unspecified organism (4) Pyelonephritis, acute Priority: Primary Status: Acute (5) COPD (chronic obstructive pulmonary disease) Priority: Secondary Status: Chronic Qualifiers: COPD type: unspecified COPD Qualified Code(s): J44.9 - Chronic obstructive pulmonary disease, unspecified (6) HTN (hypertension) Priority: Secondary Status: Chronic Qualifiers: Hypertension type: essential hypertension Qualified Code(s): I10 - Essential (primary) hypertension (7) BRENDA (acute kidney injury) Priority: Primary Status: Acute (8) Morbid obesity Priority: Secondary Status: Chronic Qualifiers: Obesity type: due to excess calories Qualified Code(s): E66.01 - Morbid ( severe) obesity due to excess calories (9) Liver lesion Priority: Primary Status: Chronic - Discharge Medications Prescriptions: Cefdinir [Omnicef] 300 mg PO BID #8 capsule Home Medications: Loratadine [Claritin] 10 mg PO DAILY #30 capsule 08/22/16 [Rx] Ranitidine HCl [Zantac] 1 tab PO BID #60 tablet 09/26/16 [Rx] Aspirin 81 mg PO DAILY 09/27/16 [History] Atorvastatin Calcium [Lipitor] 80 mg PO HS 09/27/16 [History] Docusate [Colace] 100 mg PO BID 09/27/16 [History] Insulin Glargine [Lantus] 35 unit SQ HS 09/27/16 [History] Insulin LISPRO [Humalog Kwikpen U-100] 0 unit SQ TID PRN 09/27/16 [History] Losartan Potassium [Cozaar] 50 mg PO DAILY 09/27/16 [History] Metoprolol [Lopressor] 25 mg PO BID 09/27/16 [History] Montelukast [Singulair] 10 mg PO DAILY 09/27/16 [History] Mv-Mn/FA/Vit K/Lycop/Lut/Coq10 [Daily Multivitamin Capsule] 1 each PO DAILY 07/15 [History] Omeprazole [PriLOSEC] 20 mg PO DAILY 09/27/16 [History] Cefdinir [Omnicef] 300 mg PO BID #8 capsule 09/30/16 [Rx] Allergies/Adverse Reactions: Allergies Penicillins [PCN] Allergy (Verified 09/27/16 13:45) Hives Procedures/tests Complete & Pending: Procedures Performed prior 72 hours Category Date Time Status MR abdomen wo con [MR] Routine MRI 09/29/16 09:54 Completed Date of admission: 09/27/16 15:05 Primary care physician: PCP NO Consults: 09/27/16 15:45 Consult to Superintendent Division [CONS] Routine Reason for SW Consult: PT HAS [facility] HOME OXYGEN 09/27/16 17:15 Consult to Gastroenterology [CONS] Routine Consulting Provider: Gastroenterology Marita Reason for Consult: liver lesion Call Completed: Yes 09/28/16 13:24 Consult to Health Service Worker [CONS] Routine Comment: Reason for Consult: DKA 09/29/16 12:09 PT [Consult to Physical Therapy] [CONS] Routine Comment: Evaluate, develop and implement POC Reason for Consult: Evaluate for gait aid 09/29/16 13:18 Consult to Occupational Therapy [CONS] Routine Comment: Evaluate, develop and implement POC Reason for Consult: has HH 09/29/16 14:23 Consult to Invasive Line Access Team [CONS] Routine Reason for Consult: limited access Line Type: EPIV Discharging clinician: Isaiah Hsieh Anticipated date of discharge: 09/30/16 - Patient Status Disposition: Home Health Service Condition: Fair Functional capacity at discharge: uses cane/walker Overall status at discharge: patient is progressing back to baseline - Discharge Instructions Instructions: Urinary Tract Infection in Women (DC), Chronic Obstructive Pulmonary Disease (DC), Sepsis (DC), Chronic Hypertension (DC) Follow Up With: Yessy Norton DO [Resident] - 10/05/16 10:20 am - Diet and Activity Activity: resume usual activities as tolerated Diet: diabetic diet, low fat, low cholesterol, low salt diet Interval History: See below Hospital course: Ms. Carl is a 60 year old female admitted for management of hyperglycemia , BREDNA and sepsis secondary to pyelonephritis. She was started on insulin drip for hyperglycemia, work up revealed A1C >11, Leukocytosis with left shift and BRENDA, UA with UTI. Abd CT revealed mild L pyelonephritis without hydronephrosis or nephrolithiasis, liver with hepatic steatosis Patient's cultures have been negative till date and she has received 3 days of intravenous antibiotics, she is discharged to complete at least 7 days of antibiotics She was seen and educated by life educator, she is non-compliant with her diet, fingersticks measurement or insulin Her BRENDA resolved with IVF hydration Torsamide and potassium replacement was held throughut the admission Patient educated on compliance with diabetes management KIdney function has improved significantly. She is encouraged to continue liberal fluid intake Leukocytosis and sepsis has resolved She is educated on need to follow up with PCP within one week to check chemistry before resumption of diuretics She verbalized understanding - Time Spent with Patient Total time spent providing and/or coordinating discharge services: Less than 30 minutes - Constitutional Vitals: Temp Pulse Resp BP Pulse Ox 98.2 F 85 19 126/67 97 09/30/16 07:55 09/30/16 09:14 09/30/16 07:55 09/30/16 07:55 09/30/16 09:14 General appearance: Present: A&O X 3, morbidly obese Exam: VSS, Gen: Morbidly obese, Not in any form of distress, speaks full sentences, Hirsuit Neuro: AAOX3, moves all limbs spontaneously, no focal deficits, no speech abnormality or facial asymmetry HEENT: Moist mucosa, no cyanosis, BARNEY Chest: Clear to auscultation bilaterally, no wheezes, no rhonchi, no stridor. Heart: S1, S2, no m/g/r Abdomen: Soft, not tender, no palpably enlarged organs Extremities: Chronic venous stasis changes
--- NOTE | 2016-09-30 10:49 | Physician Discharge Referral ---
Home Health/Hosp Referral Info Transfer to: Home Health Attending Provider: Мария Provider in Charge Post Discharge: PCP - Diagnosis (1) Hyperglycemia Priority: Primary Status: Resolved (2) DKA (diabetic ketoacidoses) Priority: Primary Status: Ruled-out (3) Sepsis Priority: Primary Status: Resolved (4) Pyelonephritis, acute Priority: Primary Status: Acute (5) COPD (chronic obstructive pulmonary disease) Priority: Secondary Status: Chronic (6) HTN (hypertension) Priority: Secondary Status: Chronic (7) BRENDA (acute kidney injury) Priority: Primary Status: Acute (8) Morbid obesity Priority: Secondary Status: Chronic (9) Liver lesion Priority: Secondary Status: Chronic - Respiratory Orders Smoking Cessation: Smoking cessation has been advised. For more information, call the [employer] Free Tobacco Quit Line at 4-963-HNOC-NOW. - Diet/Nutrition Diet/Nutrition Orders: Cardiac, No Concentrated Sweets - Activity Activity Orders: Up ad raheel - Services Needed Following services are medically necessary services: Nursing, Home Health Aide, Physical Therapy, Occupational Therapy - Transfer Medications Prescriptions: Cefdinir [Omnicef] 300 mg PO BID #8 capsule Home Medications: Loratadine [Claritin] 10 mg PO DAILY #30 capsule 08/22/16 [Rx] Ranitidine HCl [Zantac] 1 tab PO BID #60 tablet 09/26/16 [Rx] Aspirin 81 mg PO DAILY 09/27/16 [History] Atorvastatin Calcium [Lipitor] 80 mg PO HS 09/27/16 [History] Docusate [Colace] 100 mg PO BID 09/27/16 [History] Insulin Glargine [Lantus] 35 unit SQ HS 09/27/16 [History] Insulin LISPRO [Humalog Kwikpen U-100] 0 unit SQ TID PRN 09/27/16 [History] Losartan Potassium [Cozaar] 50 mg PO DAILY 09/27/16 [History] Metoprolol [Lopressor] 25 mg PO BID 09/27/16 [History] Montelukast [Singulair] 10 mg PO DAILY 09/27/16 [History] Mv-Mn/FA/Vit K/Lycop/Lut/Coq10 [Daily Multivitamin Capsule] 1 each PO DAILY 07/15 [History] Omeprazole [PriLOSEC] 20 mg PO DAILY 09/27/16 [History] Cefdinir [Omnicef] 300 mg PO BID #8 capsule 09/30/16 [Rx] Allergies/Adverse Reactions: Allergies Penicillins [PCN] Allergy (Verified 09/27/16 13:45) Hives Certification: Further, I certify that my clinical findings support that this patient is homebound (i.e. absences from home require considerable and taxing effort and are for medical reasons or [facility] or infrequently or short duration when for other reasons) because: Homebound Reason: Patient requires assistance of a person or device to safely leave home Attestation: My signature below is to certify that this patient is under my care and that I, or nurse practitioner, or a physician's assistant casino shift manager working with me, has a face-to -face encounter with this patient.
[2016-09-30 11:32] VITALS: BP 120/70
== END 2016-09-30 16:38 | disposition home health service (06) | DRG 720 ==
LOC: 2NNU 21:34 → EMEROO 21:34 → 2NNU 09-27 13:47
PROVIDERS: ADMIT Hospitalist; ATTEND Internal Medicine

== ENCOUNTER 2017-10-05 10:33 | Observation (INO) ==
--- NOTE | 2017-10-05 10:50 | Emergency Department Note ---
Disposition Clinical Impression: Diverticulitis Disposition: Admitted As Inpatient Condition: Fair Referrals: Abdulkadir Avina DO [Primary Care Provider] - Forms: ED Satisfaction Letter, Work/School Release Time of Disposition: 14:00 Abdominal Pain HPI - General Chief Complaint: ED Abdominal Pain Stated Complaint: LLQ Pain Time Seen by Provider: 10/05/17 10:42 Source: patient Mode of arrival: ambulatory Limitations: no limitations Nursing Notes Reviewed: Yes Vital Signs Reviewed: Yes - History of Present Illness HPI Narrative: 61-year-old who comes in complaining of a 2 day history of left lower quadrant abdominal pain. Says she had about a year ago but is not sure what it was actually diagnosed as. Pt Subjective Complaint: abdominal pain Onset (ago): day(s) (2) Consistency: constant Location: LLQ Pain Severity: moderate Pain Scale: 4 Quality: aching Radiation: none Migration to: no migration Improves with: nothing Worsens with: nothing Treatments prior to arrival: none - Related Data Home Medications Medication Instructions Recorded Confirmed Aspirin 81 mg PO DAILY 09/27/16 01/26/17 Atorvastatin Calcium [Lipitor] 80 mg PO HS 09/27/16 01/26/17 Docusate [Colace] 100 mg PO BID 09/27/16 01/26/17 Insulin Glargine [Lantus] 60 unit SQ HS 09/27/16 01/26/17 Insulin LISPRO [Humalog Kwikpen 0 unit SQ TID PRN 09/27/16 01/26/17 U-100] Losartan Potassium [Cozaar] 50 mg PO DAILY 09/27/16 01/26/17 Metoprolol [Lopressor] 25 mg PO BID 09/27/16 01/26/17 Montelukast [Singulair] 10 mg PO DAILY 09/27/16 01/26/17 Mv-Mn/FA/Vit K/Lycop/Lut/Coq10 1 each PO DAILY 09/27/16 01/26/17 [Daily Multivitamin Capsule] Previous Rx's Medication Instructions Recorded Loratadine [Claritin] 10 mg PO DAILY #30 capsule 08/22/16 Omeprazole [PriLOSEC] 20 mg PO DAILY #30 capsule. 04/26/17 Ranitidine HCl [Zantac] 1 tab PO BID #60 tablet 09/15/17 Allergies Allergy/AdvReac Type Severity Reaction Status Date / Time Penicillins [PCN] Allergy Hives Verified 01/26/17 10:12 All systems ED: reviewed and negative except as stated. Constitutional: Denies: fever, chills, weakness, weight change Eyes: Denies: eye pain, eye discharge, vision change ENT ED: Denies: ear pain, throat pain, dental pain, hearing loss, epistaxis, congestion, dysphagia Cardiovascular: Denies: chest pain, palpitations, dyspnea on exertion, edema, syncope Respiratory: Denies: cough, dyspnea, wheezes, hemoptysis, stridor Gastrointestinal: Reports: abdominal pain. Denies: nausea, vomiting, diarrhea, constipation, hematemesis, melena, hematochezia Genitourinary: Denies: dysuria, frequency, hematuria, discharge Musculoskeletal: Denies: back pain, neck pain, arthralgia, myalgia Integumentary: Denies: rash, abrasion, lesions Neurological: Denies: headache, weakness, numbness, paresthesias, confusion, abnormal gait, vertigo Psychiatric: Denies: anxiety, depression, suicidal thoughts, homicidal thoughts , auditory hallucinations, visual hallucinations Endocrine: Denies: fatigue Hematological/Lymphatic: Denies: easy bleeding, easy bruising Allergic/Immunologic: Denies: facial swelling, urticaria Abdominal Pain PMH - Past Medical History Medical history: Reports: asthma, CHF, COPD, diabetes, hypertension Female Surgical History: Reports: no surgical history Psychiatric history: Reports: no psych history - Social History Smoking status: Former smoker Alcohol use: Reports: none Drug use: Reports: none Physical Exam - General Limitations: no limitations General appearance: alert, in no apparent distress - Head Head exam: atraumatic, normocephalic, normal inspection - Eye Eye exam: Present: normal appearance, PERRL, EOMI - ENT ENT exam: normal exam, normal oropharynx, mucous membranes moist - Neck Neck exam: Present: normal inspection, full ROM, trachea midline - Chest Chest inspection: Present: normal inspection, symmetric chest wall rise - Respiratory Respiratory exam: Present: normal lung sounds bilaterally - Cardiovascular Cardiovascular exam: Present: regular rate, normal rhythm, normal heart sounds - Abdominal Exam Abdominal exam: Present: soft, tenderness. Absent: guarding, rebound Abdominal tenderness: Present: LLQ - Extremities Exam Extremities exam: Present: normal inspection, full ROM. Absent: tenderness, pedal edema - Back Exam Back exam: Present: normal inspection, full ROM. Absent: tenderness - Neurological Exam Neurological exam: Present: alert, oriented X3 - Psychiatric Psychiatric exam: Present: normal affect, normal mood - Skin Skin exam: Present: warm, dry, intact, normal color Course - Reevaluation(s) Reevaluation #1: 61-year-old who comes in with left lower quadrant pain states she is not able to eat or drink. CT scan shows a diverticulitis. Patient will be admitted for IV antibiotics. Time: 13:59 - Consultations Consultation #1: Discussed with Dr. Small will admit. Time: 13:59 Vital Signs Temperature 97.9 F 10/05/17 10:35 Pulse Rate 88 10/05/17 10:35 Respiratory Rate 22 10/05/17 10:35 Blood Pressure 131/84 10/05/17 10:35 O2 Sat by Pulse Oximetry 97 10/05/17 10:35 Temperature 97.9 F 10/05/17 10:47 Pulse Rate 98 10/05/17 12:25 Respiratory Rate 22 10/05/17 10:47 Blood Pressure 125/86 10/05/17 12:25 O2 Sat by Pulse Oximetry 98 10/05/17 12:25 Oxygen Delivery Oxygen Delivery Room Air Abdominal Pain - Lab Data Lab results reviewed: Yes I reviewed the patient's lab results. Result diagrams: 10/05/17 11:36 10/05/17 11:36 Lab Results 10/05/17 10/05/17 10/05/17 Range/Units 10:56 11:36 11:36 WBC 10.2 (4.3-11.1) K/mcL RBC 5.77 H (3.82-4.97) M/mcL Hgb 13.2 (11.5-15.4) g/dL Hct 41.8 (35.3-44.9) % MCV 72.4 L (83.0-100.0) fL MCH 22.9 L (28.0-33.3) pg MCHC 31.6 (31.6-35.5) g/dL RDW 17.1 H (11.5-14.5) % Plt Count 210 (140-400) K/mcL MPV 12.0 (9.4-12.4) fL Immature Gran % 0.2 (0-4) % Seg Neutrophils % 53.6 % Lymphocytes % 33.8 % Monocytes % 10.3 % Eosinophils % 1.4 % Basophils % 0.7 % Neutrophils # 5.5 (1.6-8.9) K/mcL Lymphocytes # 3.4 (0.6-4.6) K/mcL Monocytes # 1.1 (0.0-1.3) K/mcL Eosinophils # 0.1 (0.0-0.6) K/mcL Basophils # 0.1 (0.0-0.2) K/mcL Sodium 137 (136-145) mEq/L Potassium 4.0 (3.5-5.1) mEq/L Chloride 105 (98-107) mEq/L Carbon Dioxide 25 (23-29) mEq/L BUN 12 (8-23) mg/dL Creatinine 0.76 (0.60-1.20) mg/dL Est GFR ( Amer) > 60 (> 60) Est GFR (Non-Af Amer) > 60 (> 60) BUN/Creatinine Ratio 16 (6-26) Glucose 127 H (70-105) mg/dL Calculated Osmolality 285 (280-300) Lactic Acid (0.5-2.2) mmol/L Calcium 9.4 (8.6-10.3) mg/dL Total Bilirubin 0.4 (0.3-1.0) mg/dL Direct Bilirubin 0.1 (0.0-0.2) mg/dL Indirect Bilirubin 0.3 (0.0-1.2) mg/dL AST 35 (13-39) Units/L ALT 36 (7-52) Units/L Alkaline Phosphatase 85 (34-104) Units/L Troponin I < 0.03 (< 0.04) ng/mL Serum Total Protein 7.1 (6.4-8.9) g/dL Albumin 3.8 (3.5-5.7) g/dL Globulin 3.3 (2.4-3.5) g/dL Albumin/Globulin Ratio 1.2 (1.1-2.2) Amylase 66 (29-103) Units/L Lipase 49 (11-82) Units/L Urine Color Yellow (Yellow) Urine Clarity Clear (Clear) Urine pH 6.0 (5.0-8.0) pH Units Ur Specific Sebastian 1.021 (1.010-1.025) Urine Protein Negative (Neg-Trace) mg/dL Urine Glucose (UA) Normal (Normal) mg/dL Urine Ketones Negative (Negative) mg/dL Urine Blood Negative (Negative) Urine Nitrite Negative (Negative) Urine Bilirubin Negative (Negative) Urine Urobilinogen Normal (Normal) mg/dL Ur Leukocyte Esterase Negative (Negative) Ur Culture Indicated? NO (NO) 10/05/17 Range/Units 11:36 WBC (4.3-11.1) K/mcL RBC (3.82-4.97) M/mcL Hgb (11.5-15.4) g/dL Hct (35.3-44.9) % MCV (83.0-100.0) fL MCH (28.0-33.3) pg MCHC (31.6-35.5) g/dL RDW (11.5-14.5) % Plt Count (140-400) K/mcL MPV (9.4-12.4) fL Immature Gran % (0-4) % Seg Neutrophils % % Lymphocytes % % Monocytes % % Eosinophils % % Basophils % % Neutrophils # (1.6-8.9) K/mcL Lymphocytes # (0.6-4.6) K/mcL Monocytes # (0.0-1.3) K/mcL Eosinophils # (0.0-0.6) K/mcL Basophils # (0.0-0.2) K/mcL Sodium (136-145) mEq/L Potassium (3.5-5.1) mEq/L Chloride (98-107) mEq/L Carbon Dioxide (23-29) mEq/L BUN (8-23) mg/dL Creatinine (0.60-1.20) mg/dL Est GFR ( Amer) (> 60) Est GFR (Non-Af Amer) (> 60) BUN/Creatinine Ratio (6-26) Glucose (70-105) mg/dL Calculated Osmolality (280-300) Lactic Acid 2.1 (0.5-2.2) mmol/L Calcium (8.6-10.3) mg/dL Total Bilirubin (0.3-1.0) mg/dL Direct Bilirubin (0.0-0.2) mg/dL Indirect Bilirubin (0.0-1.2) mg/dL AST (13-39) Units/L ALT (7-52) Units/L Alkaline Phosphatase (34-104) Units/L Troponin I (< 0.04) ng/mL Serum Total Protein (6.4-8.9) g/dL Albumin (3.5-5.7) g/dL Globulin (2.4-3.5) g/dL Albumin/Globulin Ratio (1.1-2.2) Amylase (29-103) Units/L Lipase (11-82) Units/L Urine Color (Yellow) Urine Clarity (Clear) Urine pH (5.0-8.0) pH Units Ur Specific Sebastian (1.010-1.025) Urine Protein (Neg-Trace) mg/dL Urine Glucose (UA) (Normal) mg/dL Urine Ketones (Negative) mg/dL Urine Blood (Negative) Urine Nitrite (Negative) Urine Bilirubin (Negative) Urine Urobilinogen (Normal) mg/dL Ur Leukocyte Esterase (Negative) Ur Culture Indicated? (NO) - Radiology Data Radiology results reviewed: Yes I reviewed the patient's radiology results. Abdomen/Pelvis CT 10/05/17 10:47 IMPRESSION: 1. Acute uncomplicated diverticulitis involving the distal descending colon. D/ / Dhaval Carrillo MD / Dhaval Carrillo MD Interpreting Provider: Dhaval Carrillo MD - EKG Data EKG attestation: Yes I reviewed and interpreted this EKG. EKG shows normal: sinus rhythm Rate: normal Rhythm: NSR Interpretation: no acute changes
[2017-10-05 11:32] LABS: Bilirubin,Urine Negative (Negative); Blood,Urine Negative (Negative); Clarity,Urine Clear (Clear); Color,Urine Yellow (Yellow); Glucose,Urine (UA) Normal (Normal); Ketones,Urine Negative (Negative); Leukocyte Esterase,Urine Negative (Negative); Nitrite,Urine Negative (Negative); Protein,Urine Negative (Neg-Trace); Specific Gravity,Urine 1.021 (1.010-1.025); Urobilinogen,Urine Normal (Normal)
[2017-10-05 11:59] LABS: Basophils # 0.1 K/mcL (0.0-0.2); Basophils % 0.7 %; Eosinophils # 0.1 K/mcL (0.0-0.6); Eosinophils % 1.4 %; Hematocrit 41.8 % (35.3-44.9); Hemoglobin 13.2 g/dL (11.5-15.4); Immature Granulocytes % 0.2 % (0-4); Lymphocytes # 3.4 K/mcL (0.6-4.6); Lymphocytes % 33.8 %; Mean Corpuscular HGB Conc 31.6 g/dL (31.6-35.5); Mean Corpuscular Hemoglobin 22.9 pg (28.0-33.3); Mean Corpuscular Volume 72.4 fL (83.0-100.0); Monocytes # 1.1 K/mcL (0.0-1.3); Monocytes % 10.3 %; Neutrophils # 5.5 K/mcL (1.6-8.9); Platelet Count 210 K/mcL (140-400); Red Blood Count 5.77 M/mcL (3.82-4.97); Red Cell Distribution Width 17.1 % (11.5-14.5); Segmented Neutrophils % 53.6 %
[2017-10-05 12:12] LABS: Troponin I < 0.03 ng/mL (< 0.04)
[2017-10-05 12:13] LABS: Alanine Aminotransferase 36 Units/L (7-52); Albumin 3.8 g/dL (3.5-5.7); Albumin/Globulin Ratio 1.2 (1.1-2.2); Alkaline Phosphatase 85 Units/L (34-104); Amylase 66 Units/L (29-103); Aspartate Amino Transferase 35 Units/L (13-39); BUN/Creatinine Ratio 16 (6-26); Bilirubin,Direct 0.1 mg/dL (0.0-0.2); Bilirubin,Indirect 0.3 mg/dL (0.0-1.2); Bilirubin,Total 0.4 mg/dL (0.3-1.0); Blood Urea Nitrogen 12 mg/dL (8-23); Calcium 9.4 mg/dL (8.6-10.3); Carbon Dioxide 25 mEq/L (23-29); Chloride 105 mEq/L (98-107); Globulin 3.3 g/dL (2.4-3.5); Glucose 127 mg/dL (70-105); Lipase 49 Units/L (11-82); Osmolality,Calculated 285 (280-300); Sodium 137 mEq/L (136-145); Total Protein 7.1 g/dL (6.4-8.9); eGFR For African Americans > 60 (> 60); eGFR For Non-African Americans > 60 (> 60)
--- NOTE | 2017-10-05 13:38 | Electrocardiograph Report ---
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
[2017-10-05] MEDS ORDERED: MetroNIDAZOLE 500 MG/100 ML 500 MG/100 ML BAG IVPB ONE (13:58)
[2017-10-05] MEDS ORDERED: Ondansetron 4 MG/2 ML VIAL IVP PRN (16:56)
--- NOTE | 2017-10-05 18:24 | Internal Med History&Physical ---
Date of Encounter: 10/05/17 Time of Encounter: 17:00 Internal Medicine - H&P: HPI Chief complaint: Abdominal pain Admitted From: Home History of present illness: Patient is a 61-year-old female with past medical history significant for CHF, insulin-dependent diabetes mellitus, hypertension, hyperlipidemia and COPD who presents to the ER on 10/05/17 due to abdominal pain. Patient reports a 3 day history of left-sided abdominal pain which she states is constant, made worse with movement and without any relieving factors. Patient denies any radiation of the pain but does report of associated symptoms of nausea and fever/chills. Patient was concerned and decided to come to the ER for evaluation. In the ER, CT of the abdomen/pelvis showed acute uncomplicated diverticulitis involving the distal ascending colon. Patient will be admitted to the medical surgical floor for management of diverticulitis. Past Med Surg Social Fam HX - Past Medical History Medical history: asthma, CHF, COPD, diabetes, hypertension Psychiatric history: no psych history - Past Surgical History Surgical History: - Social History Smoking Status: Former smoker Smokeless Tobacco Status: No Alcohol use: none Drug use: none - Family History Mother Living Status: Still Living Hx Family Endocrine Disorder: Yes (DM) Father Living Status: Still Living Hx Family Respiratory Disorders: Yes (blood clot) Internal Medicine - H&P: Meds Albuterol Sulfate [Ventolin Hfa] 2 puff IH Q6H PRN 10/05/17 [History] Aspirin Enteric Coated [Aspirin EC] 81 mg PO DAILY 10/05/17 [History] Atorvastatin Calcium [Lipitor] 80 mg PO HS 10/05/17 [History] Docusate [Colace] 100 mg PO DAILY 10/05/17 [History] Furosemide [Lasix] 20 mg PO DAILY 10/05/17 [History] Insulin Regular, Human [Humulin R U-500 Kwikpen] 65 unit SQ BID 10/05/17 [ History] Ipratropium/Albuterol Neb [Duoneb] 3 ml IH Q6HR PRN 10/05/17 [History] Liraglutide [Victoza 3-Joel] 1.8 mg SQ DAILY 10/05/17 [History] Losartan Potassium [Cozaar] 50 mg PO DAILY 10/05/17 [History] Metoprolol [Lopressor] 25 mg PO BID 10/05/17 [History] Montelukast [Singulair] 10 mg PO HS 10/05/17 [History] Multivitamin [One Daily Essential] 1 tab PO DAILY 10/05/17 [History] Omeprazole [PriLOSEC] 20 mg PO BIDAC 10/05/17 [History] Potassium Chloride [K-Tab ER] 20 meq PO DAILY 10/05/17 [History] Ranitidine HCl [Zantac] 150 mg PO HS 10/05/17 [History] Sennosides/Docusate Sodium [Senna Plus] 1 each PO DAILY 10/05/17 [History] 3 Allergy/AdvReac Type Severity Reaction Status Date / Time Penicillins [PCN] Allergy Hives Verified 10/05/17 14:31 All Systems PM: A 10-system review of systems was performed and is negative for pertinent findings except as documented above in the HPI. - Constitutional Vitals: Temp Pulse Resp BP Pulse Ox 97.9 F 102 16 130/85 95 10/05/17 15:22 10/05/17 15:22 10/05/17 15:22 10/05/17 15:22 10/05/17 15:22 General appearance: Present: A&O X 3, morbidly obese, no acute distress - Eye Eye exam: Present: normal appearance - ENT ENT exam: Present: mucous membranes dry - Respiratory Respiratory exam: Present: CTAB. Absent: accessory muscle use, rales, rhonchi, wheezes - Cardiovascular Cardiovascular exam: Present: RRR, +S1, +S2. Absent: diastolic murmur, gallop, rubs, systolic murmur - GI/Abdominal GI/Abdominal exam: Present: soft, tenderness. Absent: distended (Left-sided abdominal pain), firm - Extremities Exam Extremities exam: Absent: pedal edema - Neurological Exam Neurological exam: Present: oriented X3 - Psychiatric Psychiatric exam: Present: normal mood - Skin Skin exam: Present: normal color Internal Med - H&P Results - Labs CBC & Chem 7: 10/05/17 11:36 10/05/17 11:36 - Assessment and plan (1) Diverticulitis Current Visit: Yes Status: Acute Assessment and plan: Patient with a 3 day history of left-sided abdominal pain In the ER, CT of the abdomen/pelvis showed acute uncomplicated diverticulitis involving the distal ascending colon. Will continue IV Cipro and Flagyl started in the ER and have patient nothing by mouth overnight Reevaluate in the morning (2) COPD (chronic obstructive pulmonary disease) Current Visit: No Status: Chronic Assessment and plan: Will continue home medications Qualifiers: COPD type: unspecified COPD Qualified Code(s): J44.9 - Chronic obstructive pulmonary disease, unspecified (3) HTN (hypertension) Current Visit: No Status: Chronic Assessment and plan: Controlled; continue home medications Qualifiers: Hypertension type: essential hypertension Qualified Code(s): I10 - Essential (primary) hypertension (4) Morbid obesity Current Visit: No Status: Chronic Assessment and plan: BMI of 60.6 (5) DVT prophylaxis Current Visit: No Status: Acute Assessment and plan: Subcutaneous heparin - Time Spent With Patient Total time spent is greater than 50% in coordination of care (as documented) at patient's floor/unit and/or counseling patient:
[2017-10-05] MEDS ORDERED: Naloxone 0.4 MG/ML INJ IVP PRN (18:31)
[2017-10-05] MEDS ORDERED: Ipratropium/Albuterol Neb 3 ML IH PRN (18:35)
[2017-10-05] MEDS: 0.9 % Sodium Chloride 1,000 ML IVC SCH (18:54)
[2017-10-05] MEDS: Ketorolac 30 MG/ML VIAL IVP PRN (18:58)
[2017-10-05] MEDS: Famotidine 20 MG TABLET PO SCH (22:24)
[2017-10-06] MEDS: *HR* Heparin 5,000 UNIT/ML VIAL SQ SCH ×4 (00:40→20:50)
[2017-10-06] MEDS: MetroNIDAZOLE 500 MG/100 ML 500 MG/100 ML BAG IVPB SCH ×3 (01:07→15:36)
[2017-10-06 05:46] LABS: BUN/Creatinine Ratio 16 (6-26); Blood Urea Nitrogen 13 mg/dL (8-23); Calcium 9.2 mg/dL (8.6-10.3); Carbon Dioxide 22 mEq/L (23-29); Chloride 105 mEq/L (98-107); Glucose 142 mg/dL (70-105); Osmolality,Calculated 289 (280-300); Sodium 138 mEq/L (136-145); eGFR For African Americans > 60 (> 60); eGFR For Non-African Americans > 60 (> 60)
[2017-10-06 06:35] LABS: Immature Granulocytes % 0.3 % (0-4)
[2017-10-06] MEDS: Ketorolac 30 MG/ML VIAL IVP PRN (06:36)
[2017-10-06 06:37] LABS: Basophils # 0.1 K/mcL (0.0-0.2); Basophils % 0.6 %; Eosinophils # 0.1 K/mcL (0.0-0.6); Eosinophils % 1.4 %; Hematocrit 38.3 % (35.3-44.9); Hemoglobin 11.9 g/dL (11.5-15.4); Immature Platelets 4.8 % (1.1-6.1); Lymphocytes # 2.8 K/mcL (0.6-4.6); Lymphocytes % 29.5 %; Mean Corpuscular HGB Conc 31.1 g/dL (31.6-35.5); Mean Corpuscular Hemoglobin 22.7 pg (28.0-33.3); Mean Corpuscular Volume 73.1 fL (83.0-100.0); Mean Platelet Volume 11.7 fL (9.4-12.4); Monocytes # 1.4 K/mcL (0.0-1.3); Monocytes % 15.1 %; Platelet Count 167 K/mcL (140-400); Red Blood Count 5.24 M/mcL (3.82-4.97); Segmented Neutrophils % 53.1 %
[2017-10-06 07:19] LABS: Platelet Estimate Normal (Normal)
[2017-10-06] MEDS: Aspirin Enteric Coated 81 MG Tablet PO SCH (08:57)
[2017-10-06] MEDS: Sennosides/Docusate Sodium TABLET PO SCH (08:58)
[2017-10-06] MEDS ORDERED: Furosemide 20 MG TABLET PO SCH (09:00)
[2017-10-06] MEDS ORDERED: *HR* Metoprolol 5 MG/5 ML VIAL IVP PRN (10:07)
--- NOTE | 2017-10-06 10:07 | Internal Med Progress Note ---
Date of Encounter: 10/06/17 Time of Encounter: 10:05 - Assessment and plan (1) Diverticulitis Current Visit: Yes Status: Acute Assessment and plan: Patient with a 3 day history of left-sided abdominal pain In the ER, CT of the abdomen/pelvis showed acute uncomplicated diverticulitis involving the distal ascending colon. 1 SIRS criteria on admission (tachycardia) Advance diet to clears and see if she tolerates. Continue Cipro/Flagyl (2) COPD (chronic obstructive pulmonary disease) Current Visit: No Status: Chronic Assessment and plan: Will continue home medications Qualifiers: COPD type: unspecified COPD Qualified Code(s): J44.9 - Chronic obstructive pulmonary disease, unspecified (3) HTN (hypertension) Current Visit: No Status: Chronic Assessment and plan: Controlled; continue home medications Qualifiers: Hypertension type: essential hypertension Qualified Code(s): I10 - Essential (primary) hypertension (4) Morbid obesity Current Visit: No Status: Chronic Assessment and plan: BMI of 60.6 (5) DVT prophylaxis Current Visit: No Status: Acute Assessment and plan: Subcutaneous heparin - Time Spent With Patient Total time spent is greater than 50% in coordination of care (as documented) at patient's floor/unit and/or counseling patient: - Subjective Interval history: No acute events. Patient - Constitutional Vitals: Temp Pulse Resp BP Pulse Ox 98.2 F 99 20 114/73 96 10/06/17 06:48 10/06/17 06:48 10/06/17 06:48 10/06/17 06:48 10/06/17 06:48 General appearance: Present: A&O X 3, morbidly obese, no acute distress - Head Head exam: Present: atraumatic, normocephalic - Eye Eye exam: Present: PERRL, conjuntiva pink, sclera anicteric Pupils: Present: PERRL - Neck Neck exam general surgery: Present: supple, trachea midline. Absent: lymphadenopathy - Respiratory Respiratory exam: Present: CTAB. Absent: accessory muscle use, rales, rhonchi, wheezes - Cardiovascular Cardiovascular exam: Present: RRR, +S1, +S2. Absent: diastolic murmur, gallop, rubs, systolic murmur - GI/Abdominal GI/Abdominal exam: Present: normal bowel sounds, soft, tenderness, no peritoneal signs. Absent: distended - Extremities Exam Extremities exam: Present: warm, radial pulses palpable and symmetrical. Absent : calf tenderness, cyanotic, pedal edema - Neurological Exam Neurological exam: Present: CN II-XII intact, oriented X3, no focal deficits. Absent: pronater drift, facial droop, speech deficit - Skin Skin exam: Present: dry, intact Internal Medicine: Result - Labs CBC & Chem 7: 10/06/17 05:47 10/06/17 04:16 Labs: Short CBC 10/06/17 Range/Units 05:47 WBC 9.4 (4.3-11.1) K/mcL Hgb 11.9 (11.5-15.4) g/dL Hct 38.3 (35.3-44.9) % Plt Count 167 (140-400) K/mcL Neutrophils # 5.0 (1.6-8.9) K/mcL BMP 10/06/17 04:16 Sodium 138 Potassium 4.0 Chloride 105 Carbon Dioxide 22 L BUN 13 Creatinine 0.83 Glucose 142 H Calcium 9.2 Consult Discharge Plan - Plan Referrals: Abdulkadir Avina DO [Primary Care Provider] -
[2017-10-06] MEDS: 0.9 % Sodium Chloride 1,000 ML IVC SCH (18:04)
[2017-10-06] MEDS: Famotidine 20 MG TABLET PO SCH (20:50)
[2017-10-07] MEDS: MetroNIDAZOLE 500 MG/100 ML 500 MG/100 ML BAG IVPB SCH ×2 (00:15→07:56)
[2017-10-07] MEDS: *HR* Heparin 5,000 UNIT/ML VIAL SQ SCH (06:00)
[2017-10-07] MEDS: Sennosides/Docusate Sodium TABLET PO SCH (07:56)
[2017-10-07] MEDS: Aspirin Enteric Coated 81 MG Tablet PO SCH (07:56)
--- NOTE | 2017-10-07 10:53 | Internal Med Progress Note ---
Date of Encounter: 10/07/17 Time of Encounter: 10:51 - Assessment and plan (1) Diverticulitis Current Visit: Yes Status: Acute Assessment and plan: Patient with a 3 day history of left-sided abdominal pain In the ER, CT of the abdomen/pelvis showed acute uncomplicated diverticulitis involving the distal ascending colon. 1 SIRS criteria on admission (tachycardia) Advance diet to soft Continue Cipro/Flagyl Advancing diet if tolerating, possibly discharge today or early tomorrow. (2) Diabetes Current Visit: Yes Status: Acute Assessment and plan: Will start giving insulin since patient is advancing diet. Qualifiers: Diabetes mellitus type: type 2 Diabetes mellitus terminologist insulin use: with terminologist use Diabetes mellitus complication status: with unspecified complications Qualified Code(s): E11.8 - Type 2 diabetes mellitus with unspecified complications; Z79.4 - terminal make up operator (current) use of insulin (3) COPD (chronic obstructive pulmonary disease) Current Visit: No Status: Chronic Assessment and plan: Will continue home medications Qualifiers: COPD type: unspecified COPD Qualified Code(s): J44.9 - Chronic obstructive pulmonary disease, unspecified (4) HTN (hypertension) Current Visit: No Status: Chronic Assessment and plan: Controlled; continue home medications Qualifiers: Hypertension type: essential hypertension Qualified Code(s): I10 - Essential (primary) hypertension (5) Morbid obesity Current Visit: No Status: Chronic Assessment and plan: BMI of 60.6 (6) DVT prophylaxis Current Visit: No Status: Acute Assessment and plan: Subcutaneous heparin - Time Spent With Patient Total time spent is greater than 50% in coordination of care (as documented) at patient's floor/unit and/or counseling patient: - Subjective Interval history: No acute events. She thinks she may be able to tolerate advancing diet. Denies fevers/chills. Abdominal pain slowly improving. - Constitutional Vitals: Temp Pulse Resp BP Pulse Ox 97.5 F L 91 16 104/70 91 10/07/17 10:04 10/07/17 10:04 10/07/17 10:04 10/07/17 10:04 10/07/17 10:04 General appearance: Present: A&O X 3, morbidly obese, no acute distress Exam: - Head Head exam: Present: atraumatic, normocephalic - Eye Eye exam: Present: PERRL, conjuntiva pink, sclera anicteric Pupils: Present: PERRL - Neck Neck exam general surgery: Present: supple, trachea midline. Absent: lymphadenopathy - Respiratory Respiratory exam: Present: CTAB. Absent: accessory muscle use, rales, rhonchi, wheezes - Cardiovascular Cardiovascular exam: Present: RRR, +S1, +S2. Absent: diastolic murmur, gallop, rubs, systolic murmur - GI/Abdominal GI/Abdominal exam: Present: normal bowel sounds, soft, tenderness, no peritoneal signs. Absent: distended - Extremities Exam Extremities exam: Present: warm, radial pulses palpable and symmetrical. Absent : calf tenderness, cyanotic, pedal edema - Neurological Exam Neurological exam: Present: CN II-XII intact, oriented X3, no focal deficits. Absent: pronater drift, facial droop, speech deficit - Skin Skin exam: Present: dry, intact Internal Medicine: Result - Labs CBC & Chem 7: 10/06/17 05:47 10/06/17 04:16 Consult Discharge Plan - Plan Referrals: Abdulkadir Avina DO [Primary Care Provider] - 10/11/17 10:00 am
[2017-10-07 14:23] VITALS: BP 109/73
--- NOTE | 2017-10-07 17:43 | Discharge Summary ---
- NOTES TO OUTPATIENT PROVIDER Notes to Outpatient Provider: - Cipro/Flagyl on discharge Orders not resulted at time of discharge: Pending orders 10/08/17 04:00 BMP [Basic Metabolic Panel] AM 0400 Complete Blood Count [HEME] AM 0400 10/09/17 04:00 BMP [Basic Metabolic Panel] AM 0400 Complete Blood Count [HEME] AM 0400 10/10/17 04:00 BMP [Basic Metabolic Panel] AM 0400 Complete Blood Count [HEME] AM 0400 10/11/17 04:00 BMP [Basic Metabolic Panel] AM 0400 Complete Blood Count [HEME] AM 0400 10/12/17 04:00 BMP [Basic Metabolic Panel] AM 0400 Complete Blood Count [HEME] AM 04010/13/17 04:00 BMP [Basic Metabolic Panel] AM 0400 Complete Blood Count [HEME] AM 0400 10/14/17 04:00 BMP [Basic Metabolic Panel] AM 0400 Complete Blood Count [HEME] AM 0400 10/15/17 04:00 BMP [Basic Metabolic Panel] AM 0400 Complete Blood Count [HEME] AM 0400 10/16/17 04:00 BMP [Basic Metabolic Panel] AM 0400 Complete Blood Count [HEME] AM 0400 10/17/17 04:00 BMP [Basic Metabolic Panel] AM 0400 Complete Blood Count [HEME] AM 0400 Date of Encounter: 10/07/17 Time of Encounter: 17:40 - Discharge Diagnosis (1) Diverticulitis Priority: Primary Status: Acute (2) Diabetes Priority: Secondary Status: Acute Qualifiers: Diabetes mellitus type: type 2 Diabetes mellitus neuropsychology medical consultant insulin use: with neuropsychology medical consultant use Diabetes mellitus complication status: with unspecified complications Qualified Code(s): E11.8 - Type 2 diabetes mellitus with unspecified complications; Z79.4 - care home (current) use of insulin (3) COPD (chronic obstructive pulmonary disease) Priority: Secondary Status: Chronic Qualifiers: COPD type: unspecified COPD Qualified Code(s): J44.9 - Chronic obstructive pulmonary disease, unspecified (4) HTN (hypertension) Priority: Secondary Status: Chronic Qualifiers: Hypertension type: essential hypertension Qualified Code(s): I10 - Essential (primary) hypertension (5) Morbid obesity Priority: Secondary Status: Chronic (6) DVT prophylaxis Priority: Secondary Status: Acute Hospital course: Ms. Carl is a 61 year old female with past medical history significant for CHF, insulin-dependent diabetes mellitus, hypertension, hyperlipidemia and COPD who presents to the ER on 10/05/17 due to abdominal pain. Patient reports a 3 day history of left-sided abdominal pain which she states is constant, made worse with movement and without any relieving factors. Patient denies any radiation of the pain but does report of associated symptoms of nausea and fever/chills. Patient was concerned and decided to come to the ER for evaluation. In the ER, CT of the abdomen/pelvis showed acute uncomplicated diverticulitis involving the distal ascending colon. She was admitted for further management. She was started on Cipro and Flagyl IV. Patient was afebrile, hemodynamically stable, and had normal white blood cell counts. Patient was able to advance her diet without issue. She was discharged home in stable condition with rx for Cipro/Flagyl - Time Spent with Patient Total time spent providing and/or coordinating discharge services: - Discharge Medications Home Medications: Albuterol Sulfate [Ventolin Hfa] 2 puff IH Q6H PRN 10/05/17 [History] Aspirin Enteric Coated [Aspirin EC] 81 mg PO DAILY 10/05/17 [History] Atorvastatin Calcium [Lipitor] 80 mg PO HS 10/05/17 [History] Docusate [Colace] 100 mg PO DAILY 10/05/17 [History] Furosemide [Lasix] 20 mg PO DAILY 10/05/17 [History] Insulin Regular, Human [Humulin R U-500 Kwikpen] 65 unit SQ BID 10/05/17 [ History] Ipratropium/Albuterol Neb [Duoneb] 3 ml IH Q6HR PRN 10/05/17 [History] Liraglutide [Victoza 3-Joel] 1.8 mg SQ DAILY 10/05/17 [History] Losartan Potassium [Cozaar] 50 mg PO DAILY 10/05/17 [History] Metoprolol [Lopressor] 25 mg PO BID 10/05/17 [History] Montelukast [Singulair] 10 mg PO HS 10/05/17 [History] Multivitamin [One Daily Essential] 1 tab PO DAILY 10/05/17 [History] Omeprazole [PriLOSEC] 20 mg PO BIDAC 10/05/17 [History] Potassium Chloride [K-Tab ER] 20 meq PO DAILY 10/05/17 [History] Ranitidine HCl [Zantac] 150 mg PO HS 10/05/17 [History] Sennosides/Docusate Sodium [Senna Plus] 1 each PO DAILY 10/05/17 [History] Ciprofloxacin HCl [Cipro] 500 mg PO BID #14 tablet 10/07/17 [Rx] Ondansetron HCl [Zofran] 4 mg PO Q8HR PRN #12 tab 10/07/17 [Rx] metroNIDAZOLE [Flagyl] 500 mg PO TID #21 tablet 10/07/17 [Rx] Allergies/Adverse Reactions: 3 Allergy/AdvReac Type Severity Reaction Status Date / Time Penicillins [PCN] Allergy Hives Verified 10/05/17 14:31 Date of admission: 10/05/17 14:05 Primary care physician: Abdulkadir Avina DO Discharging clinician: Akira Nick - Constitutional Vitals: Temp Pulse Resp BP Pulse Ox 97.9 F 82 18 109/73 97 10/07/17 14:21 10/07/17 14:21 10/07/17 14:21 10/07/17 14:21 10/07/17 14:21 General appearance: Present: A&O X 3, morbidly obese, no acute distress - Head Head exam: Present: atraumatic, normocephalic - Eye Eye exam: Present: PERRL, conjuntiva pink, sclera anicteric Pupils: Present: PERRL - Neck Neck exam general surgery: Present: supple, trachea midline. Absent: lymphadenopathy - Respiratory Respiratory exam: Present: CTAB. Absent: accessory muscle use, rales, rhonchi, wheezes - Cardiovascular Cardiovascular exam: Present: RRR, +S1, +S2. Absent: diastolic murmur, gallop, rubs, systolic murmur - GI/Abdominal GI/Abdominal exam: Present: normal bowel sounds, soft, tenderness (improved), no peritoneal signs. Absent: distended - Extremities Exam Extremities exam: Present: warm, radial pulses palpable and symmetrical. Absent : calf tenderness, cyanotic, pedal edema - Neurological Exam Neurological exam: Present: CN II-XII intact, oriented X3, no focal deficits. Absent: pronater drift, facial droop, speech deficit - Skin Skin exam: Present: dry, intact - Patient Status Disposition: Home, Self-Care Condition: Fair Functional capacity at discharge: independent ambulation Overall status at discharge: patient is progressing back to baseline - Discharge Instructions Follow Up With: Abdulkadir Avina DO [Primary Care Provider] - 10/11/17 10:00 am - Diet and Activity Activity: increase activity as tolerated Diet: advance to your usual diet
--- NOTE | 2017-10-07 18:25 | Physician Discharge Referral ---
Home Health/Hosp Referral Info Transfer to: Home Health Provider in Charge Post Discharge: PCP - Diagnosis (1) Diverticulitis Priority: Primary Status: Acute (2) Diabetes Priority: Secondary Status: Acute (3) COPD (chronic obstructive pulmonary disease) Priority: Secondary Status: Chronic (4) HTN (hypertension) Priority: Secondary Status: Chronic (5) Morbid obesity Priority: Secondary Status: Chronic (6) DVT prophylaxis Priority: Secondary Status: Acute - Respiratory Orders Smoking Cessation: Smoking cessation has been advised. For more information, call the [place] [employer] Quit Line at 6-375-YHYA-NOW. - Diet/Nutrition Diet/Nutrition: List: Diabetic - Activity Activity: List: as per physical therapy - Services Needed Following services are medically necessary services: Nursing, Home Health Aide - Transfer Medications Prescriptions: Ondansetron HCl [Zofran] 4 mg PO Q8HR PRN #12 tab PRN Reason: Nausea And Vomiting Ciprofloxacin HCl [Cipro] 500 mg PO BID #14 tablet metroNIDAZOLE [Flagyl] 500 mg PO TID #21 tablet Home Medications: Albuterol Sulfate [Ventolin Hfa] 2 puff IH Q6H PRN 10/05/17 [History] Aspirin Enteric Coated [Aspirin EC] 81 mg PO DAILY 10/05/17 [History] Atorvastatin Calcium [Lipitor] 80 mg PO HS 10/05/17 [History] Docusate [Colace] 100 mg PO DAILY 10/05/17 [History] Furosemide [Lasix] 20 mg PO DAILY 10/05/17 [History] Insulin Regular, Human [Humulin R U-500 Kwikpen] 65 unit SQ BID 10/05/17 [ History] Ipratropium/Albuterol Neb [Duoneb] 3 ml IH Q6HR PRN 10/05/17 [History] Liraglutide [Victoza 3-Joel] 1.8 mg SQ DAILY 10/05/17 [History] Losartan Potassium [Cozaar] 50 mg PO DAILY 10/05/17 [History] Metoprolol [Lopressor] 25 mg PO BID 10/05/17 [History] Montelukast [Singulair] 10 mg PO HS 10/05/17 [History] Multivitamin [One Daily Essential] 1 tab PO DAILY 10/05/17 [History] Omeprazole [PriLOSEC] 20 mg PO BIDAC 10/05/17 [History] Potassium Chloride [K-Tab ER] 20 meq PO DAILY 10/05/17 [History] Ranitidine HCl [Zantac] 150 mg PO HS 10/05/17 [History] Sennosides/Docusate Sodium [Senna Plus] 1 each PO DAILY 10/05/17 [History] Ciprofloxacin HCl [Cipro] 500 mg PO BID #14 tablet 10/07/17 [Rx] Ondansetron HCl [Zofran] 4 mg PO Q8HR PRN #12 tab 10/07/17 [Rx] metroNIDAZOLE [Flagyl] 500 mg PO TID #21 tablet 10/07/17 [Rx] Allergies/Adverse Reactions: 3 Allergy/AdvReac Type Severity Reaction Status Date / Time Penicillins [PCN] Allergy Hives Verified 10/05/17 14:31 Certification: Further, I certify that my clinical findings support that this patient is homebound (i.e. absences from home require considerable and taxing effort and are for medical reasons or congregational services or infrequently or short duration when for other reasons) because: Homebound Reason: Patient requires assistance of a person or device to safely leave home Attestation: My signature below is to certify that this patient is under my care and that I, or nurse practitioner, or a physician's quality assistant working with me, has a face-to -face encounter with this patient.
[2017-10-07] MEDS ORDERED: Insulin DETEMIR 100 UNIT/ML X5UNITS SQ SCH ×2 (21:00)
== END 2017-10-07 19:00 | disposition home or self-care (01) ==
LOC: 3ANU 10:33 → EMEROO 10:33 → 3ANU 15:07
PROVIDERS: ADMIT Hospitalist; ATTEND Hospitalist

== ENCOUNTER 2018-01-21 11:36 | Inpatient (IN) ==
[2018-01-21] MEDS ORDERED: Ondansetron 4 MG/2 ML VIAL IVP ONE (11:39)
[2018-01-21] MEDS ORDERED: 0.9 % Sodium Chloride 1,000 ML IVC ONE ×2 (11:39→15:10)
[2018-01-21] MEDS ORDERED: Ondansetron ODT 4 MG TAB.RAPDIS SL ONE (11:41)
[2018-01-21 12:06] LABS: Basophils # 0.1 K/mcL (0.0-0.2); Basophils % 0.8 %; Eosinophils # 0.2 K/mcL (0.0-0.6); Hematocrit 43.2 % (35.3-44.9); Hemoglobin 13.6 g/dL (11.5-15.4); Immature Granulocytes % 0.4 % (0-4); Lymphocytes # 4.9 K/mcL (0.6-4.6); Lymphocytes % 41.2 %; Mean Corpuscular HGB Conc 31.5 g/dL (31.6-35.5); Mean Corpuscular Hemoglobin 23.2 pg (28.0-33.3); Mean Corpuscular Volume 73.6 fL (83.0-100.0); Mean Platelet Volume 10.8 fL (9.4-12.4); Monocytes # 1.2 K/mcL (0.0-1.3); Neutrophils # 5.4 K/mcL (1.6-8.9); Platelet Count 178 K/mcL (140-400); Red Blood Count 5.87 M/mcL (3.82-4.97); Red Cell Distribution Width 16.5 % (11.5-14.5); Segmented Neutrophils % 45.6 %
--- NOTE | 2018-01-21 12:08 | Emergency Department Note ---
Disposition Clinical Impression: Elevated lactic acid level Urinary tract infection Qualifiers: Urinary tract infection type: site unspecified Hematuria presence: without hematuria Qualified Code(s): N39.0 - Urinary tract infection, site not specified Nausea and vomiting Qualifiers: Vomiting type: unspecified Vomiting Intractability: non-intractable Qualified Code(s): R11.2 - Nausea with vomiting, unspecified Disposition: Admitted As Inpatient Condition: Good Forms: ED Satisfaction Letter Weakness HPI - General Chief complaint: ED Weakness Stated complaint: Weaknes Time Seen by Provider: 01/21/18 11:39 Source: EMS Limitations: no limitations Nursing Notes Reviewed: Yes Vital Signs Reviewed: Yes - History of Present Illness HPI Narrative: Patient presents via EMS. Patient felt fine until this morning. Patient has complaints of nausea vomiting and dizziness. Patient states that she went to eat breakfast and give herself insulin but started vomiting. Patient did have some of her breakfast. She is actively vomiting in the room. Patient states that she has also had some shortness of breath which has improved with the oxygen EMS placed on her. Due to her active vomiting we will start treatment and then reassess for further history. Pain Scale: 8 - Related Data Home Medications Medication Instructions Recorded Confirmed Albuterol Sulfate [Ventolin Hfa] 2 puff IH Q6H PRN 10/05/17 01/21/18 Aspirin Enteric Coated [Aspirin EC] 81 mg PO DAILY 10/05/17 01/21/18 Atorvastatin Calcium [Lipitor] 80 mg PO HS 10/05/17 01/21/18 Docusate [Colace] 100 mg PO DAILY 10/05/17 01/21/18 Insulin Regular, Human [Humulin R 70 unit SQ BID 10/05/17 01/21/18 U-500 Kwikpen] Liraglutide [Victoza 3-Joel] 1.8 mg SQ DAILY 10/05/17 01/21/18 Losartan Potassium [Cozaar] 50 mg PO DAILY 10/05/17 01/21/18 Metoprolol [Lopressor] 25 mg PO BID 10/05/17 01/21/18 Montelukast [Singulair] 10 mg PO HS 10/05/17 01/21/18 Multivitamin [One Daily Essential] 1 tab PO DAILY 10/05/17 01/21/18 Potassium Chloride [K-Tab ER] 20 meq PO DAILY 10/05/17 01/21/18 Sennosides/Docusate Sodium [Senna 1 each PO DAILY 10/05/17 01/21/18 Plus] raNITIdine HCl [Zantac] 150 mg PO HS 10/05/17 01/21/18 Bumetanide [Bumex] 1 mg PO BID 01/21/18 01/21/18 Loratadine [Claritin] 10 mg PO DAILY 01/21/18 01/21/18 Pantoprazole Sodium 40 mg PO BID 01/21/18 01/21/18 Torsemide [Demadex] 20 mg PO DAILY 01/21/18 01/21/18 Allergies Allergy/AdvReac Type Severity Reaction Status Date / Time Penicillins [PCN] Allergy Hives Verified 10/05/17 14:31 Limitations: ROS unobtainable due to patients medical condition Past Medical History - Past Medical History Medical history: Reports: asthma, CHF, COPD, diabetes, GERD, hypertension Surgical history: Reports: Psychiatric history: Reports: no psych history - Social History Smoking Status: Former smoker Smokeless Tobacco Status: No Alcohol use: Reports: none Drug use: Reports: none Physical Exam General: Patient actively vomiting in the room. Vomit is yellow in nature. Head: Normocephalic Atraumatic Eyes: PERRL, EOMI ENT: Airway patent, no stridor Neck: supple, no meningismus Chest: Lungs clear to auscultation bilateral Cardiac: Regular rhythm Abdomen: soft, nontender, nondistended; no guarding, rebound, or tenderness to percussion Musculoskeletal: Calves symmetric, nontender, no palpable cord Skin: No rash, normal skin tone Neuro: Alert and Oriented to person, place, and time; No focal deficit, - General Limitations: no limitations General appearance: alert, in no apparent distress Course Course Narrative: Computer history shows history of DKA and frequent urinary tract infections. Labs have been ordered. Awaiting reevaluation after medications and symptom improvement. - Reevaluation(s) Reevaluation #1: Patient's nausea has improved. She has been given 2 L of fluids. She has been given Rocephin for concern for UTI with nitrates positive. She does have a mildly elevated white count. CT scan results were obscured secondary to not sufficient quality to put an official report. I did discuss with radiology and they state that there is no evidence of small bowel obstruction. Overall they are able to see a thickened endometrial stripe which will likely require pelvic ultrasound. The official report and any changes that will be made to this will be in the following repeat CT abdomen and pelvis. At this time the patient's symptoms have improved significantly. I believe she is appropriate for admission at this time. I will continue to watch for CT scan results and related to the hospitalist or take care of them if this alters overall admission and management plan. - Consultations Consultation #1: Discussed with hospitalist. Concerned that without official read on the CT scan that this could also be a small bowel obstruction. I will discuss with radiology in regards to why they only have a limited report within the system. Vital Signs Temperature 99.1 F 01/21/18 11:52 Pulse Rate 106 01/21/18 11:52 Respiratory Rate 20 01/21/18 11:52 Blood Pressure 171/77 01/21/18 11:52 O2 Sat by Pulse Oximetry 97 01/21/18 11:52 Temperature 99.1 F 01/21/18 11:52 Pulse Rate 106 01/21/18 11:52 Respiratory Rate 20 01/21/18 11:52 Blood Pressure 171/77 01/21/18 11:52 O2 Sat by Pulse Oximetry 97 01/21/18 11:52 Oxygen Delivery Oxygen Delivery Room Air Weakness - Medical Records Medical records reviewed: Yes I reviewed the patient's medical records. - Lab Data Lab results reviewed: Yes I reviewed the patient's lab results. Result diagrams: 01/21/18 11:53 01/21/18 11:53 Lab Results 01/21/18 01/21/18 01/21/18 Range/Units 11:53 11:53 11:53 WBC 11.9 H (4.3-11.1) K/mcL RBC 5.87 H (3.82-4.97) M/mcL Hgb 13.6 (11.5-15.4) g/dL Hct 43.2 (35.3-44.9) % MCV 73.6 L (83.0-100.0) fL MCH 23.2 L (28.0-33.3) pg MCHC 31.5 L (31.6-35.5) g/dL RDW 16.5 H (11.5-14.5) % Plt Count 178 (140-400) K/mcL MPV 10.8 (9.4-12.4) fL Immature Gran % 0.4 (0-4) % Seg Neutrophils % 45.6 % Lymphocytes % 41.2 % Monocytes % 10.0 % Eosinophils % 2.0 % Basophils % 0.8 % Neutrophils # 5.4 (1.6-8.9) K/mcL Lymphocytes # 4.9 H (0.6-4.6) K/mcL Monocytes # 1.2 (0.0-1.3) K/mcL Eosinophils # 0.2 (0.0-0.6) K/mcL Basophils # 0.1 (0.0-0.2) K/mcL VBG pH (7.32-7.42) pH Units VBG pCO2 (41-51) mmHg VBG pO2 (25-50) mmHg VBG HCO3 (21-27) mEq/L Sodium 137 (136-145) mEq/L Potassium 3.6 (3.5-5.1) mEq/L Chloride 101 (98-107) mEq/L Carbon Dioxide 25 (23-29) mEq/L BUN 16 (8-23) mg/dL Creatinine 0.91 (0.60-1.20) mg/dL Est GFR ( Amer) > 60 (> 60) Est GFR (Non-Af Amer) > 60 (> 60) BUN/Creatinine Ratio 18 (6-26) Glucose 197 H (70-105) mg/dL Calculated Osmolality 291 (280-300) Lactic Acid 3.2 H (0.5-2.2) mmol/L Calcium 9.4 (8.6-10.3) mg/dL Total Bilirubin (0.3-1.0) mg/dL Direct Bilirubin (0.0-0.2) mg/dL Indirect Bilirubin (0.0-1.2) mg/dL AST (13-39) Units/L ALT (7-52) Units/L Alkaline Phosphatase (34-104) Units/L Troponin I (< 0.04) ng/mL Serum Total Protein (6.4-8.9) g/dL Albumin (3.5-5.7) g/dL Globulin (2.4-3.5) g/dL Albumin/Globulin Ratio (1.1-2.2) Lipase (11-82) Units/L Urine Color (Yellow) Urine Clarity (Clear) Urine pH (5.0-8.0) pH Units Ur Specific [employer] (1.010-1.025) Urine Protein (Neg-Trace) mg/dL Urine Glucose (UA) (Normal) mg/dL Urine Ketones (Negative) mg/dL Urine Blood (Negative) Urine Nitrite (Negative) Urine Bilirubin (Negative) Urine Urobilinogen (Normal) mg/dL Ur Leukocyte Esterase (Negative) Urine Microscopic RBC (0-3) per hpf Urine Microscopic WBC (0-3) per hpf Ur Squamous Epith Cells (None-Few) per lpf Urine Bacteria (None-Few) per hpf Hyaline Casts (None-Few) per lpf Ur Culture Indicated? (NO) 01/21/18 01/21/18 01/21/18 Range/Units 11:53 12:06 13:20 WBC (4.3-11.1) K/mcL RBC (3.82-4.97) M/mcL Hgb (11.5-15.4) g/dL Hct (35.3-44.9) % MCV (83.0-100.0) fL MCH (28.0-33.3) pg MCHC (31.6-35.5) g/dL RDW (11.5-14.5) % Plt Count (140-400) K/mcL MPV (9.4-12.4) fL Immature Gran % (0-4) % Seg Neutrophils % % Lymphocytes % % Monocytes % % Eosinophils % % Basophils % % Neutrophils # (1.6-8.9) K/mcL Lymphocytes # (0.6-4.6) K/mcL Monocytes # (0.0-1.3) K/mcL Eosinophils # (0.0-0.6) K/mcL Basophils # (0.0-0.2) K/mcL VBG pH 7.39 (7.32-7.42) pH Units VBG pCO2 46 (41-51) mmHg VBG pO2 143 H (25-50) mmHg VBG HCO3 27 (21-27) mEq/L Sodium (136-145) mEq/L Potassium (3.5-5.1) mEq/L Chloride (98-107) mEq/L Carbon Dioxide (23-29) mEq/L BUN (8-23) mg/dL Creatinine (0.60-1.20) mg/dL Est GFR ( Amer) (> 60) Est GFR (Non-Af Amer) (> 60) BUN/Creatinine Ratio (6-26) Glucose (70-105) mg/dL Calculated Osmolality (280-300) Lactic Acid (0.5-2.2) mmol/L Calcium (8.6-10.3) mg/dL Total Bilirubin 0.5 (0.3-1.0) mg/dL Direct Bilirubin 0.1 (0.0-0.2) mg/dL Indirect Bilirubin 0.4 (0.0-1.2) mg/dL AST 46 H (13-39) Units/L ALT 44 (7-52) Units/L Alkaline Phosphatase 86 (34-104) Units/L Troponin I < 0.03 (< 0.04) ng/mL Serum Total Protein 7.4 (6.4-8.9) g/dL Albumin 3.9 (3.5-5.7) g/dL Globulin 3.5 (2.4-3.5) g/dL Albumin/Globulin Ratio 1.1 (1.1-2.2) Lipase 79 (11-82) Units/L Urine Color Dark Yellow (Yellow) Urine Clarity Clear (Clear) Urine pH 5.5 (5.0-8.0) pH Units Ur Specific [employer] 1.029 H (1.010-1.025) Urine Protein 30 H (Neg-Trace) mg/dL Urine Glucose (UA) Normal (Normal) mg/dL Urine Ketones Trace H (Negative) mg/dL Urine Blood Negative (Negative) Urine Nitrite Positive A (Negative) Urine Bilirubin Negative (Negative) Urine Urobilinogen Normal (Normal) mg/dL Ur Leukocyte Esterase Trace H (Negative) Urine Microscopic RBC 0-3 (0-3) per hpf Urine Microscopic WBC 5-15 H (0-3) per hpf Ur Squamous Epith Cells Many H (None-Few) per lpf Urine Bacteria Moderate H (None-Few) per hpf Hyaline Casts Moderate H (None-Few) per lpf Ur Culture Indicated? NO. A (NO) - Radiology Data Radiology results reviewed: Yes I reviewed the patient's radiology results. - EKG Data EKG attestation: Yes I reviewed and interpreted this EKG. EKG results narrative: EKG shows sinus tachycardia 106. Patient has NE interval 163. QRS 118. QTC 498. Patient has no significant ST elevations. No changes from previous EKG of 10/05/17.
[2018-01-21 12:09] LABS: VBG HCO3 27 mEq/L (21-27); VBG PCO2 46 mmHg (41-51); VBG PH 7.39 pH Units (7.32-7.42); VBG PO2 143 mmHg (25-50)
[2018-01-21 12:22] LABS: BUN/Creatinine Ratio 18 (6-26); Blood Urea Nitrogen 16 mg/dL (8-23); Calcium 9.4 mg/dL (8.6-10.3); Carbon Dioxide 25 mEq/L (23-29); Chloride 101 mEq/L (98-107); Glucose 197 mg/dL (70-105); Osmolality,Calculated 291 (280-300); Potassium 3.6 mEq/L (3.5-5.1); Sodium 137 mEq/L (136-145); eGFR For Non-African Americans > 60 (> 60)
[2018-01-21 12:24] LABS: Alanine Aminotransferase 44 Units/L (7-52); Albumin 3.9 g/dL (3.5-5.7); Albumin/Globulin Ratio 1.1 (1.1-2.2); Alkaline Phosphatase 86 Units/L (34-104); Aspartate Amino Transferase 46 Units/L (13-39); Bilirubin,Direct 0.1 mg/dL (0.0-0.2); Bilirubin,Indirect 0.4 mg/dL (0.0-1.2); Bilirubin,Total 0.5 mg/dL (0.3-1.0); Globulin 3.5 g/dL (2.4-3.5); Lipase 79 Units/L (11-82); Total Protein 7.4 g/dL (6.4-8.9); Troponin I < 0.03 ng/mL (< 0.04)
[2018-01-21] MEDS ORDERED: Isovue-370 500 ML INFUS..BTL IV ONE (12:36)
[2018-01-21 13:28] LABS: Bilirubin,Urine Negative (Negative); Blood,Urine Negative (Negative); Clarity,Urine Clear (Clear); Color,Urine Dark Yellow (Yellow); Glucose,Urine (UA) Normal (Normal); Ketones,Urine Trace mg/dL (Negative); Leukocyte Esterase,Urine Trace (Negative); Nitrite,Urine Positive (Negative); PH,Urine 5.5 pH Units (5.0-8.0); Protein,Urine 30 mg/dL (Neg-Trace); Specific Gravity,Urine 1.029 (1.010-1.025); Urobilinogen,Urine Normal (Normal)
[2018-01-21 13:30] LABS: Bacteria,Urine Moderate per hpf (None-Few); Hyaline Casts,Urine Moderate per lpf (None-Few); Squamous Epithelial Cell,Urine Many per lpf (None-Few)
[2018-01-21 13:41] LABS: RBC,Urine 0-3 per hpf (0-3)
[2018-01-21] MEDS ORDERED: cefTRIAXone 1,000 MG in Water for inj. (sterile) 20 ML 10 ML IVP ONE (14:21)
[2018-01-21] MEDS ORDERED: Ondansetron 4 MG/2 ML VIAL IVP PRN (15:01)
[2018-01-21] MEDS ORDERED: *HR* Dextrose 50 % in Water (Syg) 50 ML SYRINGE IVP PRN ×2 (15:03→15:09)
[2018-01-21] MEDS ORDERED: Naloxone 0.4 MG/ML INJ IVP PRN (15:03)
[2018-01-21] MEDS ORDERED: Dextrose Gel 15 GM/37.5 ML TUBE PO PRN ×4 (15:03→15:09)
[2018-01-21] MEDS ORDERED: D5% in Water 1,000 ML IVC PRN ×2 (15:03→15:09)
--- NOTE | 2018-01-21 16:00 | Internal Med History&Physical ---
Date of Encounter: 01/21/18 Time of Encounter: 15:53 Internal Medicine - H&P: HPI Chief complaint: nausea, vomiting Admitted From: Home Plans for Post Hospital Care: Home History of present illness: Ms. Carl is a 62 year old female with a PMH of asthma, gerd, copd, dm, and htn who presents with a 1-day h/o dizziness, nausea and vomiting. She reports that the N/V began with breakfast this morning. She denies any exotic travel, exotic foods, ill contacts or assiciated diarrhea. She denies any aggravating or alleviating factors. She is also reporting dysuria, lower abdominal pain, urinary frequency, fevers, and chills stating "I have a bladder infection". On presentation to the ED she is tachycardic, tachypneic, has leukocytosis, and has lactic acidosis. UA with positive nitrates and leukocytes esterase. She likely has sepsis 2/2 UTI but she is being admitted for observation to rule out other causes of N/V. CT abdomen and pelvis reveals endometrial stripe thickening; otherwise no acute process and no SBO. Past Med Surg Social Fam HX - Past Medical History Medical history: asthma, CHF, COPD, diabetes, GERD, hypertension Psychiatric history: no psych history - Past Surgical History Surgical History: - Social History Smoking Status: Former smoker Smokeless Tobacco Status: No Alcohol use: none Drug use: none - Family History Mother Living Status: Still Living Hx Family Endocrine Disorder: Yes (DM) Father Living Status: Still Living Hx Family Respiratory Disorders: Yes (blood clot) Internal Medicine - H&P: Meds Albuterol Sulfate [Ventolin Hfa] 2 puff IH Q6H PRN 10/05/17 [History] Aspirin Enteric Coated [Aspirin EC] 81 mg PO DAILY 10/05/17 [History] Atorvastatin Calcium [Lipitor] 80 mg PO HS 10/05/17 [History] Docusate [Colace] 100 mg PO DAILY 10/05/17 [History] Insulin Regular, Human [Humulin R U-500 Kwikpen] 70 unit SQ BID 10/05/17 [ History] Liraglutide [Victoza 3-Joel] 1.8 mg SQ DAILY 10/05/17 [History] Losartan Potassium [Cozaar] 50 mg PO DAILY 10/05/17 [History] Metoprolol [Lopressor] 25 mg PO BID 10/05/17 [History] Montelukast [Singulair] 10 mg PO HS 10/05/17 [History] Multivitamin [One Daily Essential] 1 tab PO DAILY 10/05/17 [History] Potassium Chloride [K-Tab ER] 20 meq PO DAILY 10/05/17 [History] Sennosides/Docusate Sodium [Senna Plus] 1 each PO DAILY 10/05/17 [History] raNITIdine HCl [Zantac] 150 mg PO HS 10/05/17 [History] Bumetanide [Bumex] 1 mg PO BID 01/21/18 [History] Loratadine [Claritin] 10 mg PO DAILY 01/21/18 [History] Pantoprazole Sodium 40 mg PO BID 01/21/18 [History] Torsemide [Demadex] 20 mg PO DAILY 01/21/18 [History] 3 Allergy/AdvReac Type Severity Reaction Status Date / Time Penicillins [PCN] Allergy Hives Verified 01/21/18 15:36 All Systems PM: A 10-system review of systems was performed and is negative for pertinent findings except as documented above in the HPI. - Constitutional Constitutional: as per HPI - Cardiovascular Cardiovascular ROS IM: as per HPI - Respiratory Respiratory: as per HPI - Gastrointestinal Gastrointestinal: as per HPI, abdominal pain - Genitourinary Genitourinary: as per HPI - Musculoskeletal Musculoskeletal ROS IM: no numbness, no tingling - Integumentary Integumentary IM: no rash, no unusual bruising - Constitutional Vitals: Temp Pulse Resp BP Pulse Ox 99.1 F 110 20 141/74 96 01/21/18 11:52 01/21/18 15:35 01/21/18 15:35 01/21/18 15:35 01/21/18 15:35 General appearance: Present: morbidly obese Exam: . - Head Head exam: Present: atraumatic, normocephalic - Eye Eye exam: Present: PERRL - Neck Neck exam general surgery: Present: supple, trachea midline. Absent: lymphadenopathy - Respiratory Respiratory exam: Present: decreased breath sounds, CTAB, tachypnea. Absent: accessory muscle use, chest wall tenderness, prolonged expiratory phase, rales, respiratory distress, rhonchi, wheezes - Cardiovascular Cardiovascular exam: Present: RRR, +S1, +S2, tachycardia. Absent: diastolic murmur, gallop, rubs, systolic murmur - GI/Abdominal GI/Abdominal exam: Present: normal bowel sounds, soft, no peritoneal signs. Absent: distended, firm, guarding, tenderness - Extremities Exam Extremities exam: Present: warm, radial pulses palpable and symmetrical. Absent : calf tenderness, cyanotic, pedal edema - Neurological Exam Neurological exam: Present: alert, oriented X3, pronater drift. Absent: facial droop, speech deficit - Skin Skin exam: Present: dry, intact Internal Med - H&P Results - Labs CBC & Chem 7: 01/21/18 11:53 01/21/18 11:53 Labs: Short CBC 01/21/18 Range/Units 11:53 WBC 11.9 H (4.3-11.1) K/mcL Hgb 13.6 (11.5-15.4) g/dL Hct 43.2 (35.3-44.9) % Plt Count 178 (140-400) K/mcL Neutrophils # 5.4 (1.6-8.9) K/mcL BMP 01/21/18 11:53 Sodium 137 Potassium 3.6 Chloride 101 Carbon Dioxide 25 BUN 16 Creatinine 0.91 Glucose 197 H Calcium 9.4 Cardiac Enzymes 01/21/18 Range/Units 11:53 Troponin I < 0.03 (< 0.04) ng/mL Liver Function 01/21/18 Range/Units 11:53 Total Bilirubin 0.5 (0.3-1.0) mg/dL Direct Bilirubin 0.1 (0.0-0.2) mg/dL AST 46 H (13-39) Units/L ALT 44 (7-52) Units/L Alkaline Phosphatase 86 (34-104) Units/L Albumin 3.9 (3.5-5.7) g/dL Urine 01/21/18 Range/Units 13:20 Urine Color Dark Yellow (Yellow) Urine Clarity Clear (Clear) Urine pH 5.5 (5.0-8.0) pH Units Ur Specific [employer] 1.029 H (1.010-1.025) Urine Protein 30 H (Neg-Trace) mg/dL Urine Glucose (UA) Normal (Normal) mg/dL - ABG Interpretation ABG results: 01/21/18 12:06 VBG pH 7.39 VBG pCO2 46 VBG pO2 143 H VBG HCO3 27 - Impressions ITS Impressions Chest X-Ray 01/21/18 11:40 IMPRESSION: Low lung volume portable chest with mild pulmonary vascular congestion accentuated by technique and low lung volumes. No focal consolidation noted. D/ / 01/21/2018 12:28:20 Yayo Borrego MD / tran Interpreting Provider: Yayo Borrego MD Impressions Chest X-Ray 01/21/18 11:40 IMPRESSION: Low lung volume portable chest with mild pulmonary vascular congestion accentuated by technique and low lung volumes. No focal consolidation noted. D/ / 01/21/2018 12:28:20 Yayo Borrego MD / tran Interpreting Provider: Yayo Borrego MD - Assessment and plan (1) Sepsis Current Visit: Yes Status: Resolved Assessment and plan: sepsis 2/2 UTI; no septic shock- reporting dysuria, frequency, foul smelling dark urine as well as nausea and vomiting UA positive for nitrates and leukocyte esterase positive SIRS criteria tachycardia, tachypnea, leukocytosis, and lactic acidosis Treat with rocephin, received 1 dose in the ED and tolerated without difficulty IVF antiemetics for N/V NPO DVT prophylaxis with lovenox repeat CBC, BMP send urine for cultures rule out additional etiology Qualifiers: Sepsis type: sepsis due to unspecified organism Qualified Code(s): A41.9 - Sepsis, unspecified organism (2) UTI (urinary tract infection) Current Visit: Yes Status: Acute Qualifiers: Urinary tract infection type: site unspecified Hematuria presence: without hematuria Qualified Code(s): N39.0 - Urinary tract infection, site not specified (3) COPD (chronic obstructive pulmonary disease) Current Visit: No Status: Chronic Assessment and plan: per hx resume COPD meds Qualifiers: COPD type: unspecified COPD Qualified Code(s): J44.9 - Chronic obstructive pulmonary disease, unspecified (4) HTN (hypertension) Current Visit: No Status: Chronic Assessment and plan: per hx cont anti-HTN medications Qualifiers: Hypertension type: essential hypertension Qualified Code(s): I10 - Essential (primary) hypertension (5) Morbid obesity Current Visit: No Status: Chronic Assessment and plan: discussed lifestyle modifications, diet and weight-loss (6) Diabetes Current Visit: No Status: Acute Assessment and plan: per hx, start LSSIC Qualifiers: Diabetes mellitus type: type 2 Diabetes mellitus residential insulin use: with residential use Diabetes mellitus complication status: with unspecified complications Qualified Code(s): E11.8 - Type 2 diabetes mellitus with unspecified complications; 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 Fatty infiltration of the liver. Few foci of nondependent gas in the nondependent urinary bladder which could be related to recent instrumentation. Correlation to exclude an infectious process is recommended. Prominence of the thickness of the endometrial stripe. Pelvic ultrasound is recommended to exclude the possibility of endometrial carcinoma. Distal colonic diverticulosis without evidence of active inflammation. 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
[2018-01-21] MEDS: 0.9 % Sodium Chloride 1,000 ML IVC SCH (18:04)
[2018-01-21] MEDS: Insulin LISPRO 300 UNITS/3 ML VIAL SQ SCH (18:07)
[2018-01-21] MEDS: Famotidine 20 MG TABLET PO SCH (20:08)
[2018-01-21] MEDS: Acetaminophen 325 MG TABLET PO PRN (20:09)
[2018-01-21] MEDS ORDERED: Bumetanide 1 MG TABLET PO SCH (21:00)
[2018-01-22] MEDS: Insulin LISPRO 300 UNITS/3 ML VIAL SQ SCH ×5 (01:48→23:24)
[2018-01-22] MEDS: 0.9 % Sodium Chloride 1,000 ML IVC SCH (04:15)
[2018-01-22 04:21] LABS: Basophils # 0.1 K/mcL (0.0-0.2); Basophils % 0.7 %; Eosinophils # 0.2 K/mcL (0.0-0.6); Eosinophils % 2.9 %; Immature Granulocytes % 0.2 % (0-4); Lymphocytes # 3.1 K/mcL (0.6-4.6); Lymphocytes % 38.1 %; Mean Corpuscular HGB Conc 31.4 g/dL (31.6-35.5); Mean Corpuscular Hemoglobin 23.3 pg (28.0-33.3); Mean Corpuscular Volume 74.4 fL (83.0-100.0); Mean Platelet Volume 11.3 fL (9.4-12.4); Monocytes % 12.2 %; Neutrophils # 3.7 K/mcL (1.6-8.9); Platelet Count 161 K/mcL (140-400); Red Blood Count 4.97 M/mcL (3.82-4.97); Red Cell Distribution Width 16.1 % (11.5-14.5); Segmented Neutrophils % 45.9 %
[2018-01-22 04:25] LABS: Hemoglobin 11.6 g/dL (11.5-15.4)
[2018-01-22 04:39] LABS: BUN/Creatinine Ratio 18 (6-26); Blood Urea Nitrogen 13 mg/dL (8-23); Calcium 8.5 mg/dL (8.6-10.3); Carbon Dioxide 29 mEq/L (23-29); Chloride 106 mEq/L (98-107); Glucose 106 mg/dL (70-105); Osmolality,Calculated 291 (280-300); Potassium 3.9 mEq/L (3.5-5.1); Sodium 140 mEq/L (136-145); eGFR For Non-African Americans > 60 (> 60)
[2018-01-22] MEDS: *HR* Enoxaparin 40 MG/0.4 ML SYRINGE SQ SCH (05:56)
[2018-01-22] MEDS: Acetaminophen 325 MG TABLET PO PRN (05:56)
--- NOTE | 2018-01-22 09:23 | Internal Med Progress Note ---
Hospitalist Progress Note - Encounter Date of Encounter: 01/22/18 Time of Encounter: 09:21 - Subjective Interval History: seen at bedside, no acute changes, denies any n/v. Reports that she is feeling much better. - Exam Vitals: Temp Pulse Resp BP Pulse Ox 98.3 F 99 18 97/61 96 01/22/18 05:42 01/22/18 05:42 01/22/18 05:42 01/22/18 05:42 01/22/18 05:42 Exam: . - Assessment and Plan (1) Sepsis Current Visit: Yes Status: Resolved Assessment and Plan: sepsis 2/2 UTI; no septic shock- reporting dysuria, frequency, foul smelling dark urine as well as nausea and vomiting UA positive for nitrates and leukocyte esterase positive SIRS criteria tachycardia, tachypnea, leukocytosis, and lactic acidosis sepsis has resolved (2) UTI (urinary tract infection) Current Visit: Yes Status: Acute Assessment and Plan: UTI 01/22--no leukocytosis; wbc 8.1, no longer tachypneic Cont rocephin, received 1 dose in the ED and tolerated without difficulty IVF antiemetics for N/V clear liq diet adv as ruby DVT prophylaxis with lovenox repeat CBC, BMP f/u cultures; pending (3) COPD (chronic obstructive pulmonary disease) Current Visit: No Status: Chronic Assessment and Plan: per hx resume COPD meds (4) HTN (hypertension) Current Visit: No Status: Chronic Assessment and Plan: per hx; mild hypotension this morning; cont anti-HTN meds, patient asymptomatic, closely monitor (5) Morbid obesity Current Visit: No Status: Chronic Assessment and Plan: discussed lifestyle modifications, diet and weight-loss (6) Diabetes Current Visit: No Status: Acute Assessment and Plan: per hx, start LSSIC (7) Elevated lactic acid level Current Visit: Yes Status: Resolved Assessment and Plan: repeat lactate 1.9 (8) Nausea and vomiting Current Visit: Yes Status: Resolved Assessment and Plan: denies any episodes of emesis cont antiemetics PRN increase diet to clears (9) Increased endometrial stripe thickness Current Visit: Yes Status: Acute Assessment and Plan: incidental finding on abdomen and pelvis CT; patient made aware; 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 -order pelvic US now -consult DRIER HELPER as appropriate DVT Prophylaxis: lovenox - Time Spent with Patient Total time spent is greater than 50% in coordination of care (as documented) at patient's floor/unit and/or counseling patient: less than 15 minutes Plan of Care Discussed with: patient Internal Medicine: Result - Labs CBC & Chem 7: 01/22/18 03:45 01/22/18 03:45 Labs: Short CBC 01/22/18 Range/Units 03:45 WBC 8.1 (4.3-11.1) K/mcL Hgb 11.6 D (11.5-15.4) g/dL Hct 37.0 (35.3-44.9) % Plt Count 161 (140-400) K/mcL Neutrophils # 3.7 (1.6-8.9) K/mcL BMP 01/22/18 03:45 Sodium 140 Potassium 3.9 Chloride 106 Carbon Dioxide 29 BUN 13 Creatinine 0.71 Glucose 106 H Calcium 8.5 L Consult Discharge Plan - Plan Referrals: Abdulkadir Avina DO [Primary Care Provider] - (1) Sepsis Qualifiers: Sepsis type: sepsis due to unspecified organism Qualified Code(s): A41.9 - Sepsis, unspecified organism (2) UTI (urinary tract infection) Qualifiers: Urinary tract infection type: site unspecified Hematuria presence: without hematuria Qualified Code(s): N39.0 - Urinary tract infection, site not specified (3) COPD (chronic obstructive pulmonary disease) Qualifiers: COPD type: unspecified COPD Qualified Code(s): J44.9 - Chronic obstructive pulmonary disease, unspecified (4) HTN (hypertension) Qualifiers: Hypertension type: essential hypertension Qualified Code(s): I10 - Essential (primary) hypertension (6) Diabetes Qualifiers: Diabetes mellitus type: type 2 Diabetes mellitus care home insulin use: with care home use Diabetes mellitus complication status: with unspecified complications Qualified Code(s): E11.8 - Type 2 diabetes mellitus with unspecified complications; 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
[2018-01-22] MEDS: Aspirin Enteric Coated 81 MG Tablet PO SCH (10:44)
[2018-01-22] MEDS: Sennosides/Docusate Sodium TABLET PO SCH (10:44)
[2018-01-22] MEDS: Torsemide 20 MG TABLET PO SCH (10:45)
[2018-01-22] MEDS: cefTRIAXone 1,000 MG in Water for inj. (sterile) 20 ML 10 ML IVP SCH (10:45)
[2018-01-22] MEDS ORDERED: Naloxone 0.4 MG/ML INJ IVP PRN (13:21)
[2018-01-22] MEDS: Famotidine 20 MG TABLET PO SCH (21:25)
[2018-01-23 06:02] LABS: Basophils # 0.1 K/mcL (0.0-0.2); Basophils % 0.7 %; Eosinophils # 0.3 K/mcL (0.0-0.6); Eosinophils % 4.8 %; Hematocrit 37.5 % (35.3-44.9); Hemoglobin 11.7 g/dL (11.5-15.4); Immature Granulocytes % 0.3 % (0-4); Lymphocytes # 2.9 K/mcL (0.6-4.6); Lymphocytes % 42.4 %; Mean Corpuscular HGB Conc 31.2 g/dL (31.6-35.5); Mean Corpuscular Hemoglobin 23.2 pg (28.0-33.3); Mean Corpuscular Volume 74.4 fL (83.0-100.0); Mean Platelet Volume 11.2 fL (9.4-12.4); Monocytes # 0.9 K/mcL (0.0-1.3); Monocytes % 12.6 %; Neutrophils # 2.7 K/mcL (1.6-8.9); Platelet Count 160 K/mcL (140-400); Red Blood Count 5.04 M/mcL (3.82-4.97); Red Cell Distribution Width 16.4 % (11.5-14.5); Segmented Neutrophils % 39.2 %
[2018-01-23] MEDS: Insulin LISPRO 300 UNITS/3 ML VIAL SQ SCH ×4 (06:04→16:55)
[2018-01-23] MEDS: *HR* Enoxaparin 40 MG/0.4 ML SYRINGE SQ SCH (06:05)
[2018-01-23 06:18] LABS: BUN/Creatinine Ratio 15 (6-26); Blood Urea Nitrogen 13 mg/dL (8-23); Calcium 8.7 mg/dL (8.6-10.3); Carbon Dioxide 30 mEq/L (23-29); Chloride 103 mEq/L (98-107); Glucose 141 mg/dL (70-105); Osmolality,Calculated 290 (280-300); Potassium 4.2 mEq/L (3.5-5.1); Sodium 139 mEq/L (136-145); eGFR For Non-African Americans > 60 (> 60)
[2018-01-23] MEDS: Torsemide 20 MG TABLET PO SCH ×2 (09:41→10:22)
[2018-01-23] MEDS: Sennosides/Docusate Sodium TABLET PO SCH (09:41)
[2018-01-23] MEDS: Aspirin Enteric Coated 81 MG Tablet PO SCH (09:42)
[2018-01-23] MEDS: cefTRIAXone 1,000 MG in Water for inj. (sterile) 20 ML 10 ML IVP SCH (10:20)
--- NOTE | 2018-01-23 14:19 | Internal Med Progress Note ---
Hospitalist Progress Note - Encounter Date of Encounter: 01/23/18 Time of Encounter: 08:45 - Subjective Interval History: she has npo complaints, pain free, denies dysuria, is feeling much better tolerating diet denies fever, chill,s N/V/D, chest pain or SOB - Exam Vitals: Temp Pulse Resp BP Pulse Ox 98.2 F 82 16 98/59 97 01/23/18 10:38 01/23/18 10:38 01/23/18 10:38 01/23/18 10:38 01/23/18 10:38 Exam: General: Patient is alert, oriented, no acute distress, morbidly obese Head: atraumatic, normocephalic, Eye: normal appearance, PERRL, no scleral icterus, no conjunctival injection ENT: mucous membranes moist, normal external ear exam, excess facial hair Neck: normal inspection, trachea midline, full ROM, no carotid bruits Chest: normal inspection, symmetric chest rise Respiratory: Good respiratory effort. decreased breath sounds secondary to body habitus Bilateral breath sounds are clear without wheezing, crackles, or rhonchi. Cardiovascular: decreased heart sounds secondary to body habitus Regular rate and rhythm. s1 and s2 No clicks, rubs, gallops, or murmors. Abdomen: Bowel sounds present normoactive x-4 quadrants. Abdomen is soft, nondistended. no Epigastric tenderness. No guarding or rebound. No organomegaly noted, obese, no CVA tenderness musculoskeletal: Spontaneously moving all extremities. no edema, no calf tenderness Skin: warm, dry, intact. Neuro: Alert and oriented x4. Sensation light touch intact. Cranial nerves 2- 12 is intact. Not aphasic, no focal deficit Psych: Patient's affect is normal - Assessment and Plan (1) UTI (urinary tract infection) Current Visit: Yes Status: Acute Assessment and Plan: UTI 01/22--no leukocytosis; wbc 8.1, no longer tachypneic urine cx growing E.coli will continue rocephin patient does not feel as though she can tolerate goig home today. 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 Endometrial stripe is not well evaluated secondary to body habitus but measures at least 10 mm, abnormal in a postmenopausal patient. Diagnosis of exclusion is endometrial carcinoma. Tissue sampling is recommended. 2. Nonvisualization of the bilateral ovaries. patient is aware of the findings to follow up with OBGY as OP for biopsy and further evaluation PIR was informed to obtain appointment (3) Sepsis Current Visit: Yes Status: Resolved Assessment and Plan: sepsis 2/2 UTI; no septic shock- reporting dysuria, frequency, foul smelling dark urine as well as nausea and vomiting UA positive for nitrates and leukocyte esterase positive SIRS criteria tachycardia, tachypnea, leukocytosis, and lactic acidosis sepsis has resolved (4) COPD (chronic obstructive pulmonary disease) Current Visit: No Status: Chronic Assessment and Plan: per hx resume COPD meds (5) HTN (hypertension) Current Visit: No Status: Chronic Assessment and Plan: continue home mediations (6) Morbid obesity Current Visit: No Status: Chronic Assessment and Plan: discussed lifestyle modifications, diet and weight-loss (7) Diabetes Current Visit: No Status: Acute Assessment and Plan: will continue finger stickss adn LDSSI DVT Prophylaxis: lovenox - Time Spent with Patient Total time spent is greater than 50% in coordination of care (as documented) at patient's floor/unit and/or counseling patient: Internal Medicine: Result - Labs CBC & Chem 7: 01/23/18 05:29 01/23/18 05:29 Labs: Short CBC 01/23/18 Range/Units 05:29 WBC 6.9 (4.3-11.1) K/mcL Hgb 11.7 (11.5-15.4) g/dL Hct 37.5 (35.3-44.9) % Plt Count 160 (140-400) K/mcL Neutrophils # 2.7 (1.6-8.9) K/mcL BMP 01/23/18 05:29 Sodium 139 Potassium 4.2 Chloride 103 Carbon Dioxide 30 H BUN 13 Creatinine 0.85 Glucose 141 H Calcium 8.7 - Impressions Impressions Pelvis Ultrasound 01/22/18 14:00 IMPRESSION: 1. Endometrial stripe is not well evaluated secondary to body habitus but measures at least 10 mm, abnormal in a postmenopausal patient. Diagnosis of exclusion is endometrial carcinoma. Tissue sampling is recommended. 2. Nonvisualization of the bilateral ovaries. D/ / 01/22/2018 15:45:24 Jaja Haney MD / jim Interpreting Provider: Jaja Haney MD Consult Discharge Plan - Plan Referrals: Mony Mccurdy DO [Resident] - 01/26/18 10:20 am (1) UTI (urinary tract infection) Qualifiers: Urinary tract infection type: site unspecified Hematuria presence: without hematuria Qualified Code(s): N39.0 - Urinary tract infection, site not specified (3) Sepsis Qualifiers: Sepsis type: sepsis due to unspecified organism Qualified Code(s): A41.9 - Sepsis, unspecified organism (4) COPD (chronic obstructive pulmonary disease) Qualifiers: COPD type: unspecified COPD Qualified Code(s): J44.9 - Chronic obstructive pulmonary disease, unspecified (5) HTN (hypertension) Qualifiers: Hypertension type: essential hypertension Qualified Code(s): I10 - Essential (primary) hypertension (7) Diabetes Qualifiers: Diabetes mellitus type: type 2 Diabetes mellitus halfway insulin use: with halfway use Diabetes mellitus complication status: with unspecified complications Qualified Code(s): E11.8 - Type 2 diabetes mellitus with unspecified complications; 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
[2018-01-23] MEDS: Famotidine 20 MG TABLET PO SCH (20:53)
[2018-01-23] MEDS ORDERED: Insulin LISPRO 300 UNITS/3 ML VIAL SQ SCH (21:00)
[2018-01-24] MEDS: *HR* Enoxaparin 40 MG/0.4 ML SYRINGE SQ SCH (06:20)
[2018-01-24 07:20] VITALS: BP 106/68
--- NOTE | 2018-01-24 07:39 | Electrocardiograph Report ---
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
[2018-01-24] MEDS: Sennosides/Docusate Sodium TABLET PO SCH (07:49)
[2018-01-24] MEDS: Torsemide 20 MG TABLET PO SCH (07:49)
[2018-01-24] MEDS: cefTRIAXone 1,000 MG in Water for inj. (sterile) 20 ML 10 ML IVP SCH (07:50)
[2018-01-24] MEDS: Aspirin Enteric Coated 81 MG Tablet PO SCH (07:50)
[2018-01-24] MEDS: Insulin LISPRO 300 UNITS/3 ML VIAL SQ SCH ×2 (07:51→11:58)
[2018-01-24 08:14] LABS: Basophils # 0.1 K/mcL (0.0-0.2); Basophils % 0.7 %; Eosinophils # 0.3 K/mcL (0.0-0.6); Eosinophils % 4.4 %; Hematocrit 36.6 % (35.3-44.9); Hemoglobin 11.2 g/dL (11.5-15.4); Immature Granulocytes % 0.3 % (0-4); Lymphocytes # 3.2 K/mcL (0.6-4.6); Lymphocytes % 46.7 %; Mean Corpuscular HGB Conc 30.6 g/dL (31.6-35.5); Mean Corpuscular Hemoglobin 22.5 pg (28.0-33.3); Mean Corpuscular Volume 73.5 fL (83.0-100.0); Mean Platelet Volume 11.4 fL (9.4-12.4); Monocytes # 0.7 K/mcL (0.0-1.3); Monocytes % 10.7 %; Neutrophils # 2.5 K/mcL (1.6-8.9); Platelet Count 169 K/mcL (140-400); Red Blood Count 4.98 M/mcL (3.82-4.97); Red Cell Distribution Width 16.4 % (11.5-14.5); Segmented Neutrophils % 37.2 %
[2018-01-24 08:29] LABS: BUN/Creatinine Ratio 17 (6-26); Blood Urea Nitrogen 13 mg/dL (8-23); Calcium 8.8 mg/dL (8.6-10.3); Carbon Dioxide 29 mEq/L (23-29); Chloride 104 mEq/L (98-107); Glucose 163 mg/dL (70-105); Osmolality,Calculated 290 (280-300); Potassium 4.2 mEq/L (3.5-5.1); Sodium 138 mEq/L (136-145); eGFR For Non-African Americans > 60 (> 60)
--- NOTE | 2018-01-24 10:08 | Physician Discharge Referral ---
Home Health/Hosp Referral Info Provider in Charge Post Discharge: PCP - Diagnosis (1) UTI (urinary tract infection) Priority: Primary Status: Acute (2) Increased endometrial stripe thickness Priority: Secondary Status: Acute (3) Sepsis Priority: Secondary Status: Resolved (4) COPD (chronic obstructive pulmonary disease) Priority: Secondary Status: Chronic (5) HTN (hypertension) Priority: Secondary Status: Chronic (6) Morbid obesity Priority: Secondary Status: Chronic (7) Diabetes Priority: Secondary Status: Acute - Respiratory Orders Smoking Cessation: Smoking cessation has been advised. For more information, call the [place] Tobacco Quit Line at 3-139-UUQX-NOW. - Activity Activity Orders: Ambulate - Services Needed Following services are medically necessary services: Home Health Aide, Physical Therapy - Transfer Medications Home Medications: Albuterol Sulfate [Ventolin Hfa] 2 puff IH Q6H PRN 10/05/17 [History] Aspirin Enteric Coated [Aspirin EC] 81 mg PO DAILY 10/05/17 [History] Atorvastatin Calcium [Lipitor] 80 mg PO HS 10/05/17 [History] Docusate [Colace] 100 mg PO DAILY 10/05/17 [History] Insulin Regular, Human [Humulin R U-500 Kwikpen] 70 unit SQ BID 10/05/17 [ History] Liraglutide [Victoza 3-Joel] 1.8 mg SQ DAILY 10/05/17 [History] Losartan Potassium [Cozaar] 50 mg PO DAILY 10/05/17 [History] Metoprolol [Lopressor] 25 mg PO BID 10/05/17 [History] Montelukast [Singulair] 10 mg PO HS 10/05/17 [History] Multivitamin [One Daily Essential] 1 tab PO DAILY 10/05/17 [History] Potassium Chloride [K-Tab ER] 20 meq PO DAILY 10/05/17 [History] Sennosides/Docusate Sodium [Senna Plus] 1 each PO DAILY 10/05/17 [History] raNITIdine HCl [Zantac] 150 mg PO HS 10/05/17 [History] Bumetanide [Bumex] 1 mg PO BID 01/21/18 [History] Loratadine [Claritin] 10 mg PO DAILY 01/21/18 [History] Pantoprazole Sodium 40 mg PO BID 01/21/18 [History] Torsemide [Demadex] 20 mg PO DAILY 01/21/18 [History] Allergies/Adverse Reactions: 3 Allergy/AdvReac Type Severity Reaction Status Date / Time Penicillins [PCN] Allergy Hives Verified 01/21/18 15:36 Certification: Further, I certify that my clinical findings support that this patient is homebound (i.e. absences from home require considerable and taxing effort and are for medical reasons or moravian services or infrequently or short duration when for other reasons) because: Homebound Reason: Patient requires assistance of a person or device to safely leave home Attestation: My signature below is to certify that this patient is under my care and that I, or nurse practitioner, or a physician's bus assistant working with me, has a face-to -face encounter with this patient.
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
== END 2018-01-24 13:51 | disposition home health service (06) | DRG 720 ==
LOC: 3ANU 11:36 → EMEROOARM 11:36 → 3ANU 17:47 → SUATTDRO 01-22 13:48
PROVIDERS: ADMIT Internal Medicine; ATTEND Internal Medicine

== ENCOUNTER 2019-07-14 14:46 | Inpatient (IN) ==
[2019-07-14] MEDS ORDERED: Aspirin 325 MG TABLET PO ONE (15:00)
[2019-07-14] MEDS ORDERED: Ipratropium/Albuterol Neb 3 ML IH ONE (15:00)
[2019-07-14] MEDS ORDERED: Isovue-370 500 ML BOTTLE IVP ONE (15:00)
[2019-07-14 15:34] LABS: Bilirubin,Urine Negative (Negative); Blood,Urine Negative (Negative); Clarity,Urine Cloudy (Clear); Color,Urine Yellow (Yellow); Glucose,Urine (UA) >=1000 mg/dL (Normal); Ketones,Urine Negative (Negative); Leukocyte Esterase,Urine Negative (Negative); Nitrite,Urine Negative (Negative); Protein,Urine Negative (Neg-Trace); Specific Gravity,Urine > 1.030 (1.010-1.025)
[2019-07-14 15:36] LABS: Bacteria,Urine Many per hpf (None-Few); Hyaline Casts,Urine None Seen per lpf (None-Few); Squamous Epithelial Cell,Urine Many per lpf (None-Few)
[2019-07-14 15:47] LABS: RBC,Urine 0-3 per hpf (0-3)
[2019-07-14 16:00] LABS: Basophils % 0.6 %; Eosinophils # 0.2 K/mcL (0.0-0.6); Eosinophils % 2.1 %; Hematocrit 40.7 % (35.3-44.9); Hemoglobin 13.2 g/dL (11.5-15.4); Immature Granulocytes % 0.4 % (0-4); Lymphocytes # 1.3 K/mcL (0.6-4.6); Lymphocytes % 18.2 %; Mean Corpuscular HGB Conc 32.4 g/dL (31.6-35.5); Mean Corpuscular Hemoglobin 22.8 pg (28.0-33.3); Mean Corpuscular Volume 70.3 fL (83.0-100.0); Mean Platelet Volume 11.4 fL (9.4-12.4); Monocytes % 21.4 %; Platelet Count 188 K/mcL (140-400); Red Blood Count 5.79 M/mcL (3.82-4.97); Segmented Neutrophils % 57.3 %; White Blood Count 7.2 K/mcL (4.3-11.1)
[2019-07-14 16:01] LABS: Monocytes # 1.5 K/mcL (0.0-1.3); Neutrophils # 4.1 K/mcL (1.6-8.9)
[2019-07-14 16:16] LABS: Hypochromasia Present (Not Present); Large Platelets Present (Not Present); Platelet Estimate Normal (Normal)
[2019-07-14 16:20] LABS: Alanine Aminotransferase 33 Units/L (7-52); Albumin 3.7 g/dL (3.5-5.7); Albumin/Globulin Ratio 1.1 (1.1-2.2); Alkaline Phosphatase 72 Units/L (34-104); Aspartate Amino Transferase 48 Units/L (13-39); BUN/Creatinine Ratio 10 (6-26); Bilirubin,Total 0.6 mg/dL (0.3-1.0); Blood Urea Nitrogen 8 mg/dL (8-23); Calcium 9.2 mg/dL (8.6-10.3); Carbon Dioxide 21 mEq/L (23-29); Chloride 102 mEq/L (98-107); Globulin 3.3 g/dL (2.4-3.5); Glucose 328 mg/dL (70-105); Osmolality,Calculated 289 (280-300); Potassium 3.8 mEq/L (3.5-5.1); Sodium 134 mEq/L (136-145); eGFR For African Americans > 60 (> 60); eGFR For Non-African Americans > 60 (> 60)
[2019-07-14] MEDS ORDERED: Azithromycin 250 MG TABLET PO ONE (17:52)
[2019-07-14] MEDS ORDERED: cefTRIAXone 1,000 MG in Water for inj. (sterile) 10 ML IVP ONE (17:52)
[2019-07-14] MEDS ORDERED: Naloxone 0.4 MG/ML INJ IVP PRN (18:56)
[2019-07-14] MEDS ORDERED: *HR* Insulin Regular U-500 500 UNIT/ML SQ SCH (21:00)
[2019-07-14] MEDS: Bumetanide 1 MG TABLET PO SCH (21:15)
[2019-07-14] MEDS: *HR* Insulin Regular U-500 500 UNIT/ML SQ SCH (21:31)
[2019-07-15] MEDS: *HR* Heparin 5,000 UNIT/ML VIAL SQ SCH ×2 (05:52→17:40)
[2019-07-15 09:17] LABS: Immature Granulocytes % 0.3 % (0-4); Mean Corpuscular Hemoglobin 22.6 pg (28.0-33.3)
[2019-07-15 09:18] LABS: Basophils # 0.1 K/mcL (0.0-0.2); Basophils % 0.7 %; Eosinophils # 0.2 K/mcL (0.0-0.6); Eosinophils % 2.5 %; Hematocrit 40.2 % (35.3-44.9); Hemoglobin 12.9 g/dL (11.5-15.4); Immature Platelets 4.6 % (1.1-6.1); Lymphocytes # 2.3 K/mcL (0.6-4.6); Lymphocytes % 33.6 %; Mean Corpuscular HGB Conc 32.1 g/dL (31.6-35.5); Mean Corpuscular Volume 70.5 fL (83.0-100.0); Mean Platelet Volume 11.4 fL (9.4-12.4); Monocytes # 1.4 K/mcL (0.0-1.3); Monocytes % 20.8 %; Neutrophils # 2.9 K/mcL (1.6-8.9); Platelet Count 141 K/mcL (140-400); Red Cell Distribution Width 16.9 % (11.5-14.5); Segmented Neutrophils % 42.1 %; White Blood Count 6.9 K/mcL (4.3-11.1)
[2019-07-15 09:41] LABS: Alanine Aminotransferase 43 Units/L (7-52); Albumin 3.6 g/dL (3.5-5.7); Albumin/Globulin Ratio 1.1 (1.1-2.2); Alkaline Phosphatase 62 Units/L (34-104); Aspartate Amino Transferase 68 Units/L (13-39); BUN/Creatinine Ratio 9 (6-26); Bilirubin,Total 0.4 mg/dL (0.3-1.0); Blood Urea Nitrogen 7 mg/dL (8-23); Calcium 9.2 mg/dL (8.6-10.3); Carbon Dioxide 22 mEq/L (23-29); Chloride 104 mEq/L (98-107); Globulin 3.3 g/dL (2.4-3.5); Glucose 140 mg/dL (70-105); Magnesium 1.7 mg/dL (1.6-2.6); Osmolality,Calculated 284 (280-300); Phosphorous 4.5 mg/dL (2.7-4.5); Sodium 137 mEq/L (136-145); Total Protein 6.9 g/dL (6.4-8.9); eGFR For African Americans > 60 (> 60); eGFR For Non-African Americans > 60 (> 60)
[2019-07-15 10:01] LABS: Platelet Estimate Normal (Normal)
[2019-07-15] MEDS: Aspirin Enteric Coated 81 MG Tablet PO SCH (10:31)
[2019-07-15] MEDS: Sennosides/Docusate Sodium TABLET PO SCH (10:31)
[2019-07-15] MEDS: Bumetanide 1 MG TABLET PO SCH ×2 (10:32→17:45)
[2019-07-15] MEDS: Loratadine 10 MG TABLET PO SCH (10:32)
[2019-07-15] MEDS: (Liraglutide [Victoza 3-Pak] 1.8 MG) SQ SCH (10:32)
[2019-07-15] MEDS: Multivit/Ca/Min/Fe/FA 1 TAB TABLET PO SCH (10:32)
[2019-07-15] MEDS: *HR* Insulin Regular U-500 500 UNIT/ML SQ SCH ×2 (10:33→20:01)
[2019-07-15] MEDS ORDERED: *HR* Dextrose 50 % in Water (Syg) 50 ML SYRINGE IVP PRN (11:58)
[2019-07-15] MEDS ORDERED: Dextrose Gel 15 GM/37.5 ML TUBE PO PRN ×2 (11:58)
[2019-07-15] MEDS ORDERED: D5% in Water 1,000 ML IVC PRN (11:58)
[2019-07-15] MEDS: Insulin LISPRO 300 UNITS/3 ML VIAL SQ SCH ×3 (12:15→23:51)
[2019-07-15] MEDS ORDERED: Ondansetron 4 MG/2 ML VIAL IVP ONE (13:44)
[2019-07-15] MEDS ORDERED: Ringers Solution, Lactated 1,000 ML IVC SCH (13:45)
[2019-07-15] MEDS ORDERED: *HR* Propofol 200 MG/20 ML VIAL IVP ONE (14:04)
[2019-07-15] MEDS ORDERED: Lidocaine -MPF 2% 2 ML VIAL ONE (14:04)
[2019-07-15] MEDS ORDERED: Lidocaine -MPF 4% 5 ML AMPUL ONE (14:04)
[2019-07-15] MEDS ORDERED: Ondansetron 4 MG/2 ML VIAL ONE (14:04)
[2019-07-15] MEDS ORDERED: *HR* Succinylcholine 200 MG/10 ML VIAL IVP ONE (14:04)
[2019-07-15] MEDS ORDERED: *HR* PHENYLEPHRINE 1,000 MCG/10 ML SYRINGE IVP ONE ×2 (14:57)
[2019-07-15] MEDS ORDERED: *HR* Rocuronium Bromide 50 MG/5 ML VIAL ONE (15:03)
[2019-07-15] MEDS ORDERED: *HR* Phenylephrine 10 MG/ML VIAL ONE (15:07)
[2019-07-15] MEDS: predniSONE 20 MG TABLET PO SCH (17:45)
[2019-07-15] MEDS: Pantoprazole 40 MG VIAL IVP SCH (17:46)
[2019-07-15 18:55] LABS: Adenovirus Not Detected (Not Detect); Bordetella Pertussis Not Detected (Not Detect); Chlamydophila pneumoniae Not Detected (Not Detect); Coronavirus 229E Not Detected (Not Detect); Coronavirus HKU1 Not Detected (Not Detect); Coronavirus NL63 Not Detected (Not Detect); Coronavirus OC43 Not Detected (Not Detect); Human Metapneumovirus Not Detected (Not Detect); Human Rhinovirus/Enterovirus DETECTED (Not Detect); Influenza A Subtype 2009 H1 Not Detected (Not Detect); Influenza B Not Detected (Not Detect); Mycoplasma pneumoniae Not Detected (Not Detect); Parainfluenza Virus 1 Not Detected (Not Detect); Parainfluenza Virus 2 Not Detected (Not Detect); Parainfluenza Virus 3 Not Detected (Not Detect); Parainfluenza Virus 4 Not Detected (Not Detect); Respiratory Syncytial Virus Not Detected (Not Detect)
[2019-07-15] MEDS: Fluticasone Propionate Nasal 50 MCG/SPRAY BOTTLE NS SCH (20:08)
[2019-07-16] MEDS: Insulin LISPRO 300 UNITS/3 ML VIAL SQ SCH ×5 (00:19→16:39)
[2019-07-16 02:45] LABS: Basophils % 0.4 %; Immature Granulocytes % 0.2 % (0-4)
[2019-07-16 02:46] LABS: Hematocrit 42.1 % (35.3-44.9); Hemoglobin 13.1 g/dL (11.5-15.4); Immature Platelets 4.4 % (1.1-6.1); Lymphocytes # 1.8 K/mcL (0.6-4.6); Lymphocytes % 36.2 %; Mean Corpuscular HGB Conc 31.1 g/dL (31.6-35.5); Mean Corpuscular Hemoglobin 22.7 pg (28.0-33.3); Mean Corpuscular Volume 73.1 fL (83.0-100.0); Monocytes # 0.2 K/mcL (0.0-1.3); Platelet Count 149 K/mcL (140-400); Red Blood Count 5.76 M/mcL (3.82-4.97); Red Cell Distribution Width 17.8 % (11.5-14.5); Segmented Neutrophils % 60.2 %
[2019-07-16 02:58] LABS: BUN/Creatinine Ratio 13 (6-26); Blood Urea Nitrogen 14 mg/dL (8-23); Calcium 8.9 mg/dL (8.6-10.3); Carbon Dioxide 23 mEq/L (23-29); Chloride 97 mEq/L (98-107); Glucose 466 mg/dL (70-105); Magnesium 1.6 mg/dL (1.6-2.6); Osmolality,Calculated 297 (280-300); Phosphorous 3.7 mg/dL (2.7-4.5); Potassium 4.3 mEq/L (3.5-5.1); Sodium 133 mEq/L (136-145); eGFR For African Americans > 60 (> 60); eGFR For Non-African Americans 51 (> 60)
[2019-07-16] MEDS: Pantoprazole 40 MG VIAL IVP SCH ×2 (06:10→16:38)
[2019-07-16] MEDS: Bumetanide 1 MG TABLET PO SCH ×2 (08:52→16:38)
[2019-07-16] MEDS: Multivit/Ca/Min/Fe/FA 1 TAB TABLET PO SCH (08:53)
[2019-07-16] MEDS: Aspirin Enteric Coated 81 MG Tablet PO SCH (08:53)
[2019-07-16] MEDS: Fluticasone Propionate Nasal 50 MCG/SPRAY BOTTLE NS SCH ×2 (08:53→20:04)
[2019-07-16] MEDS: (Liraglutide [Victoza 3-Pak] 1.8 MG) SQ SCH (08:53)
[2019-07-16] MEDS: Loratadine 10 MG TABLET PO SCH (08:53)
[2019-07-16] MEDS: Sennosides/Docusate Sodium TABLET PO SCH (08:53)
[2019-07-16] MEDS: predniSONE 20 MG TABLET PO SCH (08:53)
[2019-07-16 08:54] LABS: INR 1.3; Prothrombin Time 14.4 Seconds (9.4-12.1)
[2019-07-16] MEDS: *HR* Insulin Regular U-500 500 UNIT/ML SQ SCH ×2 (09:01→20:04)
[2019-07-16] MEDS ORDERED: GuaiFENesin/Codeine Oral Soln 5 ML UDC PO PRN (09:49)
[2019-07-16] MEDS ORDERED: *HR* FentaNYL (PF) 100 MCG/2 ML VIAL IVP ONE (14:46)
[2019-07-16] MEDS ORDERED: *HR* Midazolam HCl 2 MG/2 ML VIAL IVP ONE (14:48)
[2019-07-16] MEDS ORDERED: 0.9 % Sodium Chloride 500 ML ONE (14:54)
[2019-07-17] MEDS: Insulin LISPRO 300 UNITS/3 ML VIAL SQ SCH ×3 (00:21→11:44)
[2019-07-17] MEDS: Pantoprazole 40 MG VIAL IVP SCH (05:37)
[2019-07-17 07:20] LABS: Eosinophils % 0.2 %; Hemoglobin 13.4 g/dL (11.5-15.4); Immature Granulocytes % 0.2 % (0-4); Lymphocytes % 46.6 %; Mean Corpuscular HGB Conc 31.2 g/dL (31.6-35.5)
[2019-07-17 07:22] LABS: Immature Platelets 4.9 % (1.1-6.1)
[2019-07-17 07:28] LABS: Basophils # 0.1 K/mcL (0.0-0.2); Basophils % 0.6 %; Lymphocytes # 4.1 K/mcL (0.6-4.6); Mean Corpuscular Hemoglobin 22.3 pg (28.0-33.3); Mean Corpuscular Volume 71.7 fL (83.0-100.0); Mean Platelet Volume 11.5 fL (9.4-12.4); Monocytes # 0.8 K/mcL (0.0-1.3); Monocytes % 9.7 %; Neutrophils # 3.7 K/mcL (1.6-8.9); Platelet Count 209 K/mcL (140-400); Red Cell Distribution Width 17.1 % (11.5-14.5); Segmented Neutrophils % 42.7 %; White Blood Count 8.7 K/mcL (4.3-11.1)
[2019-07-17 07:45] LABS: BUN/Creatinine Ratio 19 (6-26); Blood Urea Nitrogen 20 mg/dL (8-23); Calcium 8.8 mg/dL (8.6-10.3); Carbon Dioxide 30 mEq/L (23-29); Chloride 102 mEq/L (98-107); Glucose 100 mg/dL (70-105); Magnesium 1.8 mg/dL (1.6-2.6); Osmolality,Calculated 295 (280-300); Phosphorous 4.3 mg/dL (2.7-4.5); Potassium 3.4 mEq/L (3.5-5.1); Sodium 141 mEq/L (136-145); eGFR For African Americans > 60 (> 60); eGFR For Non-African Americans 52 (> 60)
[2019-07-17] MEDS: predniSONE 20 MG TABLET PO SCH (08:42)
[2019-07-17] MEDS: Aspirin Enteric Coated 81 MG Tablet PO SCH (08:42)
[2019-07-17] MEDS: Multivit/Ca/Min/Fe/FA 1 TAB TABLET PO SCH (08:42)
[2019-07-17] MEDS: Bumetanide 1 MG TABLET PO SCH (08:42)
[2019-07-17] MEDS: Loratadine 10 MG TABLET PO SCH (08:42)
[2019-07-17] MEDS: Sennosides/Docusate Sodium TABLET PO SCH (08:42)
[2019-07-17] MEDS: *HR* Insulin Regular U-500 500 UNIT/ML SQ SCH (08:43)
[2019-07-17] MEDS: (Liraglutide [Victoza 3-Pak] 1.8 MG) SQ SCH (08:43)
[2019-07-17] MEDS: Fluticasone Propionate Nasal 50 MCG/SPRAY BOTTLE NS SCH (08:46)
[2019-07-17] MEDS ORDERED: 0.9 % Sodium Chloride 500 ML ONE (09:04)
[2019-07-17] MEDS ORDERED: *HR* FentaNYL (PF) 100 MCG/2 ML VIAL IVP ONE (09:16)
[2019-07-17] MEDS ORDERED: *HR* Midazolam HCl 2 MG/2 ML VIAL IVP ONE (09:16)
[2019-07-17 14:39] VITALS: BP 100/60
== END 2019-07-17 16:18 | disposition home health service (06) | DRG 139 ==
LOC: 3BNU 14:46 → EMEROOARM 14:46 → SUATTDRO 18:51 → 3BNU 19:34
PROVIDERS: ADMIT Pharmacist; ATTEND Internal Medicine
PROC: IRLIVER (2019-07-17 12:00)